=== PATIENT | male | born 1975 ===

== ENCOUNTER 2017-03-15 11:30 | Emergency (ER) | payer BC ==
[2017-03-15 11:30] VITALS: BMI 35.6
[2017-03-15 12:02] VITALS: BP 106/71; PULSE 72; RESP 18; TEMP 97.7; O2SAT 96
--- NOTE | 2017-03-15 12:52 | C.PDOC ---
History Of Present Illness 41 y/o male presents to ED with complaint of head injury and abdominal pain, associated with constipation. Patient reports 1 week ago was walking tree branch hit his left side of head, he sustained abrasion and reports feeling lump. Patient reports constipation for some time and mild intermittent abdominal pain. Denies LOC, headache, visual changes, nausea, vomiting, diarrhea , or other associated symptoms. Time Seen by Provider: 03/15/17 12:42 Chief Complaint (Nursing): Abdominal Pain History Per: Patient History/Exam Limitations: no limitations Onset/Duration Of Symptoms: Days Current Symptoms Are (Timing): Still Present Recent travel outside of the [place]: No Past Medical History Reviewed: Historical Data, Nursing Documentation, Vital Signs Vital Signs: Last Vital Signs Temp 97.7 F 03/15/17 11:51 Pulse 72 03/15/17 11:51 Resp 18 03/15/17 11:51 BP 106/71 03/15/17 11:51 Pulse Ox 96 03/15/17 13:18 - Medical History PMH: Anemia (received blood transfusion 2 yrs ago), Back Problems, Gall Bladder Disease, Kidney Stones, Malignancy (lymphoma) Family History: States: Unknown Family Hx - Social History Hx Tobacco Use: No Hx Alcohol Use: No Hx Substance Use: No - Immunization History Hx Tetanus Toxoid Vaccination: No Hx Influenza Vaccination: No Hx Pneumococcal Vaccination: No Review Of Systems Except As Marked, All Systems Reviewed And Found Negative. Constitutional: Negative for: Fever, Chills Cardiovascular: Negative for: Chest Pain Respiratory: Negative for: Cough Gastrointestinal: Positive for: Abdominal Pain, Constipation. Negative for: Nausea, Vomiting, Diarrhea Skin: Negative for: Rash Neurological: Negative for: Headache Physical Exam - Physical Exam Appears: Non-toxic, No Acute Distress Skin: Warm, Dry Head: Normacephalic, No Tenderness, No Swelling, Abrasion (superficial, left temporal scalp), No Laceration Eye(s): bilateral: Normal Inspection, PERRL, EOMI Ear(s): Bilateral: Normal Nose: Normal, No Discharge Neck: Normal ROM, No Midline Cervical Tenderness, No Paracervical Tenderness, Supple Chest: Symmetrical Cardiovascular: Rhythm Regular Respiratory: Normal Breath Sounds, No Rales, No Rhonchi, No Wheezing Gastrointestinal/Abdominal: Soft, No Tenderness, No Distention, No Guarding, No Rebound Back: Normal Inspection, No CVA Tenderness Extremity: Normal ROM Neurological/Psych: Oriented x3, Normal Speech Gait: Steady ED Course And Treatment O2 Sat by Pulse Oximetry: 96 (RA) Pulse Ox Interpretation: Normal Medical Decision Making Medical Decision Makin y.o male with 2 separate complaints of head injury and abdominal pain with constipation. Exam shows superificial abrasion to left temporal scalp. Abdomen soft no tenderness. Patient afebrile with normal neuro exam and in no distress. He does not want any labs or xrays he just wanted check up and is asking for Rx to help with constipation. Patient given follow up instructions with PCP Dr Villasenor . Instructed to return to ER if symptoms worsen or new symptoms arise. Disposition Counseled Patient/Family Regarding: Diagnosis, Need For Followup, Rx Given - Disposition Referrals: Ki Villasenor [Staff Provider] - Disposition: HOME/ ROUTINE Disposition Time: 12:51 Condition: STABLE Additional Instructions: Prescription was sent to [facility] Follow up with your primary medical doctor Dr Villasenor n 2-5 days for further evaluation. Return to the emergency department at any time if symptoms persist or worsen. 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 - Scribe Statement The provider has reviewed the documentation as recorded by the Destini Bond Provider Scribe Attestation: All medical record entries made by the Destini were at my direction and personally dictated by me. I have reviewed the chart and agree that the record accurately reflects my personal performance of the history, physical exam, medical decision making, and the department course for this patient. I have also personally directed, reviewed, and agree with the discharge instructions and disposition.
== END 2017-03-15 13:02 | disposition home or self-care (01) ==
LOC: C.ER 11:30
DX: S00.01XA Abrasion of scalp, initial encounter (principal); W22.8XXA Striking against or struck by other objects, initial encounter; Y93.01 Activity, walking, marching and hiking; K59.00 Constipation, unspecified

== ENCOUNTER 2017-03-19 12:39 | Emergency (ER) | payer BC ==
[2017-03-19 13:23] VITALS: BP 121/79; PULSE 80; RESP 16; TEMP 98.1; O2SAT 97
[2017-03-19 13:24] VITALS: BMI 33.7
[2017-03-19] MEDS ORDERED: Naproxen 550 mg Tab PO STA (14:46)
--- NOTE | 2017-03-19 14:52 | C.PDOC ---
History Of Present Illness A 41 year old male c/o of dental pain for the last 2 days. Patient notes that he was seen by his dentist, where two root canals were done and one tooth was removed. Patients next appointment is March 29 with his dentist. Patient last use of antibiotics was a few months ago. Patient reports headaches but denies fever , chills, vomiting, nausea, trauma to the area, or any other complaints. Time Seen by Provider: 03/19/17 14:03 Chief Complaint (Nursing): Dental Pain History Per: Patient History/Exam Limitations: no limitations Onset/Duration Of Symptoms: Days Current Symptoms Are (Timing): Still Present Severity: Mild Quality: Positive for: "Pain" Additional History Per: Patient Past Medical History Reviewed: Historical Data, Nursing Documentation, Vital Signs Vital Signs: Last Vital Signs Temp 98.1 F 03/19/17 13:22 Pulse 80 03/19/17 13:22 Resp 16 03/19/17 13:22 BP 121/79 03/19/17 13:22 Pulse Ox 97 03/19/17 13:22 - Medical History PMH: Anemia (received blood transfusion 2 yrs ago), Back Problems, Gall Bladder Disease, Kidney Stones, Malignancy (lymphoma), Chronic Kidney Disease Family History: States: Unknown Family Hx - Social History Hx Tobacco Use: No Hx Alcohol Use: No Hx Substance Use: No - Immunization History Hx Tetanus Toxoid Vaccination: No Hx Influenza Vaccination: No Hx Pneumococcal Vaccination: No Review Of Systems Except As Marked, All Systems Reviewed And Found Negative. Constitutional: Negative for: Fever, Chills, Other (Trauma to the area) ENT: Positive for: Mouth Pain (Dental pain) Gastrointestinal: Negative for: Nausea, Vomiting Neurological: Positive for: Headache Physical Exam - Physical Exam Appears: Non-toxic, No Acute Distress Skin: Warm, Dry Head: Atraumatic, Normacephalic Eye(s): bilateral: Normal Inspection, EOMI Nose: Normal Oral Mucosa: Moist Tongue: Normal Appearing Teeth: No Normal Dentition (Poor dentition), Caries (Multiple caries ) Gingiva: Erythema, Tender (Tenderness and erythema to the gingiva of the right canine), No Bleeding, No Abscess Throat: Normal, No Exudate Neck: Normal ROM, Supple Neurological/Psych: Oriented x3, Normal Speech, Normal Cognition ED Course And Treatment O2 Sat by Pulse Oximetry: 97 (RA) Pulse Ox Interpretation: Normal
--- NOTE | 2017-03-19 14:55 | C.PDOC ---
History Of Present Illness A 41 year old male c/o of dental pain for the last 2 days. Patient notes that he was seen by his dentist and need multiple extractions but "they are too expensive. Notes that in the last few months he had two root canals and one tooth extracted. Patients next appointment is March 29 with his dentist. Patient last use of antibiotics was a 5+ months ago. Patient reports headaches but denies fever, chills, vomiting, nausea, trauma to the area, or any other complaints. Pt was evaluated in ED multiple times for the same complaint. Time Seen by Provider: 03/19/17 14:03 Chief Complaint (Nursing): Dental Pain History Per: Patient History/Exam Limitations: no limitations Onset/Duration Of Symptoms: Days Current Symptoms Are (Timing): Still Present Severity: Mild Quality: Positive for: "Pain" Past Medical History Reviewed: Historical Data, Nursing Documentation, Vital Signs Vital Signs: Last Vital Signs Temp 98.1 F 03/19/17 13:22 Pulse 80 03/19/17 13:22 Resp 16 03/19/17 13:22 BP 121/79 03/19/17 13:22 Pulse Ox 97 03/19/17 15:12 - Medical History PMH: Anemia (received blood transfusion 2 yrs ago), Back Problems, Gall Bladder Disease, Kidney Stones, Malignancy (lymphoma), Chronic Kidney Disease Family History: States: Unknown Family Hx - Social History Hx Tobacco Use: No Hx Alcohol Use: No Hx Substance Use: No - Immunization History Hx Tetanus Toxoid Vaccination: No Hx Influenza Vaccination: No Hx Pneumococcal Vaccination: No Review Of Systems Constitutional: Negative for: Fever, Chills, Other (Trauma to the area) ENT: Positive for: Mouth Pain (Dental pain) Gastrointestinal: Negative for: Nausea, Vomiting Neurological: Positive for: Headache Physical Exam - Physical Exam Appears: Non-toxic, No Acute Distress Skin: Warm, Dry Head: Atraumatic, Normacephalic Eye(s): bilateral: Normal Inspection, EOMI Nose: Normal Oral Mucosa: Moist Teeth: No Normal Dentition (Poor dentition), Caries (Multiple caries) Gingiva: Erythema (Tenderness and erythema to the gingiva of the right canine), Swelling (mild), Tender, No Bleeding, No Abscess Throat: Normal, No Exudate Neck: Normal ROM, Supple Lymphatic: Normal Exam Chest: Symmetrical Cardiovascular: Rhythm Regular Respiratory: Normal Breath Sounds Neurological/Psych: Oriented x3, Normal Speech, Normal Cognition ED Course And Treatment O2 Sat by Pulse Oximetry: 97 (RA) Pulse Ox Interpretation: Normal Progress Note: Cleocon, Anaprox, Lidocaine, reassess and disposition. On reassessment, patient is resting comfortably, and is in no acute distress. DIsucssed concern for frequent antibiotic use. Discussed strict dental follow up in 1-2 days. Pt requested lido viscious noted much improvment with use last time. Disposition - Disposition Referrals: [facility] [Outside] Disposition: HOME/ ROUTINE Disposition Time: 14:51 Condition: STABLE Additional Instructions: Follow up with your dentist or clinic in 2-5 days for further evaluation. Take medications as prescribed. Return to the emergency department at any time if symptoms persist or worsen. Prescriptions: Clindamycin [Cleocin] 300 mg PO Q6 #28 cap Lidocaine 2% Viscous 10 ml MM Q6 PRN #10 ml PRN Reason: Pain, Mild (1-3) Naproxen [Naprosyn] 1 tab PO BID PRN #20 tab PRN Reason: Pain Instructions: Toothache (ED) - Clinical Impression Clinical Impression: Toothache - Scribe Statement The provider has reviewed the documentation as recorded by the Scribe Tawnya contreras All medical record entries made by the Scribe were at my direction and personally dictated by me. I have reviewed the chart and agree that the record accurately reflects my personal performance of the history, physical exam, medical decision making, and the department course for this patient. I have also personally directed, reviewed, and agree with the discharge instructions and disposition.
[2017-03-19] MEDS ORDERED: Naproxen 550 mg Tab PO ONE (15:00)
== END 2017-03-19 15:02 | disposition home or self-care (01) ==
LOC: C.ER 12:39
DX: K08.89 Other specified disorders of teeth and supporting structures (principal)

== ENCOUNTER 2017-03-25 23:13 | Emergency (ER) | payer BC ==
[2017-03-25 23:13] VITALS: BMI 33.7
[2017-03-25 23:26] VITALS: BP 126/68; PULSE 68; RESP 20; TEMP 98; O2SAT 100
--- NOTE | 2017-03-26 | C.PDOC ---
History Of Present Illness 41 y/o male presents to ED with complaint painful lump to the left side of his head for 2 days. Patient reports he recently had a dental infection and is currently taking antibiotics for it. Otherwise, denies neck pain, fever, chills , numbness, weakness, headache, dizziness, or other associated symptoms. Time Seen by Provider: 03/25/17 23:32 Chief Complaint (Nursing): Medical Clearance History Per: Patient History/Exam Limitations: no limitations Onset/Duration Of Symptoms: Days Current Symptoms Are (Timing): Still Present Recent travel outside of the [place]: No Past Medical History Reviewed: Historical Data, Nursing Documentation, Vital Signs Vital Signs: Last Vital Signs Temp 98 F 03/25/17 23:22 Pulse 68 03/25/17 23:22 Resp 20 03/25/17 23:22 BP 126/68 03/25/17 23:22 Pulse Ox 100 03/26/17 01:43 - Medical History PMH: Anemia (received blood transfusion 2 yrs ago), Back Problems, Gall Bladder Disease, Kidney Stones, Malignancy (lymphoma), Chronic Kidney Disease Family History: States: Unknown Family Hx - Social History Hx Tobacco Use: No Hx Alcohol Use: No Hx Substance Use: No - Immunization History Hx Tetanus Toxoid Vaccination: No Hx Influenza Vaccination: No Hx Pneumococcal Vaccination: No Review Of Systems Except As Marked, All Systems Reviewed And Found Negative. Constitutional: Negative for: Fever, Chills Respiratory: Negative for: Cough Gastrointestinal: Negative for: Nausea, Vomiting Musculoskeletal: Negative for: Neck Pain Skin: Positive for: Other (painful lump left side of head). Negative for: Rash Neurological: Negative for: Weakness, Numbness, Headache, Dizziness Physical Exam - Physical Exam Appears: Non-toxic, No Acute Distress Skin: Warm, Dry Head: Atraumatic, Normacephalic Eye(s): bilateral: Normal Inspection, PERRL, EOMI Ear(s): Bilateral: Normal Oral Mucosa: Moist Throat: Normal, No Erythema, No Exudate, No Drooling Neck: No Midline Cervical Tenderness, No Paracervical Tenderness, Supple Lymphatic: Adenopathy (1.0 cm soft, freely movable lymph node to left preauricular region) Chest: Symmetrical Cardiovascular: Rhythm Regular, No Murmur Respiratory: Normal Breath Sounds, No Rales, No Rhonchi, No Wheezing Extremity: Normal ROM, Capillary Refill (< 2 sec. ) Neurological/Psych: Oriented x3, Normal Speech, Normal Cognition ED Course And Treatment O2 Sat by Pulse Oximetry: 100 (RA) Pulse Ox Interpretation: Normal Progress Note: On reassessment, patient is resting comfortably, and is in no acute distress. Patient advised to continue taking antibiotics as directed and instructed to follow up with clinic/PMD within 1-2 days. Medical Decision Making Medical Decision Making: The patient lump has no evidence of cellulitis, this is lymphadenopathy. Pt was instructed to continue taking the antibiotics and follow up . Disposition - Disposition Referrals: Ki Villasenor [Staff Provider] - Disposition: HOME/ ROUTINE Disposition Time: 23:59 Condition: GOOD Additional Instructions: Continue taking the antibiotics for the dental infection until it is finished. Follow up with the dentist within 1-2 days without fail. Return if worsened. 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 - Scribe Statement The provider has reviewed the documentation as recorded by the Destini Bond Provider Scribe Attestation: All medical record entries made by the Destini were at my direction and personally dictated by me. I have reviewed the chart and agree that the record accurately reflects my personal performance of the history, physical exam, medical decision making, and the department course for this patient. I have also personally directed, reviewed, and agree with the discharge instructions and disposition.
== END 2017-03-26 00:03 | disposition home or self-care (01) ==
LOC: C.ER 23:13
DX: R59.1 Generalized enlarged lymph nodes (principal)

== ENCOUNTER 2017-04-08 11:20 | Emergency (ER) | payer BC ==
[2017-04-08 11:21] VITALS: BMI 33.7
[2017-04-08] MEDS ORDERED: Lidocaine 2% Inj (20ml) INFIL STA (11:42)
[2017-04-08] MEDS ORDERED: Lidocaine 2% Inj (20ml) ONE (11:57)
[2017-04-08 12:29] VITALS: BP 108/72; PULSE 64; RESP 16; TEMP 98
--- NOTE | 2017-04-08 12:44 | C.PDOC ---
History Of Present Illness 42-year-old male, presents to the emergency department with complaints of abscess to the upper back. Patient states that this started out as a small pimple, but grew bigger and more painful over the past three days. Denies fevers or chills. Chief Complaint (Nursing): Abnormal Skin Integrity History Per: Patient History/Exam Limitations: no limitations Past Medical History Reviewed: Historical Data, Nursing Documentation, Vital Signs Vital Signs: Last Vital Signs Temp 98.0 F 04/08/17 12:28 Pulse 64 04/08/17 12:28 Resp 16 04/08/17 12:28 BP 108/72 04/08/17 12:28 Pulse Ox 99 04/08/17 15:57 - Medical History PMH: Anemia (received blood transfusion 2 yrs ago), Back Problems, Gall Bladder Disease, Kidney Stones, Malignancy (lymphoma), Chronic Kidney Disease Family History: States: No Known Family Hx - Social History Hx Tobacco Use: No Hx Alcohol Use: No Hx Substance Use: No - Immunization History Hx Tetanus Toxoid Vaccination: No Hx Influenza Vaccination: No Hx Pneumococcal Vaccination: No Review Of Systems Except As Marked, All Systems Reviewed And Found Negative. Constitutional: Negative for: Fever, Chills Gastrointestinal: Negative for: Nausea, Vomiting Physical Exam - Physical Exam Appears: Non-toxic, No Acute Distress Skin: Warm, Dry, No Rash, Other (Mid-upper back: Fluctuant abscess. No drainage. ) Head: Atraumatic, Normacephalic Eye(s): bilateral: Normal Inspection Nose: Normal Lips: Normal Appearing Neck: Normal ROM ED Course And Treatment O2 Sat by Pulse Oximetry: 99 Progress Note: Patient was treated with Clindamycin po. - Incision & Drainage Of Abscess Anesthesia: Lidocaine 2% Prep Used: Betadine Procedure: Incised W/Scalpel Blade#: (11), Drained Pus (large amount), Irrigated Cavity W/Saline, Probed To Break Up Loculations, Packed W/Gauze, Cultures Obtained And Sent To Lab Disposition - Disposition Referrals: Ki Villasenor [Staff Provider] - Disposition: HOME/ ROUTINE Disposition Time: 12:23 Condition: STABLE Additional Instructions: Follow up with PMD within 2-3 days. Return nto ED if feel worse. Return to ED in 2 days for wound check and dressing change. Prescriptions: Clindamycin [Cleocin] 300 mg PO Q6 #28 cap Instructions: Abscess Incision and Drainage (ED) - Clinical Impression Clinical Impression: Abscess - Scribe Statement The provider has reviewed the documentation as recorded by the Treibroma Gould All medical record entries made by the Treibe were at my direction and personally dictated by me. I have reviewed the chart and agree that the record accurately reflects my personal performance of the history, physical exam, medical decision making, and the department course for this patient. I have also personally directed, reviewed, and agree with the discharge instructions and disposition.
[2017-04-08 12:45] VITALS: O2SAT 99
== END 2017-04-08 13:12 | disposition home or self-care (01) ==
LOC: C.ER 11:20
DX: L02.212 Cutaneous abscess of back [any part, except buttock and flank] (principal)

== ENCOUNTER 2017-04-10 02:13 | Emergency (ER) | payer BC ==
[2017-04-10 02:13] VITALS: BMI 33.7
--- NOTE | 2017-04-10 02:38 | C.PDOC ---
History Of Present Illness Patient presents to the ER with a complaint of waking up with chest pain. Patient states the pain worsens when he swallows, describes it has a burning sensation. Denies fever, chills, nausea and vomiting. Time Seen by Provider: 04/10/17 02:38 Chief Complaint (Nursing): Shortness Of Breath History Per: Patient History/Exam Limitations: no limitations Onset/Duration Of Symptoms: Hrs Current Symptoms Are (Timing): Still Present Initiating Event: Other (Not known) Quality: Other (Burning) Exacerbating Factor(s): Other (Swallowing) Current Respiratory Medications: None Severity: Mild Pain Scale Rating Of: 4 Associated Symptoms: Chest Pain. denies: Fever, Chills, Other (Nausea, Vomiting ) Recent travel outside of the [place]: No Past Medical History Reviewed: Historical Data, Nursing Documentation, Vital Signs Vital Signs: Last Vital Signs Temp 97.2 F L 04/10/17 04:00 Pulse 64 04/10/17 04:00 Resp 20 04/10/17 04:00 BP 123/63 04/10/17 04:00 Pulse Ox 97 04/10/17 04:00 - Medical History PMH: Anemia (received blood transfusion 2 yrs ago), Back Problems, Gall Bladder Disease, Kidney Stones, Malignancy (lymphoma), Chronic Kidney Disease Surgical History: No Surg Hx Family History: States: No Known Family Hx - Social History Hx Tobacco Use: No Hx Alcohol Use: No Hx Substance Use: No - Immunization History Hx Tetanus Toxoid Vaccination: No Hx Influenza Vaccination: No Hx Pneumococcal Vaccination: No Review Of Systems Constitutional: Negative for: Fever, Chills Cardiovascular: Positive for: Chest Pain Gastrointestinal: Negative for: Nausea, Vomiting Physical Exam - Physical Exam Appears: Non-toxic Skin: Warm, Dry Eye(s): bilateral: Normal Inspection Oral Mucosa: Moist Neck: Supple Chest: Symmetrical, No Tenderness Cardiovascular: Rhythm Regular, No Murmur Respiratory: No Rales, No Rhonchi, No Wheezing Gastrointestinal/Abdominal: Soft, No Tenderness Back: Other (Upper left abscess that was recently I&Ded) Extremity: Normal ROM Extremity: Bilateral: Normal Color And Temperature, Normal ROM Neurological/Psych: Oriented x3, Normal Speech, Normal Cognition Gait: Steady ED Course And Treatment - Laboratory Results Result Diagrams: 04/10/17 03:21 04/10/17 03:21 ECG: Interpreted By Me, Viewed By Me ECG Rhythm: Sinus Rhythm (68), 1st Degree HB, Nonspecific Changes O2 Sat by Pulse Oximetry: 96 Pulse Ox Interpretation: Normal - Radiology CXR: Interpreted by Me, Viewed By Me CXR Interpretation: Yes: Other (unchanged from 12/06/16). No: Infiltrates, Fracture, Pnemothorax Progress Note: EKG, blood work and CXR ordered. Pepcid and ecotrin administered. Reevaluation Time: 04:13 Reassessment Condition: Improved Disposition Counseled Patient/Family Regarding: Studies Performed, Diagnosis, Need For Followup, Rx Given - Disposition Referrals: Ki Villasenor [Staff Provider] - Disposition: HOME/ ROUTINE Disposition Time: 02:38 Condition: FAIR Prescriptions: Naproxen [Naprosyn] 1 tab PO BID PRN #25 tab PRN Reason: Pain Pantoprazole Sodium [Protonix] 20 mg PO DAILY #15 tablet. Instructions: Chest Pain (DC), Acute Wound Care (ED) - Clinical Impression Clinical Impression: Chest pain, Wound check, abscess - Scribe Statement The provider has reviewed the documentation as recorded by the Scribroma Mcintosh All medical record entries made by the Scribe were at my direction and personally dictated by me. I have reviewed the chart and agree that the record accurately reflects my personal performance of the history, physical exam, medical decision making, and the department course for this patient. I have also personally directed, reviewed, and agree with the discharge instructions and disposition.
[2017-04-10] MEDS ORDERED: Aspirin 325 mg EC Tablets PO STA (02:41)
[2017-04-10 03:27] LABS: BASO % 0.2 % (0.0-2.0); EOS # 0.2 K/uL (0.0-0.7); EOS % 2.1 % (0.0-4.0); HEMATOCRIT 40.8 % (35.0-51.0); LYMPH # 2.2 K/uL (1.0-4.3); MEAN CORPUSCULAR HEMOGLOBIN 27.9 pg (27.0-31.0); MEAN CORPUSCULAR HGB CONC 33.2 g/dL (33.0-37.0); MONO # 0.6 K/uL (0.0-0.8); MONO % 7.9 % (0.0-10.0); RED CELL DISTRIBUTION WIDTH 14.5 % (11.5-14.5); WHITE BLOOD COUNT 7.6 K/uL (4.8-10.8)
[2017-04-10 03:30] LABS: CHLORIDE 102 mmol/L (98-107)
[2017-04-10 03:31] LABS: POTASSIUM 3.9 mmol/L (3.6-5.2); SODIUM 138 mmol/L (132-148)
[2017-04-10 03:33] LABS: ALB/GLOB RATIO 1.5 (1.0-2.1); ALKALINE PHOSPHATASE 62 U/L (38-126); AST/SGOT 33 U/L (17-59); BILIRUBIN,TOTAL 0.5 mg/dL (0.2-1.3); CARBON DIOXIDE 26 mmol/L (22-30); GFR AFRICAN-AMERICAN > 60; TOTAL PROTEIN 6.9 g/dL (6.3-8.3)
[2017-04-10 03:34] LABS: ALT/SGPT 32 U/L (21-72); BLOOD UREA NITROGEN 18 mg/dL (9-20); CALCIUM 8.6 mg/dl (8.6-10.4); GLUCOSE,RANDOM 101 mg/dL (75-110)
[2017-04-10 04:05] VITALS: BP 123/63; PULSE 64; RESP 20; TEMP 97.2
[2017-04-10 04:16] VITALS: O2SAT 96
--- NOTE | 2017-04-10 08:21 | RAD ---
PROCEDURE: CHEST RADIOGRAPH, 1 VIEW. Technique: Single view portable semi erect @ 02:50. HISTORY: chest pain COMPARISON: None available. FINDINGS: LUNGS: Clear. PLEURA: No pneumothorax or pleural fluid seen. CARDIOVASCULAR: No radiographic findings to suggest acute or significant cardiovascular disease. Venous access catheter in stable, satisfactory position. OSSEOUS STRUCTURES: No significant abnormalities. VISUALIZED UPPER ABDOMEN: Normal. OTHER FINDINGS: None. IMPRESSION: No active disease. No acute/significant interval changes.
--- NOTE | 2017-04-13 19:51 | CARD ---
APPROVED REPORT EKG Measurement Heart [id number] <Conclusion> Normal sinus rhythm Nonspecific T wave abnormality Abnormal ECG
== END 2017-04-10 04:21 | disposition home or self-care (01) ==
LOC: C.ER 02:13
DX: R07.9 Chest pain, unspecified (principal); Z48.00 Encounter for change or removal of nonsurgical wound dressing

== ENCOUNTER 2017-04-27 | Emergency (ER) | payer BC ==
[2017-04-27 00:01] VITALS: BMI 33.7
[2017-04-27 00:23] VITALS: RESP 20; O2SAT 98
[2017-04-27] MEDS ORDERED: Bacitracin 500 Units/gm Oint Foilpak UD TOP ONE (01:47)
--- NOTE | 2017-04-27 01:47 | C.PDOC ---
History Of Present Illness 42 yo male c/o "bug bite" to the left leg for 2 days. Pt notes he felt something bite him, area got itchy and red. No discharge. No fever. Also notes "bump" to the left side of the neck. Recent episode last month which resolved. No SOB. No chest pain. No fever. No neck pain. Notes h/o lymphoma with chemo three years ago. Time Seen by Provider: 04/27/17 01:04 Chief Complaint (Nursing): Abnormal Skin Integrity History Per: Patient History/Exam Limitations: no limitations Onset/Duration Of Symptoms: Hrs Current Symptoms Are (Timing): Still Present Past Medical History Vital Signs: Last Vital Signs Temp 97.6 F 04/27/17 02:53 Pulse 81 04/27/17 02:53 Resp 20 04/27/17 02:53 BP 132/70 04/27/17 02:53 Pulse Ox 98 04/27/17 02:53 - Medical History PMH: Anemia (received blood transfusion 2 yrs ago), Back Problems, Gall Bladder Disease, Kidney Stones, Malignancy (lymphoma), Chronic Kidney Disease Family History: States: Unknown Family Hx - Social History Hx Tobacco Use: No Hx Alcohol Use: No Hx Substance Use: No - Immunization History Hx Tetanus Toxoid Vaccination: No Hx Influenza Vaccination: No Hx Pneumococcal Vaccination: No Review Of Systems Except As Marked, All Systems Reviewed And Found Negative. Physical Exam - Physical Exam Appears: Well, Non-toxic, No Acute Distress Skin: Warm, Dry, Other ((+) 1 cm area on ertyhema and dry skin to the medial aspect of lower leg. No fuctuance. No discharge. ) Head: Atraumatic, Normacephalic Eye(s): bilateral: Normal Inspection, EOMI Nose: Normal Oral Mucosa: Moist Throat: Normal Neck: Normal, Normal ROM, Supple Lymphatic: Adenopathy (<1 cm lower cervical lymphadenopathy), No Axilla Node Tenderness Chest: Symmetrical Cardiovascular: Rhythm Regular Respiratory: Normal Breath Sounds Gastrointestinal/Abdominal: Normal Exam, Soft, No Tenderness Back: Normal Inspection Extremity: Normal ROM Neurological/Psych: Oriented x3, Normal Speech, Normal Cognition ED Course And Treatment O2 Sat by Pulse Oximetry: 98 Progress Note: DIscussed with pt that leg erythema looks liekly to reaction to bug bite and itching. No evdince of infection. Will given RX if symtpoms persist or worsen. Also discussed with pt concern for lymphadenopathy. No signs of acute distress or infection. Pt has appt with oncology in a few days. Insturcted rstrict follow up. Case discussed with Dr Morrow, agreed upon plan, treatment and discharge. Disposition - Disposition Disposition: HOME/ ROUTINE Disposition Time: 01:45 Condition: STABLE Additional Instructions: Watch for signs of increased infection including redness, swelling and discharge. Follow up with your cancer doctor, Dr rBown, in 2-3 days. Return to ER if symptoms persist or worsen. Prescriptions: Bacitracin OINT 1 applic TP BID #1 tube Cephalexin [cephalexin] 500 mg PO BID #14 cap Instructions: Insect Bite or Sting (ED) - Clinical Impression Clinical Impression: Bug bite, Lymphadenopathy
[2017-04-27] MEDS ORDERED: Bacitracin 500 Units/gm Oint Foilpak UD ONE (01:57)
[2017-04-27 02:54] VITALS: BP 132/70; PULSE 81; TEMP 97.6
== END 2017-04-27 02:53 | disposition home or self-care (01) ==
LOC: C.ER
DX: S80.862A Insect bite (nonvenomous), left lower leg, initial encounter (principal); W57.XXXA Bitten or stung by nonvenomous insect and other nonvenomous arthropods, initial encounter; R59.1 Generalized enlarged lymph nodes

== ENCOUNTER 2017-05-26 23:20 | Emergency (ER) | payer BC ==
[2017-05-26 23:21] VITALS: BMI 33.7
[2017-05-27 00:13] LABS: BASO # 0.1 K/uL (0.0-0.2); EOS # 0.2 K/uL (0.0-0.7); HEMOGLOBIN 14.6 g/dL (12.0-18.0)
[2017-05-27 00:15] LABS: EOS % 2.7 % (0.0-4.0); LYMPH # 2.5 K/uL (1.0-4.3); LYMPH % 30.4 % (20.0-40.0); MEAN CELL VOLUME 83.9 fL (80.0-94.0); MEAN CORPUSCULAR HEMOGLOBIN 27.2 pg (27.0-31.0); MEAN CORPUSCULAR HGB CONC 32.5 g/dL (33.0-37.0); MONO # 0.5 K/uL (0.0-0.8); MONO % 5.9 % (0.0-10.0); NEUT # 4.8 K/uL (1.8-7.0); NRBC % 0.1 % (0.0-2.0); RBC 5.36 Mil/uL (4.40-5.90); RED CELL DISTRIBUTION WIDTH 14.3 % (11.5-14.5); WHITE BLOOD COUNT 8.1 K/uL (4.8-10.8)
[2017-05-27 00:25] LABS: BLOOD UREA NITROGEN 12 mg/dL (9-20); CALCIUM 8.5 mg/dl (8.6-10.4); GFR AFRICAN-AMERICAN > 60; GFR NON-AFRICAN AMERICAN > 60
--- NOTE | 2017-05-27 00:44 | C.PDOC ---
History Of Present Illness Pt c/o left sided headache. He also has left sided toothache. Time Seen by Provider: 05/26/17 23:41 Chief Complaint (Nursing): Headache History Per: Patient Onset/Duration Of Symptoms: Days (1), Intermittent Episodes Current Symptoms Are (Timing): Gone Severity: Moderate Quality: "Pain" Additional History Per: Prior Records Past Medical History Reviewed: Historical Data, Nursing Documentation, Vital Signs Vital Signs: Last Vital Signs Temp 98.1 F 05/26/17 23:25 Pulse 69 05/26/17 23:25 Resp 17 05/26/17 23:25 BP 108/68 05/26/17 23:25 Pulse Ox 96 05/26/17 23:25 - Medical History PMH: Anemia (received blood transfusion 2 yrs ago), Back Problems, Gall Bladder Disease, Kidney Stones, Malignancy (lymphoma), Chronic Kidney Disease Family History: States: Unknown Family Hx - Social History Hx Tobacco Use: No Hx Alcohol Use: No Hx Substance Use: No - Immunization History Hx Tetanus Toxoid Vaccination: No Hx Influenza Vaccination: No Hx Pneumococcal Vaccination: No Review Of Systems Except As Marked, All Systems Reviewed And Found Negative. Constitutional: Negative for: Fever, Weakness Eyes: Negative for: Pain, Vision Change ENT: Positive for: Mouth Pain. Negative for: Throat Pain Cardiovascular: Negative for: Chest Pain Respiratory: Negative for: Shortness of Breath Gastrointestinal: Negative for: Nausea, Vomiting, Abdominal Pain Musculoskeletal: Negative for: Neck Pain Skin: Negative for: Rash Neurological: Positive for: Headache. Negative for: Weakness, Numbness, Incoordination, Change in Speech, Confusion, Seizures, Altered Mental Status Physical Exam - Physical Exam Appears: Non-toxic, No Acute Distress Skin: Normal Color, Warm, Dry, No Rash Head: Atraumatic Eye(s): bilateral: Normal Inspection, PERRL, EOMI Ear(s): Bilateral: Normal Oral Mucosa: Moist, No Drooling, No Trismus Tongue: Normal Appearing Teeth: Caries, Tender To Palpation (left upper) Gingiva: No Abscess Throat: Normal Neck: Normal ROM, Supple Cardiovascular: Rhythm Regular Respiratory: Normal Breath Sounds, No Accessory Muscle Use Gastrointestinal/Abdominal: Soft, No Tenderness Extremity: Normal ROM Neurological/Psych: Oriented x3, Normal Speech, Normal Cognition, Normal Cranial Nerves, No Cerebellar Signs, Normal Motor, Normal Sensation ED Course And Treatment - Laboratory Results Result Diagrams: 05/27/17 00:11 05/27/17 00:11 Lab Interpretation: No Acute Changes ECG: Interpreted By Me, Viewed By Me ECG Rhythm: Sinus Rhythm, Nonspecific Changes ECG Interpretation: No Acute Changes Rate From EC O2 Sat by Pulse Oximetry: 96 Pulse Ox Interpretation: Normal Reassessment Condition: Improved Disposition Counseled Patient/Family Regarding: Studies Performed, Diagnosis, Need For Followup, Rx Given - Disposition Disposition: HOME/ ROUTINE Disposition Time: 00:44 Condition: IMPROVED Additional Instructions: Follow up with your doctor for further evaluation, including MRI of the head. Follow up with a dentist. Return to the ER if you develop fever, vomiting, weakness, numbness, worsening of symptoms or if you have any other concerns. Prescriptions: Amoxicillin/Clavulanate [Augmentin 875 MG-125 MG] 1 tab PO BID #14 tab Instructions: Dental Caries (ED) - Clinical Impression Clinical Impression: Left-sided headache, Toothache, Poor dentition
[2017-05-27 05:46] VITALS: BP 105/69; PULSE 70; RESP 18; TEMP 97.5; O2SAT 97
--- NOTE | 2017-05-28 13:32 | CARD ---
APPROVED REPORT EKG Measurement Heart [id number] SD [id number] [id number] <Conclusion> Normal sinus rhythm Nonspecific T wave abnormality Abnormal ECG
== END 2017-05-27 00:50 | disposition home or self-care (01) ==
LOC: C.ER 23:20
DX: K02.9 Dental caries, unspecified (principal)
CPT/HCPCS: 80048; 85025; 93005; 96374; 99284; J1885

== ENCOUNTER 2017-08-22 18:08 | Emergency (ER) | payer BC ==
[2017-08-22 18:08] VITALS: BMI 33.7
[2017-08-22 18:22] VITALS: TEMP 97.8
[2017-08-22] MEDS ORDERED: Amoxicillin-Clav 875-125 mg Tab PO STA (19:05)
[2017-08-22] MEDS ORDERED: Amoxicillin-Clav 875-125 mg Tab PO ONE (19:25)
--- NOTE | 2017-08-22 19:36 | C.PDOC ---
History Of Present Illness 42 year old male presents to the ED with complaints of dental pain. Patient states that he had an infection in his mouth and has not had the time to get his teeth fixed due to fear of missing time in his new job. He denies fever, chills. Time Seen by Provider: 08/22/17 18:39 Chief Complaint (Nursing): Dental Pain History Per: Patient History/Exam Limitations: no limitations Onset/Duration Of Symptoms: Days Current Symptoms Are (Timing): Still Present Quality: Positive for: "Pain" Recent travel outside of the [place]: No Additional History Per: Patient Past Medical History Reviewed: Historical Data, Nursing Documentation, Vital Signs Vital Signs: Last Vital Signs Temp 97.8 F 08/22/17 18:21 Pulse 75 08/22/17 19:45 Resp 17 08/22/17 19:45 BP 112/68 08/22/17 19:45 Pulse Ox 100 08/22/17 20:59 - Medical History PMH: Anemia (received blood transfusion 2 yrs ago), Back Problems, Gall Bladder Disease, Kidney Stones, Malignancy (lymphoma), Chronic Kidney Disease Surgical History: No Surg Hx Family History: States: Unknown Family Hx - Social History Hx Tobacco Use: No Hx Alcohol Use: No Hx Substance Use: No - Immunization History Hx Tetanus Toxoid Vaccination: No Hx Influenza Vaccination: No Hx Pneumococcal Vaccination: No Review Of Systems Constitutional: Negative for: Fever, Chills ENT: Positive for: Mouth Pain. Negative for: Mouth Swelling, Throat Swelling Physical Exam - Physical Exam Appears: Well, Non-toxic, No Acute Distress Skin: Normal Color, Warm, Dry, No Rash Head: Atraumatic, Normacephalic Eye(s): bilateral: Normal Inspection, PERRL, EOMI Oral Mucosa: Moist Teeth: No Normal Dentition (Cracked teeth with mild swelling and tenderness) Gingiva: Normal Appearing, No Swelling, No Abscess Throat: Normal, No Erythema, No Exudate Neck: Normal ROM, Supple Chest: Symmetrical, No Tenderness Respiratory: Normal Breath Sounds Extremity: Normal ROM Neurological/Psych: Oriented x3, Normal Speech, Normal Cognition, Normal Motor, Normal Sensation Gait: Steady ED Course And Treatment O2 Sat by Pulse Oximetry: 100 (Room air) Pulse Ox Interpretation: Normal Medical Decision Making Medical Decision Making: Plan : * Augmentin PO * Motrin 600 mg PO Disposition Doctor Will See Patient In The: Office - Disposition Referrals: Betzy Johnson DMD [Staff Provider] - Monty Guajardo DMD [Staff Provider] - Freddie Green DMD [Staff Provider] - Disposition: HOME/ ROUTINE Disposition Time: 19:37 Condition: GOOD Additional Instructions: Follow up with the medical doctor within 1-2 days. Return if worsened. Prescriptions: Amoxicillin/Clavulanate [Augmentin 875 MG-125 MG] 1 tab PO BID #14 tab Ibuprofen [Motrin Tab] 800 mg PO TID #20 tab Instructions: Dental Abscess (ED) Forms: [facility] (Khmer) - Clinical Impression Clinical Impression: Dental abscess - PA / FAMILY MEDICINE PHYSICIAN ASSISTANT / Resident Statement MD/DO has reviewed & agrees with the documentation as recorded. - Scribe Statement The provider has reviewed the documentation as recorded by the Scribe Asa Daniels All medical record entries made by the Scribe were at my direction and personally dictated by me. I have reviewed the chart and agree that the record accurately reflects my personal performance of the history, physical exam, medical decision making, and the department course for this patient. I have also personally directed, reviewed, and agree with the discharge instructions and disposition.
[2017-08-22 19:46] VITALS: BP 112/68; PULSE 75; RESP 17
[2017-08-22 19:59] VITALS: O2SAT 100
== END 2017-08-22 19:47 | disposition home or self-care (01) ==
LOC: C.ER 18:08
DX: K04.7 Periapical abscess without sinus (principal)

== ENCOUNTER 2018-01-02 03:00 | Emergency (ER) | payer BC ==
[2018-01-02 03:00] VITALS: BMI 33.7
[2018-01-02 03:11] VITALS: O2SAT 98
--- NOTE | 2018-01-02 04:52 | C.PDOC ---
History Of Present Illness 42 year old male presents to the ED for evaluation of a fluttering sensation to his right chest wall which began tonight. Patient notes the sensation is felt at the site of a port-a-cath device that was placed a few years ago during cancer treatment. Patient now feels uncomfortable having the device inside. He notes feeling fluttering waves that radiate into his left chest. Patient is concerned of the effect and wishes for the device to be removed. He denies chest pain (contrary to triage), shortness of breath, palpitations, diaphoresis , nausea, vomiting, extremity numbness/weakness, recent prolonged travel . Time Seen by Provider: 01/02/18 03:19 Chief Complaint (Nursing): Chest Pain History Per: Patient History/Exam Limitations: no limitations Onset/Duration Of Symptoms: Hrs Current Symptoms Are (Timing): Still Present Quality: denies: "Pain" Associated Symptoms: denies: Nausea, Dyspnea, Diaphoresis Additional History Per: Patient Past Medical History Reviewed: Historical Data, Nursing Documentation, Vital Signs Vital Signs: Last Vital Signs Temp 98 F 01/02/18 04:56 Pulse 78 01/02/18 04:56 Resp 16 01/02/18 04:56 BP 145/56 L 01/02/18 04:56 Pulse Ox 98 01/02/18 06:47 - Medical History PMH: Anemia (received blood transfusion 2 yrs ago), Back Problems, Gall Bladder Disease, Kidney Stones, Malignancy (lymphoma), Chronic Kidney Disease Surgical History: No Surg Hx Family History: States: Unknown Family Hx - Social History Hx Tobacco Use: No Hx Alcohol Use: No Hx Substance Use: No - Immunization History Hx Tetanus Toxoid Vaccination: No Hx Influenza Vaccination: No Hx Pneumococcal Vaccination: No Review Of Systems Constitutional: Negative for: Sweats Cardiovascular: Positive for: Other (fluttering sensation in right chest wall ) . Negative for: Chest Pain, Palpitations Gastrointestinal: Negative for: Nausea, Vomiting Neurological: Negative for: Weakness, Numbness Physical Exam - Physical Exam Appears: Non-toxic, No Acute Distress Skin: Normal Color, Warm, Dry Head: Atraumatic, Normacephalic Eye(s): bilateral: Normal Inspection, PERRL Oral Mucosa: Moist Neck: Supple Chest: Symmetrical, No Deformity, No Tenderness, Other (scar noted to right upper chest wall ) Cardiovascular: Rhythm Regular, No Murmur Respiratory: Normal Breath Sounds, No Rales, No Rhonchi, No Wheezing Extremity: Normal ROM, No Calf Tenderness, Capillary Refill (less than 2 seconds ) Neurological/Psych: Oriented x3, Normal Speech, Normal Cognition Gait: Steady ED Course And Treatment O2 Sat by Pulse Oximetry: 98 (on RA) Pulse Ox Interpretation: Normal Progress Note: CXR ordered. Results show device in place. No fluids or effusion. EKG ordered and reviewed. On reassessment, patient is resting comfortably, showing no signs of distress and is stable for discharge. Patient is advised to follow up with general surgery for further evaluation and/or return to the ED if symptoms persist or worsen. Disposition Counseled Patient/Family Regarding: Diagnosis, Need For Followup, Rx Given - Disposition Referrals: Fady Reed MD [Staff Provider] - Disposition: HOME/ ROUTINE Disposition Time: 04:49 Condition: STABLE Additional Instructions: Follow up with general surgeon for follw up Return to ER if worse Forms: [facility] (Latvian), General Discharge Instructions - Clinical Impression Clinical Impression: Right-sided chest wall pain - PA / ROOM SERVICE ASSOCIATE / Resident Statement MD/DO has reviewed & agrees with the documentation as recorded. - Scribe Statement The provider has reviewed the documentation as recorded by the Scribe (Aileen Ramírez) All medical record entries made by the Scribe were at my direction and personally dictated by me. I have reviewed the chart and agree that the record accurately reflects my personal performance of the history, physical exam, medical decision making, and the department course for this patient. I have also personally directed, reviewed, and agree with the discharge instructions and disposition.
[2018-01-02 05:12] VITALS: BP 145/56; PULSE 78; RESP 16; TEMP 98
--- NOTE | 2018-01-02 10:23 | RAD ---
HISTORY: right chest pain, at site of device insert COMPARISON: Chest x-ray performed 04/10/17 TECHNIQUE: Chest PA and lateral FINDINGS: Right-sided MediPort extends the cavoatrial junction. LUNGS: No focal consolidation. Please note that chest x-ray has limited sensitivity for the detection of pulmonary masses. PLEURA: No significant pleural effusion identified. No definite pneumothorax . CARDIOVASCULAR: Heart size appears within normal limits. OSSEOUS STRUCTURES: No acute osseous abnormality identified. VISUALIZED UPPER ABDOMEN: Unremarkable. OTHER FINDINGS: None. IMPRESSION: No focal consolidation identified.
--- NOTE | 2018-01-04 12:53 | CARD ---
APPROVED REPORT EKG Measurement Heart [id number] WI 164P29 [id number] <Conclusion> Normal sinus rhythm Incomplete right bundle branch block Borderline ECG
== END 2018-01-02 04:56 | disposition home or self-care (01) ==
LOC: C.ER 03:00
DX: R07.89 Other chest pain (principal)

== ENCOUNTER 2018-02-19 03:58 | Emergency (ER) | payer BC ==
[2018-02-19 03:58] VITALS: BMI 33.7
[2018-02-19 04:20] VITALS: BP 117/77; TEMP 97.9
--- NOTE | 2018-02-19 04:33 | C.PDOC ---
History Of Present Illness 42 y/o male presents to the ED complaining of shortness of breath. States he woke up and felt his heart was racing. Patient reports he had taken 2 tabs of percocet for his leg pain. Now speaking in complete sentences. On arrival O2 sat is 92% on room air. Denies associated fever, chills, nausea, vomiting, or recent URI symptoms. Time Seen by Provider: 02/19/18 04:32 Chief Complaint (Nursing): Shortness Of Breath History Per: Patient History/Exam Limitations: no limitations Onset/Duration Of Symptoms: Hrs Current Symptoms Are (Timing): Still Present Quality: Dull Current Respiratory Medications: None Severity: Moderate Pain Scale Rating Of: 4 Associated Symptoms: Heart Racing Reports Recently: Treated By A Physician Recent travel outside of the [place]: No Additional History Per: Family Past Medical History Reviewed: Historical Data, Nursing Documentation, Vital Signs Vital Signs: Last Vital Signs Temp 97.9 F 02/19/18 04:17 Pulse 63 02/19/18 05:25 Resp 18 02/19/18 05:25 BP 117/77 02/19/18 04:17 Pulse Ox 98 02/19/18 05:25 - Medical History PMH: Anemia (received blood transfusion 2 yrs ago), Back Problems, Gall Bladder Disease, Kidney Stones, Malignancy (lymphoma), Chronic Kidney Disease Family History: States: Unknown Family Hx - Social History Hx Tobacco Use: No Hx Alcohol Use: No Hx Substance Use: No - Immunization History Hx Tetanus Toxoid Vaccination: No Hx Influenza Vaccination: No Hx Pneumococcal Vaccination: No Review Of Systems Constitutional: Negative for: Fever, Chills ENT: Negative for: Nose Congestion Cardiovascular: Positive for: Palpitations Respiratory: Positive for: Shortness of Breath. Negative for: Cough Gastrointestinal: Negative for: Nausea, Vomiting Genitourinary: Negative for: Dysuria Musculoskeletal: Negative for: Back Pain Skin: Negative for: Rash Neurological: Negative for: Weakness Psych: Positive for: Anxiety Physical Exam - Physical Exam Appears: Non-toxic, No Acute Distress, Other (appears anxious) Skin: Warm, Dry Head: Normacephalic Eye(s): bilateral: Normal Inspection Oral Mucosa: Moist Neck: Trachea Midline, Supple Chest: Symmetrical, No Tenderness, Other (port right chest) Cardiovascular: Rhythm Regular Respiratory: No Rales, No Rhonchi, No Wheezing Gastrointestinal/Abdominal: Soft, No Tenderness, No Distention Back: No CVA Tenderness Extremity: Normal ROM Extremity: Bilateral: Atraumatic, No Pedal Edema, Normal Color And Temperature Pulses: Left Dorsalis Pedis: Normal, Right Dorsalis Pedis: Normal Neurological/Psych: Oriented x3 Gait: Steady ED Course And Treatment - Laboratory Results Result Diagrams: 02/19/18 04:53 ECG: Interpreted By Me, Viewed By Me ECG Rhythm: Sinus Rhythm (65), Nonspecific Changes O2 Sat by Pulse Oximetry: 92 (RA) Pulse Ox Interpretation: Abnormal Progress Note: Labs, EKG, CXR ordered and reivewed. Against Medical Advice - AMA Patient Left Against Medical Advice: The patient declines admission to the hospital and wishes to leave the Emergency Department. This action is against my medical advice. This decision was made with informed refusal. The patient was told that admission to the hospital is necessary. Explanation of the reasons why were discussed. The risks of leaving were explained to the patient and include, but are not limited to, worsening of known or currently unknown conditions, permanent disability and from undiagnosed or untreated conditions. The patient has the capacity to make this informed decision and understands my explanation of the current medical problem and risks of leaving. The patient voluntarily accepts these risks and signed an AMA form documenting our conversation. The patient was given the opportunity to ask questions and reconsider. The patient was encouraged to return to the Emergency Department at any time for further care. Disposition Counseled Patient/Family Regarding: Studies Performed, Diagnosis, Need For Followup - Disposition Referrals: Ki Villasenor [Staff Provider] - Disposition: AGAINST MEDICAL ADVICE Disposition Time: 04:33 Condition: FAIR Instructions: Shortness of Breath (Dyspnea) (DC), Anxiety, Adult (DC) Forms: [employer] (East [place]orese) - Clinical Impression Clinical Impression: Dyspnea, Anxiety - Scribe Statement The provider has reviewed the documentation as recorded by the Destini Varela Provider Attestation: All medical record entries made by the [place] were at my direction and personally dictated by me. I have reviewed the chart and agree that the record accurately reflects my personal performance of the history, physical exam, medical decision making, and the department course for this patient. I have also personally directed, reviewed, and agree with the discharge instructions and disposition.
[2018-02-19 04:56] LABS: BASO % 0.3 % (0.0-2.0); EOS # 0.1 K/uL (0.0-0.7); EOS % 1.5 % (0.0-4.0); HEMOGLOBIN 14.5 g/dL (12.0-18.0); LYMPH # 1.5 K/uL (1.0-4.3); MEAN CELL VOLUME 82.8 fL (80.0-94.0); MEAN CORPUSCULAR HEMOGLOBIN 28.1 pg (27.0-31.0); MEAN CORPUSCULAR HGB CONC 33.9 g/dL (33.0-37.0); MEAN PLATELET VOLUME 8.5 fL (7.2-11.7); MONO # 0.5 K/uL (0.0-0.8); NEUT % 73.2 % (50.0-75.0); NRBC % 0.1 % (0.0-2.0); RBC 5.14 Mil/uL (4.40-5.90); RED CELL DISTRIBUTION WIDTH 14.4 % (11.5-14.5); WHITE BLOOD COUNT 8.1 K/uL (4.8-10.8)
[2018-02-19 05:10] LABS: INR 1.1; PARTIAL THROMBOPLASTIN TIME 27 SECONDS (21-34); PROTHROMBIN TIME 12.2 SECONDS (9.7-12.2)
[2018-02-19 05:25] VITALS: PULSE 63; RESP 18
[2018-02-19 05:26] LABS: ABG ALLEN TEST POS; ARTERIAL BLOOD GAS HCO3 24.3 mmol/L (21-28); ARTERIAL BLOOD GAS O2 SAT 89.8 % (95-98); ARTERIAL BLOOD GAS PCO2 47 mm/Hg (35-45); ARTERIAL BLOOD GAS PH 7.35 (7.35-7.45); ARTERIAL BLOOD GAS PO2 48 mm/Hg (80-100); ARTERIAL BLOOD GAS TCO2 27.3 mmol/L (22-28)
[2018-02-19 05:44] LABS: D DIMER < 200 ng/mlDDU (0-243)
[2018-02-19 05:49] VITALS: O2SAT 92
[2018-02-19 06:02] LABS: ALB/GLOB RATIO 1.3 (1.0-2.1); ALT/SGPT 17 U/L (21-72); AST/SGOT 30 U/L (17-59); B-TYPE NATRIURETIC PEPTIDE 131 pg/mL (0-450); BLOOD UREA NITROGEN 12 mg/dL (9-20); CALCIUM 8.8 mg/dl (8.6-10.4); GFR AFRICAN-AMERICAN > 60; GFR NON-AFRICAN AMERICAN > 60
--- NOTE | 2018-02-19 08:20 | RAD ---
PROCEDURE: CHEST RADIOGRAPH, 1 VIEW HISTORY: SOB COMPARISON: 01/02/2018 FINDINGS: LUNGS: No consolidation PLEURA: No pneumothorax or pleural fluid seen. CARDIOVASCULAR: Top-normal heart size. . Minimal pulmonary venous congestion probable. Port-A-Cath inserted tip superior vena cava- atrial junction. OSSEOUS STRUCTURES: No significant abnormalities. VISUALIZED UPPER ABDOMEN: Normal. OTHER FINDINGS: None. IMPRESSION: Port-A-Cath insertiontip satisfactory. No pneumothorax. Top-normal heart size. Minimal pulmonary venous congestion- probable - ; probably similar status under slightly increased compared to prior.
--- NOTE | 2018-02-19 13:01 | CARD ---
APPROVED REPORT EKG Measurement Heart [id number] MT 188P32 [id number] <Conclusion> Normal sinus rhythm Nonspecific T wave abnormality Abnormal ECG
== END 2018-02-19 05:42 | disposition left against medical advice (07) ==
LOC: C.ER 03:58
DX: F41.9 Anxiety disorder, unspecified (principal); R06.00 Dyspnea, unspecified

== ENCOUNTER 2018-04-15 10:30 | Day surgery (SDC) | payer BC ==
[2018-04-10 12:04] VITALS: BMI 35.9
[2018-04-15 11:33] VITALS: RESP 18; TEMP 97.7
[2018-04-15] MEDS ORDERED: Lidocaine Hydrochloride 0 ML INJ ONE (12:24)
[2018-04-15] MEDS ORDERED: Lidocaine Hydrochloride 10 ML INJ ONE (12:52)
--- NOTE | 2018-04-15 13:21 | PCM.SURG1 ---
Surgeon's Initial Post Op Note - Surgeon's Notes Surgeon: Cathleen Diagnostic Technologist: NAN LopezY2 Pre-Operative Diagnosis: Unnecessary portacath - No longer using Portacath Operative Findings: portacath Post-Operative Diagnosis: same Operation Performed: removal of portacath Specimen/Specimens Removed: portacath Estimated Blood Loss: EBL {In ML}: 10 Date of Surgery/Procedure: 04/15/18 Time of Surgery/Procedure: 12:45
[2018-04-15 13:57] VITALS: BP 124/70; PULSE 62; O2SAT 99
--- NOTE | 2018-04-16 06:38 | OP ---
PROCEDURE DATE: 04/15/2018 PREOPERATIVE DIAGNOSIS: Unnecessary intravascular device, Port-A-Cath. POSTOPERATIVE DIAGNOSIS: Unnecessary intravascular device, Port-A-Cath. PROCEDURE CARRIED OUT: Removal of double chamber, Port-A-Cath right jugular vein. SURGEON: Ayaan Connolly Jr., MD [facility] PRESSER: Jessica Silva TYPE OF ANESTHESIA: 1% Xylocaine ANESTHESIA ADMINISTERED BY: Myself. INDICATIONS: A middle-aged male, history of lymphoma, port not used for years. FINDINGS: Port-A-Cath was removed completely and uneventfully. There was no pus or signs of infection. DESCRIPTION OF PROCEDURE: The patient was given local anesthesia by infiltration. The area had been prepped and draped. The hairs on the skin shaved away. We then removed the area uneventfully. Obtained hemostasis on the port site and closed the skin with a subcuticular closure and Steri-Strips. Pressure dressing applied. Blood loss, less than 10 mL. Operation carried out is removal of Port-A-Cath, right chest wall. Ayaan Connolly Jr., MD
== END 2018-04-15 13:49 | disposition home or self-care (01) ==
LOC: C.SDS 10:30
PROVIDERS: ATTEND Surgery Vascular Surgery
DX: Z45.2 Encounter for adjustment and management of vascular access device (principal); Z85.72 Personal history of non-Hodgkin lymphomas; Z92.21 Personal history of antineoplastic chemotherapy; Z98.890 Other specified postprocedural states

== ENCOUNTER 2018-04-19 21:17 | Emergency (ER) | payer BC ==
[2018-04-19 21:17] VITALS: BMI 35.9
[2018-04-19 22:13] LABS: BASO % 0.5 % (0.0-2.0); EOS # 0.1 K/uL (0.0-0.7); EOS % 1.3 % (0.0-4.0); HEMOGLOBIN 14.1 g/dL (12.0-18.0); LYMPH # 2.2 K/uL (1.0-4.3); LYMPH % 25.9 % (20.0-40.0); MEAN CELL VOLUME 83.6 fL (80.0-94.0); MEAN CORPUSCULAR HEMOGLOBIN 27.7 pg (27.0-31.0); MEAN CORPUSCULAR HGB CONC 33.1 g/dL (33.0-37.0); MONO # 0.6 K/uL (0.0-0.8); MONO % 6.7 % (0.0-10.0); NEUT # 5.6 K/uL (1.8-7.0); NEUT % 65.6 % (50.0-75.0); RBC 5.1 Mil/uL (4.40-5.90); RED CELL DISTRIBUTION WIDTH 14.2 % (11.5-14.5); WHITE BLOOD COUNT 8.5 K/uL (4.8-10.8)
[2018-04-19 22:25] LABS: ALB/GLOB RATIO 1.3 (1.0-2.1); ALBUMIN 4.2 g/dL (3.5-5.0); ALT/SGPT 25 U/L (21-72); AST/SGOT 36 U/L (17-59); BLOOD UREA NITROGEN 17 mg/dL (9-20); GFR AFRICAN-AMERICAN > 60; GFR NON-AFRICAN AMERICAN > 60
[2018-04-19 23:25] VITALS: BP 146/76; PULSE 80; RESP 20; TEMP 98; O2SAT 98
--- NOTE | 2018-04-20 00:44 | C.PDOC ---
History Of Present Illness 43 year old male presents to the ED for evaluation of a sharp mid-chest pain. Patient sates the pain is over the area where his port used to be. The port was removed from the right side of his chest around 4-5 days ago. Patient denies fever, chills, cough and shortness of breath. Chief Complaint (Nursing): Shortness Of Breath History Per: Patient History/Exam Limitations: no limitations Onset/Duration Of Symptoms: Days Current Symptoms Are (Timing): Still Present Quality: Sharp, "Pain" Current Respiratory Medications: See Home Med List Associated Symptoms: Chest Pain. denies: Fever, Chills, Bloody Cough, Productive Cough Additional History Per: Patient Past Medical History Reviewed: Historical Data, Nursing Documentation, Vital Signs Vital Signs: Last Vital Signs Temp 98 F 04/19/18 23:24 Pulse 80 04/19/18 23:24 Resp 20 04/19/18 23:24 BP 146/76 04/19/18 23:24 Pulse Ox 98 04/20/18 00:50 - Medical History PMH: Anemia (received blood transfusion 2 yrs ago), Anxiety, Back Problems, Gall Bladder Disease, Kidney Stones, Malignancy (lymphoma), Chronic Kidney Disease Surgical History: No Surg Hx Family History: States: Unknown Family Hx - Social History Hx Tobacco Use: No Hx Alcohol Use: No Hx Substance Use: No - Immunization History Hx Tetanus Toxoid Vaccination: No Hx Influenza Vaccination: No Hx Pneumococcal Vaccination: No Review Of Systems Constitutional: Negative for: Fever, Chills Cardiovascular: Positive for: Chest Pain Respiratory: Negative for: Cough, Shortness of Breath Physical Exam - Physical Exam Appears: Non-toxic, No Acute Distress Skin: Normal Color, Warm, Dry Head: Atraumatic, Normacephalic Eye(s): bilateral: Normal Inspection Oral Mucosa: Moist Neck: Supple Chest: Symmetrical, No Deformity, No Tenderness Cardiovascular: Rhythm Regular, No Murmur Respiratory: Normal Breath Sounds, No Rales, No Rhonchi, No Wheezing Extremity: Normal ROM, Capillary Refill (less than 2 seconds ) Neurological/Psych: Oriented x3, Normal Speech, Normal Cognition ED Course And Treatment - Laboratory Results Result Diagrams: 04/19/18 22:04 04/19/18 22:04 ECG: Interpreted By Me, Viewed By Me ECG Rhythm: Sinus Rhythm Interpretation Of ECG: Sinus Rhythm at rate 73bpm. Normal axis and intervals. Rate From EC O2 Sat by Pulse Oximetry: 98 (on RA) Pulse Ox Interpretation: Normal Medical Decision Making Medical Decision Making: Progress: Bloodwork, CXR, EKG ordered and reviewed. On re-exam, patient is resting comfortably, showing no signs of distress and is stable for discharge. Patient is advised to f/u with his PMD within 1-2 days for further evaluation and/or return to the ED if symptoms persist or worsen. Disposition - Disposition Referrals: [facility], [Non-Staff] - Disposition: HOME/ ROUTINE Disposition Time: 23:00 Condition: GOOD Additional Instructions: YONIS CHA, thank you for letting us take care of you today. Your provider was Colby Gabriel DO. The emergency medical care you received today was directed at your acute symptoms. If you were prescribed any medication, please fill it and take as directed. It may take several days for your symptoms to resolve. Return to the Emergency Department if your symptoms worsen, do not improve, or if you have any other problems. Please contact your doctor or call one of the physicians/clinics you have been referred to that are listed on the Patient Visit Information form that is included in your discharge packet. Bring any paperwork you were given at discharge with you along with any medications you are taking to your follow up visit. Our treatment cannot replace ongoing medical care by a primary care provider outside of the emergency department. Thank you for allowing the [facility] team to be part of your care today. Follow up with your primary care doctor in 2-3 days for re-evaluation and further management. Instructions: Chest Pain That Is Not Caused by the Heart (DC) Forms: [employer] (Luxembourgish) - Clinical Impression Clinical Impression: Right-sided chest wall pain - Scribe Statement The provider has reviewed the documentation as recorded by the Scribe (Aileen Ramírez) Provider Attestation: All medical record entries made by the Scribe were at my direction and personally dictated by me. I have reviewed the chart and agree that the record accurately reflects my personal performance of the history, physical exam, medical decision making, and the department course for this patient. I have also personally directed, reviewed, and agree with the discharge instructions and disposition.
--- NOTE | 2018-04-20 10:14 | RAD ---
PROCEDURE: CHEST RADIOGRAPH, 1 VIEW HISTORY: chest pain COMPARISON: Comparison is made with 02/19/2018 FINDINGS: LUNGS: No evidence of new infiltrate or consolidation in the lungs PLEURA: No pneumothorax or pleural fluid seen. CARDIOVASCULAR: Normal. OSSEOUS STRUCTURES: No significant abnormalities. VISUALIZED UPPER ABDOMEN: Normal. OTHER FINDINGS: None. IMPRESSION: No active disease.
== END 2018-04-19 23:24 | disposition home or self-care (01) ==
LOC: C.ER 21:17
DX: R07.89 Other chest pain (principal); D64.9 Anemia, unspecified; Z85.72 Personal history of non-Hodgkin lymphomas; F17.210 Nicotine dependence, cigarettes, uncomplicated

== ENCOUNTER 2018-05-01 23:06 | Emergency (ER) | payer BC ==
[2018-05-01 23:29] VITALS: BMI 34.5
[2018-05-01 23:31] VITALS: BP 131/75; PULSE 78; TEMP 98.4; O2SAT 96
--- NOTE | 2018-05-01 23:46 | C.PDOC ---
History Of Present Illness 43 year old male presents to ED to have his blood pressure checked. He states he was at [employer] and checked his blood pressure and another customer standing by told him it was high and he should go to the hospital. Patient states he has no history of HTN and denies any headache, dizziness, pain, numbness or weakness. Time Seen by Provider: 05/01/18 23:33 Chief Complaint (Nursing): Medical Clearance History Per: Patient History/Exam Limitations: no limitations Onset/Duration Of Symptoms: Hrs Current Symptoms Are (Timing): Still Present Recent travel outside of the [place]: No Past Medical History Reviewed: Historical Data, Nursing Documentation, Vital Signs Vital Signs: Last Vital Signs Temp 98.4 F 05/01/18 23:29 Pulse 78 05/01/18 23:29 Resp 20 05/01/18 23:49 BP 131/75 05/01/18 23:29 Pulse Ox 96 05/01/18 23:46 - Medical History PMH: Anemia (received blood transfusion 2 yrs ago), Anxiety, Back Problems, Gall Bladder Disease, Kidney Stones, Malignancy (lymphoma), Chronic Kidney Disease Family History: States: Unknown Family Hx - Social History Hx Tobacco Use: No Hx Alcohol Use: No Hx Substance Use: No - Immunization History Hx Tetanus Toxoid Vaccination: No Hx Influenza Vaccination: No Hx Pneumococcal Vaccination: No Review Of Systems Cardiovascular: Negative for: Chest Pain, Palpitations Respiratory: Negative for: Cough, Shortness of Breath Gastrointestinal: Negative for: Nausea, Vomiting Neurological: Negative for: Weakness, Numbness, Headache, Dizziness Physical Exam - Physical Exam Appears: Non-toxic, No Acute Distress Skin: Normal Color, Warm, Dry Head: Atraumatic, Normacephalic Eye(s): bilateral: Normal Inspection Oral Mucosa: Moist Neck: Normal, Supple Chest: Symmetrical, No Tenderness Cardiovascular: Rhythm Regular Respiratory: Normal Breath Sounds, No Rales, No Rhonchi, No Wheezing Gastrointestinal/Abdominal: Soft, No Tenderness Extremity: Normal ROM (x4) Neurological/Psych: Oriented x3, Normal Speech Gait: Steady ED Course And Treatment O2 Sat by Pulse Oximetry: 96 (Room air) Pulse Ox Interpretation: Normal Medical Decision Making Medical Decision Making: Blood pressure in ED is within normal limits. Patient has no physical complaints. 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 - Scribe Statement The provider has reviewed the documentation as recorded by the Scribe Kiko Mcintosh All medical record entries made by the Scribe were at my direction and personally dictated by me. I have reviewed the chart and agree that the record accurately reflects my personal performance of the history, physical exam, medical decision making, and the department course for this patient. I have also personally directed, reviewed, and agree with the discharge instructions and disposition.
[2018-05-01 23:55] VITALS: RESP 20
== END 2018-05-01 23:57 | disposition home or self-care (01) ==
LOC: C.ER 23:06
DX: Z04.8 Encounter for examination and observation for other specified reasons (principal)

== ENCOUNTER 2018-06-03 01:22 | Emergency (ER) | payer BC ==
[2018-06-03 01:22] VITALS: BMI 34.5
[2018-06-03 01:38] VITALS: BP 120/78; PULSE 74; RESP 16; TEMP 98.5; O2SAT 97
[2018-06-03] MEDS ORDERED: Alum-Mag Hydrox-Simethicone Susp (30 mL) PO STA (01:47)
--- NOTE | 2018-06-03 01:51 | C.PDOC ---
History Of Present Illness 43-year-old male presents to the ED with complaints of epigastric pain for 3 days. Patient also reports feeling gassy and constipated. States he has daily bowel movements but must strain to go. Otherwise he denies any nausea, vomiting , diarrhea, fever, chills, dysuria, or incontinence. No recent travel. No modification of pain after meals. Patient has had a normal appetite and is eating well. Of note, patient has an appointment to see his primary doctor tomorrow. Time Seen by Provider: 06/03/18 01:37 Chief Complaint (Nursing): Abdominal Pain History Per: Patient History/Exam Limitations: no limitations Onset/Duration Of Symptoms: Days Current Symptoms Are (Timing): Still Present Severity: Mild Pain Scale Rating Of: 4 Location Of Pain/Discomfort: Epigastric Quality Of Discomfort: Cramping Associated Symptoms: Constipation Exacerbating Factors: None Past Medical History Reviewed: Historical Data, Nursing Documentation, Vital Signs Vital Signs: Last Vital Signs Temp 98.5 F 06/03/18 01:35 Pulse 74 06/03/18 01:35 Resp 16 06/03/18 01:35 BP 120/78 06/03/18 01:35 Pulse Ox 97 06/03/18 02:14 - Medical History PMH: Anemia (received blood transfusion 2 yrs ago), Anxiety, Back Problems, Gall Bladder Disease, Kidney Stones, Malignancy (lymphoma), Chronic Kidney Disease Family History: States: Unknown Family Hx - Social History Hx Tobacco Use: No Hx Alcohol Use: No Hx Substance Use: No - Immunization History Hx Tetanus Toxoid Vaccination: No Hx Influenza Vaccination: No Hx Pneumococcal Vaccination: No Review Of Systems Except As Marked, All Systems Reviewed And Found Negative. Constitutional: Negative for: Fever, Chills Gastrointestinal: Positive for: Abdominal Pain, Constipation, Other (Bloating/ gas). Negative for: Nausea, Vomiting, Diarrhea Genitourinary: Negative for: Dysuria, Frequency, Incontinence Physical Exam - Physical Exam Appears: Well, Non-toxic, No Acute Distress Skin: Warm, Dry, No Rash Head: Atraumatic, Normacephalic Eye(s): bilateral: Normal Inspection Oral Mucosa: Moist Neck: Normal ROM Chest: Symmetrical Cardiovascular: Rhythm Regular, No Murmur Respiratory: Normal Breath Sounds, No Rales, No Rhonchi, No Wheezing Gastrointestinal/Abdominal: Soft, Tenderness (minimal tenderness to the epigastrium), No Guarding, No Rebound Back: Normal Inspection Extremity: Bilateral: Atraumatic, Normal ROM Neurological/Psych: Oriented x3, Normal Speech ED Course And Treatment O2 Sat by Pulse Oximetry: 97 (RA) Pulse Ox Interpretation: Normal Medical Decision Making Medical Decision Making: Impression: 43-year-old with epigastric pain; Patient states he has appointment with his primary doctor tomorrow and does not want to get needle twice, thus does not want any bloodwork. He just asks for pain medicine. Patient has no fever and stable vital signs. Abdomen soft, not rigid no guarding or rebound to suggest surgical pathology. Plan: --Pepcid 20 mg PO --Maalox Plus 30 ml PO Disposition Counseled Patient/Family Regarding: Diagnosis, Need For Followup - Disposition Referrals: Ki Villasenor [Staff Provider] - Disposition: HOME/ ROUTINE Disposition Time: 02:11 Condition: GOOD Additional Instructions: Rx sent to [facility] pharmacy take medication daily to help with pain and stool softer to help with constipation Follow up with your primary medical doctor or clinic in 2-5 days for further evaluation. Follow up with GI if symptoms persist Prescriptions: Docusate [Colace] 100 mg PO TID PRN #30 cap PRN Reason: Constipation Ranitidine HCl 150 mg PO DAILY #30 tablet Instructions: Gastritis (DC) Forms: [facility] (Luxembourgish) - POA Present On Arrival: None - Clinical Impression Clinical Impression: Epigastric abdominal pain - PA / WOOD BUFFER / Resident Statement MD/DO has reviewed & agrees with the documentation as recorded. - Scribe Statement The provider has reviewed the documentation as recorded by the Scribe (Leana Varela) All medical record entries made by the Scribe were at my direction and personally dictated by me. I have reviewed the chart and agree that the record accurately reflects my personal performance of the history, physical exam, medical decision making, and the department course for this patient. I have also personally directed, reviewed, and agree with the discharge instructions and disposition.
[2018-06-03] MEDS ORDERED: Aluminum Hydroxide/Magnesium Hydroxide Susp (30 mL) ONE (01:53)
[2018-06-03] MEDS ORDERED: Alum-Mag Hydrox-Simethicone Susp (30 mL) ONE (01:54)
== END 2018-06-03 02:22 | disposition home or self-care (01) ==
LOC: C.ER 01:22
DX: R10.13 Epigastric pain (principal)

== ENCOUNTER 2018-06-08 11:21 | Emergency (ER) | payer BC ==
[2018-06-08 11:21] VITALS: BMI 34.5
[2018-06-08 11:46] VITALS: BP 106/51; RESP 13; TEMP 98.4; O2SAT 97
[2018-06-08 11:58] VITALS: PULSE 80
--- NOTE | 2018-06-08 12:19 | C.PDOC ---
History Of Present Illness 43 y/o male presents to ED c/o digitally and positionally reproducible left lateral upper chest wall pain since yesterday. Pt had had multiple prior visits for similar chest pain with normal work up findings. Denies shortness of breath , cough, sub-sternal chest pressure, or palpitation. Time Seen by Provider: 06/08/18 12:08 Chief Complaint (Nursing): Chest Pain History Per: Patient History/Exam Limitations: no limitations Past Medical History Reviewed: Historical Data, Nursing Documentation, Vital Signs Vital Signs: Last Vital Signs Temp 98.4 F 06/08/18 11:44 Pulse 80 06/08/18 11:49 Resp 13 06/08/18 11:44 BP 106/51 L 06/08/18 11:49 Pulse Ox 97 06/08/18 13:12 - Medical History PMH: Anemia (hx blood transfusions), Anxiety, Back Problems, Gall Bladder Disease, Kidney Stones, Malignancy (lymphoma), Chronic Kidney Disease Family History: States: Unknown Family Hx - Social History Hx Tobacco Use: No Hx Alcohol Use: No Hx Substance Use: No - Immunization History Hx Tetanus Toxoid Vaccination: No Hx Influenza Vaccination: No Hx Pneumococcal Vaccination: No Review Of Systems Except As Marked, All Systems Reviewed And Found Negative. Constitutional: Negative for: Fever, Chills Cardiovascular: Positive for: Chest Pain. Negative for: Palpitations, Edema, Light Headedness Respiratory: Negative for: Cough, Shortness of Breath Physical Exam - Physical Exam Appears: Non-toxic, No Acute Distress, Other (obese) Skin: Normal Color, Warm, Dry, No Rash Head: Atraumatic, Normacephalic Eye(s): bilateral: Abnormal Pupil (pinpoint) Oral Mucosa: Moist Neck: Supple Chest: Symmetrical, No Deformity, Tenderness (digitally and positionally reproducbile tenderness to left lateral upper chest area) Cardiovascular: Rhythm Regular, No Murmur Respiratory: Normal Breath Sounds, No Rales, No Rhonchi, No Wheezing Gastrointestinal/Abdominal: Soft, No Tenderness Back: Normal Inspection Extremity: Normal ROM, No Pedal Edema Neurological/Psych: Oriented x3, Normal Speech ED Course And Treatment O2 Sat by Pulse Oximetry: 97 Medical Decision Making Medical Decision Making: Costochondritis digitally and positionally reproducable L lateral pectoralis muscle area mild tenderness normal ekg extensive untreated psych hx- adjustment disorder recent stressor- girlfriend dx breast CA- current narcotics use for ? Disposition Doctor Will See Patient In The: Office Counseled Patient/Family Regarding: Studies Performed, Diagnosis - Disposition Referrals: [facility] [Outside] [facility] [Outside] [facility] [Outside] [facility] [Outside] Ki Villasenor [Staff Provider] - Disposition: HOME/ ROUTINE Disposition Time: 12:18 Condition: GOOD Additional Instructions: normal EKG digitally reproducable pain of the L chest wall is NOT cardiac. follow-up with Dr. Villasenor Anxiety/Adjustment Disorder Follow-up with the [facility] or the [facility] for further diagnosis and treatment of your anxiety issues. Instructions: Costochondritis, Anxiety, Adult (DC) Forms: [employer] (Malagasy) - Clinical Impression Clinical Impression: Chest wall discomfort - Scribe Statement The provider has reviewed the documentation as recorded by the Scribe KP All medical record entries made by the Scribe were at my direction and personally dictated by me. I have reviewed the chart and agree that the record accurately reflects my personal performance of the history, physical exam, medical decision making, and the department course for this patient. I have also personally directed, reviewed, and agree with the discharge instructions and disposition.
--- NOTE | 2018-06-11 14:53 | CARD ---
APPROVED REPORT Date of service: 06/08/2018 EKG Measurement Heart [id number] <Conclusion> Normal sinus rhythm Incomplete right bundle branch block Borderline ECG
== END 2018-06-08 12:37 | disposition home or self-care (01) ==
LOC: C.ER 11:21
DX: R07.89 Other chest pain (principal)

== ENCOUNTER 2018-06-13 23:57 | Emergency (ER) | payer BC ==
[2018-06-13 23:57] VITALS: BMI 34.5
[2018-06-14 00:10] VITALS: BP 135/77; PULSE 72; RESP 20; TEMP 98; O2SAT 97
--- NOTE | 2018-06-14 00:28 | C.PDOC ---
History Of Present Illness 43 year old male comes to ed for evaluation of lump on back and throat pain. pt currently taking amoxicillin for dental infection, has follow up appt on Sunday with dentist. no fever or chills. Time Seen by Provider: 06/14/18 00:14 Chief Complaint (Nursing): Medical Clearance History Per: Patient History/Exam Limitations: no limitations Onset/Duration Of Symptoms: Days Current Symptoms Are (Timing): Still Present Recent travel outside of the [place]: No Additional History Per: Patient Past Medical History Reviewed: Historical Data, Nursing Documentation, Vital Signs Vital Signs: Last Vital Signs Temp 98.0 F 06/14/18 00:07 Pulse 72 06/14/18 00:07 Resp 20 06/14/18 01:01 BP 135/77 06/14/18 00:07 Pulse Ox 97 06/14/18 02:09 - Medical History PMH: Anemia (hx blood transfusions), Anxiety, Back Problems, Gall Bladder Disease, Kidney Stones, Malignancy (lymphoma), Chronic Kidney Disease Surgical History: No Surg Hx Family History: States: Unknown Family Hx - Social History Hx Tobacco Use: No Hx Alcohol Use: No Hx Substance Use: No - Immunization History Hx Tetanus Toxoid Vaccination: No Hx Influenza Vaccination: No Hx Pneumococcal Vaccination: No Review Of Systems Constitutional: Negative for: Fever, Chills ENT: Positive for: Throat Pain Cardiovascular: Negative for: Chest Pain, Palpitations Respiratory: Negative for: Cough, Shortness of Breath Musculoskeletal: Positive for: Back Pain Skin: Negative for: Rash Neurological: Negative for: Weakness, Numbness Physical Exam - Physical Exam Appears: Non-toxic, No Acute Distress Skin: Normal Color, Warm, Dry Head: Atraumatic, Normacephalic Eye(s): bilateral: Normal Inspection Oral Mucosa: Moist Teeth: Edentulous (mostly) Gingiva: Erythema, No Swelling Throat: Normal, No Erythema, No Exudate Neck: Normal ROM, Supple, Other (submandibular node tender left side) Back: Other (2 cm firm midly elevated area with black punctum in center with no erythema or warmth, consistent with epidermal cyst to right upper back) Extremity: Normal ROM, No Tenderness, No Swelling Neurological/Psych: Oriented x3, Normal Speech, Normal Cognition Gait: Steady ED Course And Treatment O2 Sat by Pulse Oximetry: 97 (ON RA) Pulse Ox Interpretation: Normal Medical Decision Making Medical Decision Making: pt with epidermoid cyst on back, sore throat, no erythema, currently taking amox for dental infection. d/c home, f/u derm Disposition Counseled Patient/Family Regarding: Diagnosis, Need For Followup - Disposition Referrals: Ki Villasenor [Staff Provider] - Disposition: HOME/ ROUTINE Disposition Time: 00:55 Condition: GOOD Additional Instructions: Please follow up with Dr Villasenor in a few days; recommend you get a referral to a garage door installer for an annual skin check and evaluation of epidermal cyst on back. Follow up with dentist on Sunday as scheduled. Continue taking Amoxicillin as prescribed. 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 - Scribe Statement The provider has reviewed the documentation as recorded by the Scribe Asa Daniels All medical record entries made by the Scribe were at my direction and personally dictated by me. I have reviewed the chart and agree that the record accurately reflects my personal performance of the history, physical exam, medical decision making, and the department course for this patient. I have also personally directed, reviewed, and agree with the discharge instructions and disposition.
== END 2018-06-14 01:01 | disposition home or self-care (01) ==
LOC: C.ER 23:57
DX: L72.0 Epidermal cyst (principal)

== ENCOUNTER 2018-06-30 23:29 | Emergency (ER) | payer BC ==
[2018-06-30 23:29] VITALS: BMI 34.5
[2018-06-30 23:35] VITALS: BP 135/84; PULSE 77; RESP 16; TEMP 98.3; O2SAT 97
--- NOTE | 2018-07-01 03:55 | C.PDOC ---
History Of Present Illness Pt c/o of painb to left upper back at the site of a cyst. Pt was seen in ED on for similar c/o and at that time was already on amoxicilin for dental infection and was wdvised to continue same management for cyst. Pt states pain has decreased but is intermittent and is requesting evaluation. Pt states pain also radiates to left lower back. Denies URI or UTI sx, SOB, chest pain, incontinence of bowel or bladder. Denies fever or drainage from area Time Seen by Provider: 06/30/18 23:43 Chief Complaint (Nursing): Abnormal Skin Integrity History Per: Patient History/Exam Limitations: no limitations Location Of Injury: Left: Back (upper) Pain Scale Rating Of: 5 Past Medical History Vital Signs: Last Vital Signs Temp 98.3 F 06/30/18 23:33 Pulse 77 06/30/18 23:33 Resp 16 06/30/18 23:33 BP 135/84 06/30/18 23:33 Pulse Ox 97 06/30/18 23:33 - Medical History PMH: Anemia (hx blood transfusions), Anxiety, Back Problems, Gall Bladder Disease, Kidney Stones, Malignancy (lymphoma), Chronic Kidney Disease Family History: States: Unknown Family Hx - Social History Hx Tobacco Use: No Hx Alcohol Use: No Hx Substance Use: No - Immunization History Hx Tetanus Toxoid Vaccination: No Hx Influenza Vaccination: No Hx Pneumococcal Vaccination: No Review Of Systems Constitutional: Negative for: Fever, Chills Cardiovascular: Negative for: Chest Pain Respiratory: Negative for: Cough, Shortness of Breath Genitourinary: Negative for: Dysuria, Incontinence, Hematuria Musculoskeletal: Positive for: Back Pain (left upper) Skin: Positive for: Other (cyst left back) Neurological: Negative for: Weakness, Numbness Physical Exam - Physical Exam Appears: Well, Non-toxic Skin: Normal Color Eye(s): bilateral: Normal Inspection, PERRL, EOMI Neck: Normal Respiratory: Normal Breath Sounds Gastrointestinal/Abdominal: Normal Exam Back: Normal Inspection, No CVA Tenderness, No Vertebral Tenderness, No Paraspinal Tenderness, Other (smallarea of non raised indurated skin 0.5x 1 cm to left upper back with dark punctate center - no open wound, no swelling,non fluctuant or tender, no acute abscess, no erythema or warmth, no CVA tenderness) Extremity: Normal ROM Extremity: Bilateral: Atraumatic Neurological/Psych: Oriented x3, Normal Motor, Normal Sensation Gait: Steady ED Course And Treatment O2 Sat by Pulse Oximetry: 97 Progress Note: PE unremarkable: no acute mass, infected cyst or abscess. Pt will follow up with PMD and advise tylenol or advil as needed Disposition - Disposition Disposition: HOME/ ROUTINE Disposition Time: 23:00 Condition: STABLE Additional Instructions: PLEASE FOLLOW UP WITH PMD TYLENOL OR ADVIL FOR PAIN RETURN TO ER IF WORSE Instructions: Upper Back Pain (DC) Forms: [facility] (Austrian) - Clinical Impression Clinical Impression: Back pain
== END 2018-07-01 00:27 | disposition home or self-care (01) ==
LOC: C.ER 23:29
DX: M54.9 Dorsalgia, unspecified (principal)

== ENCOUNTER 2018-07-17 18:45 | Emergency (ER) | payer BC ==
[2018-07-17 18:45] VITALS: BMI 34.5
[2018-07-17 19:26] VITALS: O2SAT 98
[2018-07-17] MEDS ORDERED: Sodium Chloride 0.9% 1,000 ML IV ONE (20:23)
--- NOTE | 2018-07-17 20:23 | C.PDOC ---
History Of Present Illness The patient presents to the ED for evaluation of mid-epigastric abdominal pain which began today. Patient denies fever, chills, nausea and vomiting at this time. Time Seen by Provider: 07/17/18 20:22 Chief Complaint (Nursing): Abdominal Pain History Per: Patient History/Exam Limitations: no limitations Onset/Duration Of Symptoms: Hrs Current Symptoms Are (Timing): Still Present Severity: Mild Pain Scale Rating Of: 2 Location Of Pain/Discomfort: Epigastric (mid) Radiation Of Pain To:: None Quality Of Discomfort: "Pain" Associated Symptoms: denies: Fever, Chills, Nausea, Vomiting Exacerbating Factors: None Alleviating Factors: None Last Bowel Movement: Today Recent travel outside of the [place]: No Additional History Per: Patient Past Medical History Reviewed: Historical Data, Nursing Documentation, Vital Signs Vital Signs: Last Vital Signs Temp 99 F 07/17/18 19:22 Pulse 73 07/17/18 19:22 Resp 20 07/17/18 19:22 BP 143/85 07/17/18 19:22 Pulse Ox 98 07/17/18 20:39 - Medical History PMH: Anemia (hx blood transfusions), Anxiety, Back Problems, Gall Bladder Disease, Kidney Stones, Malignancy (lymphoma), Chronic Kidney Disease Surgical History: No Surg Hx Family History: States: Unknown Family Hx - Social History Hx Tobacco Use: No Hx Alcohol Use: No Hx Substance Use: No - Immunization History Hx Tetanus Toxoid Vaccination: No Hx Influenza Vaccination: No Hx Pneumococcal Vaccination: No Review Of Systems Constitutional: Negative for: Fever, Chills Cardiovascular: Negative for: Chest Pain, Palpitations Respiratory: Negative for: Cough, Shortness of Breath Gastrointestinal: Positive for: Abdominal Pain (mid-epigastric ). Negative for : Nausea, Vomiting, Diarrhea, Constipation Genitourinary: Negative for: Dysuria, Frequency, Hematuria Musculoskeletal: Negative for: Back Pain Skin: Negative for: Rash, Jaundice, Bruising Neurological: Negative for: Weakness, Numbness Physical Exam - Physical Exam Appears: Non-toxic, No Acute Distress Skin: Warm, Dry Head: Normacephalic Eye(s): bilateral: Normal Inspection Oral Mucosa: Moist Neck: Supple Chest: Symmetrical, No Deformity, No Tenderness Cardiovascular: Rhythm Regular Respiratory: No Rales, No Rhonchi, No Wheezing Gastrointestinal/Abdominal: Soft, Tenderness (mild, mid-epigastric ), No Guarding, No Rebound Extremity: Normal ROM, Capillary Refill (less than 2 seconds ) Neurological/Psych: Oriented x3 Gait: Steady ED Course And Treatment - Laboratory Results Result Diagrams: 07/17/18 20:39 07/17/18 20:39 O2 Sat by Pulse Oximetry: 98 (on RA) Pulse Ox Interpretation: Normal Progress Note: Bloodwork and urinalysis ordered and reviewed. Protonix IVP, Zofran IVP and IV Fluids given. Reevaluation Time: 23:00 Reassessment Condition: Improved Medical Decision Making Medical Decision Making: Upon provider reevaluation patient is feeling better, is medically stable, and requires no further treatment in the ED at this time. Patient will be discharged home . Counseling was provided and all questions were answered regarding diagnosis and need for follow up with DR VILLASENOR. There is agreement to discharge plan. Return if symptoms persist or worsen. Disposition Counseled Patient/Family Regarding: Studies Performed, Diagnosis, Need For Followup - Disposition Referrals: Ki Villasenor [Staff Provider] - Disposition: HOME/ ROUTINE Disposition Time: 20:22 Condition: FAIR Additional Instructions: Please return if symptoms recur. Do follow up with dr villasenor re: ct findings Prescriptions: Pantoprazole Sodium [Protonix] 40 mg PO DAILY #15 ect Instructions: Acute Abdomen (Belly Pain), Adult (DC), Colic (DC), Gallstones ( DC) Forms: [employer] (Georgian) - Clinical Impression Clinical Impression: Abdominal colic, Gallstones - Scribe Statement The provider has reviewed the documentation as recorded by the Scribe (Aileen Ramírez) Provider Attestation: All medical record entries made by the Scribe were at my direction and personally dictated by me. I have reviewed the chart and agree that the record accurately reflects my personal performance of the history, physical exam, medical decision making, and the department course for this patient. I have also personally directed, reviewed, and agree with the discharge instructions and disposition.
[2018-07-17] MEDS ORDERED: Sodium Chloride 0.9% 1,000 ML ONE (20:43)
[2018-07-17 20:46] LABS: BASO % 0.2 % (0.0-2.0); EOS # 0.1 K/uL (0.0-0.7); EOS % 1.3 % (0.0-4.0); HEMOGLOBIN 14.4 g/dL (12.0-18.0); LYMPH # 1.8 K/uL (1.0-4.3); LYMPH % 21.9 % (20.0-40.0); MEAN CELL VOLUME 83.3 fL (80.0-94.0); MEAN CORPUSCULAR HGB CONC 33.6 g/dL (33.0-37.0); MEAN PLATELET VOLUME 8.4 fL (7.2-11.7); MONO # 0.5 K/uL (0.0-0.8); NEUT # 5.7 K/uL (1.8-7.0); NEUT % 70.6 % (50.0-75.0); NRBC % 0.1 % (0.0-2.0); RBC 5.15 Mil/uL (4.40-5.90); RED CELL DISTRIBUTION WIDTH 14.5 % (11.5-14.5); WHITE BLOOD COUNT 8.1 K/uL (4.8-10.8)
[2018-07-17 20:51] LABS: URINE BACTERIA RARE (<OCC); URINE BILIRUBIN NEGATIVE (NEGATIVE); URINE BLOOD NEGATIVE (NEGATIVE); URINE CLARITY Clear (Clear); URINE COLOR Yellow (YELLOW); URINE GLUCOSE (UA) NORMAL (Normal); URINE LEUKOCYTE ESTERASE NEG Leu/uL (Negative); URINE PROTEIN NEGATIVE (NEGATIVE)
[2018-07-17 20:53] LABS: INR 1.1; PROTHROMBIN TIME 11.8 SECONDS (9.7-12.2)
[2018-07-17 21:07] LABS: ALB/GLOB RATIO 1.6 (1.0-2.1); ALBUMIN 4.4 g/dL (3.5-5.0); ALT/SGPT 51 U/L (21-72); AST/SGOT 33 U/L (17-59); BLOOD UREA NITROGEN 13 mg/dL (9-20); CALCIUM 9.3 mg/dl (8.6-10.4); GFR NON-AFRICAN AMERICAN > 60; LIPASE 31 U/L (23-300)
[2018-07-17 23:05] VITALS: BP 128/84; PULSE 67; RESP 14; TEMP 97.6
--- NOTE | 2018-07-18 10:10 | CT ---
Date of service: 07/17/2018 PROCEDURE: CT Abdomen and Pelvis without intravenous contrast HISTORY: mid epigastric pain COMPARISON: CT abdomen and pelvis dated 02/07/2016 TECHNIQUE: Multiple contiguous axial images were performed through the abdomen and pelvis without the use of intravenous contrast. Subsequently, sagittal and coronal reformatted images were obtained. Radiation dose: Total exam DLP = 1127 mGy-cm. This CT exam was performed using one or more of the following dose reduction techniques: Automated exposure control, adjustment of the mA and/or kV according to patient size, and/or use of iterative reconstruction technique. FINDINGS: LOWER THORAX: Unremarkable. LIVER: Unremarkable. No gross lesion or ductal dilatation. GALLBLADDER AND BILE DUCTS: Cholelithiasis. PANCREAS: Unremarkable. No gross lesion or ductal dilatation. SPLEEN: Unremarkable. ADRENALS: Unremarkable. No mass. KIDNEYS AND URETERS: 9 millimeter exophytic low-attenuation lesion off the midpole of the right kidney demonstrating a Hounsfield attenuation of 9, too small to adequately characterize. Punctate nonobstructive calculus the midpole of the right kidney. Punctate nonobstructing calculus in the midpole of the left kidney. VASCULATURE: Unremarkable. No aortic aneurysm. BOWEL: Unremarkable. No obstruction. No gross mural thickening. APPENDIX: No findings to suggest acute appendicitis. PERITONEUM: Inflammation around the mesenteric root with associated prominent nodes. Not significantly changed. LYMPH NODES: Enlarged left external iliac and inguinal nodes, new since the prior study. For example, left inguinal nodes measure up to 1.8 centimeters and left iliac chain adenopathy is prominent measuring up to 5.5 centimeters. New lymph nodes or nodules in the subcutaneous fat of the left buttock. BLADDER: Question punctate calcific foci noted within the posterior inferior midline bladder. Clinical correlation. REPRODUCTIVE: Heterogeneous and prominent prostate with calcification. BONES: Degenerative changes in the spine. OTHER FINDINGS: None. IMPRESSION: Prominently enlarged left external iliac and inguinal nodes, new since the prior study. Clinical correlation. Findings are indeterminate for malignancy, particularly lymphoma. Correlation with PET-CT may be helpful for further evaluation if clinically indicated. Correlation with any evidence of left lower extremity infection may be helpful. New nodes or nodules in the subcutaneous fat of the left buttock. Inflammation of the mesenteric root which is unchanged. 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 In some patients this may be a chronic finding. Lymphoma could also have this appearance. Continued interval follow-up is recommended. Cholelithiasis. Additional findings as above. These findings were preliminarily reported at 10:44 p.m. on 07/17/[address] Valentin Hurt from [employer].
== END 2018-07-17 23:21 | disposition home or self-care (01) ==
LOC: C.ER 18:45
DX: K80.20 Calculus of gallbladder without cholecystitis without obstruction (principal); R10.84 Generalized abdominal pain
CPT/HCPCS: 74176; 80053; 81001; 83690; 85025; 85610; 85730; 96361; 96374; 96375; 99285; C9113; J2405; J7030

== ENCOUNTER 2018-09-13 08:02 | Emergency (ER) | payer BC ==
[2018-09-13 08:10] VITALS: BMI 34.2
--- NOTE | 2018-09-13 08:28 | C.PDOC ---
History Of Present Illness 43 y/o male with history of Anxiety presents to ED with c/o sob while walking to work [employer]. Patient states he developed chest pain and became anxious with associated sob. Patient states he had symptoms previously, seen by PMD and given Ativan. States his was diagnosed with breast cancer and ever since then he has been getting these episodeds. Patient denies headache, fever, chills, nausea, vomiting or any other complaints at this time. Time Seen by Provider: 09/13/18 08:04 Chief Complaint (Nursing): Chest Pain History Per: Patient History/Exam Limitations: no limitations Onset/Duration Of Symptoms: Days Current Symptoms Are (Timing): Still Present Past Medical History Reviewed: Historical Data, Nursing Documentation, Vital Signs Vital Signs: Last Vital Signs Temp 97.5 F L 09/13/18 08:09 Pulse 96 H 09/13/18 08:09 Resp 26 H 09/13/18 08:09 BP 146/66 09/13/18 08:09 Pulse Ox 100 09/13/18 08:09 - Medical History PMH: Anemia (hx blood transfusions), Anxiety, Back Problems, Gall Bladder Disease, Kidney Stones, Malignancy (lymphoma), Chronic Kidney Disease Surgical History: No Surg Hx Family History: States: No Known Family Hx - Social History Hx Tobacco Use: No Hx Alcohol Use: Yes Hx Substance Use: No - Immunization History Hx Tetanus Toxoid Vaccination: No Hx Influenza Vaccination: No Hx Pneumococcal Vaccination: No Review Of Systems Constitutional: Negative for: Fever, Chills Cardiovascular: Positive for: Chest Pain Respiratory: Positive for: Shortness of Breath Gastrointestinal: Negative for: Nausea, Vomiting Skin: Negative for: Rash Psych: Positive for: Anxiety Physical Exam - Physical Exam Appears: Non-toxic, Other (Anxious appearing) Skin: Warm, Dry, No Rash Head: Atraumatic, Normacephalic Eye(s): bilateral: Normal Inspection Oral Mucosa: Moist Neck: Normal ROM, Supple Cardiovascular: Rhythm Regular Respiratory: Normal Breath Sounds, No Rales, No Rhonchi, No Wheezing Gastrointestinal/Abdominal: Soft, No Tenderness, No Guarding, No Rebound Extremity: Normal ROM, Capillary Refill (<2 seconds) Neurological/Psych: Oriented x3, Normal Speech, Normal Cognition ED Course And Treatment ECG: Interpreted By Me, Viewed By Me ECG Rhythm: Sinus Rhythm Rate From EC (BPM) O2 Sat by Pulse Oximetry: 100 (RA) Pulse Ox Interpretation: Normal Disposition Counseled Patient/Family Regarding: Diagnosis - Disposition Disposition: HOME/ ROUTINE Disposition Time: 08:42 Condition: STABLE Additional Instructions: follow up with your doctor Instructions: Anxiety, Adult (DC) Forms: [facility] (Turkmen), General Discharge Instructions, Work Excuse - POA Present On Arrival: None - Clinical Impression Clinical Impression: Anxiety - Scribe Statement The provider has reviewed the documentation as recorded by the Treibroma Haskins All medical record entries made by the Treibroma were at my direction and personally dictated by me. I have reviewed the chart and agree that the record accurately reflects my personal performance of the history, physical exam, medical decision making, and the department course for this patient. I have also personally directed, reviewed, and agree with the discharge instructions and disposition.
[2018-09-13 08:56] VITALS: BP 107/62; PULSE 66; RESP 18; TEMP 98.4; O2SAT 98
--- NOTE | 2018-09-16 12:25 | CARD ---
APPROVED REPORT Date of service: 09/13/2018 EKG Measurement Heart [id number] [id number] <Conclusion> Normal sinus rhythm Normal ECG
== END 2018-09-13 08:56 | disposition home or self-care (01) ==
LOC: C.ER 08:02
DX: F41.9 Anxiety disorder, unspecified (principal)

== ENCOUNTER 2018-09-18 00:10 | Emergency (ER) | payer BC ==
[2018-09-18 00:19] VITALS: BMI 31.1
[2018-09-18] MEDS ORDERED: Sodium Chloride 0.9% 1,000 ML IV ONE (00:33)
--- NOTE | 2018-09-18 00:33 | C.PDOC ---
History Of Present Illness 43 year old male presents to the ED c/o abdominal pain. Patient states he saw his PMD and prescribed him protonix with no relief. Patient was seen here in July for similar complaints. Patient still smokes. Patient denies fever, chills, nausea, vomit, diarrhea, rash, dysuria, hematuria, back pain. Time Seen by Provider: 09/18/18 00:32 Chief Complaint (Nursing): Abdominal Pain History Per: Patient History/Exam Limitations: no limitations Onset/Duration Of Symptoms: Days Current Symptoms Are (Timing): Still Present Location Of Pain/Discomfort: Diffuse Radiation Of Pain To:: None Quality Of Discomfort: Dull, Aching, "Pain" Associated Symptoms: denies: Nausea, Vomiting, Diarrhea, Urinary Symptoms Alleviating Factors: None Recent travel outside of the [place]: No Additional History Per: Patient Past Medical History Reviewed: Historical Data, Nursing Documentation, Vital Signs Vital Signs: Last Vital Signs Temp 98.3 F 09/18/18 00:25 Pulse 73 09/18/18 00:25 Resp 22 09/18/18 00:25 BP 115/71 09/18/18 00:25 Pulse Ox 97 09/18/18 00:25 - Medical History PMH: Anemia (hx blood transfusions), Anxiety, Back Problems, Gall Bladder Dise ase, Kidney Stones, Malignancy (lymphoma), Chronic Kidney Disease Surgical History: No Surg Hx Family History: States: No Known Family Hx - Social History Hx Tobacco Use: No Hx Alcohol Use: Yes Hx Substance Use: No - Immunization History Hx Tetanus Toxoid Vaccination: No Hx Influenza Vaccination: No Hx Pneumococcal Vaccination: No Review Of Systems Constitutional: Negative for: Fever, Chills Cardiovascular: Negative for: Chest Pain Respiratory: Negative for: Cough, Shortness of Breath Gastrointestinal: Positive for: Abdominal Pain. Negative for: Nausea, Vomiting, Diarrhea Genitourinary: Negative for: Dysuria, Hematuria Musculoskeletal: Negative for: Back Pain Physical Exam - Physical Exam Appears: Non-toxic, No Acute Distress Skin: Warm, Dry Head: Normacephalic Eye(s): bilateral: Normal Inspection Oral Mucosa: Moist Neck: Supple Chest: Symmetrical Cardiovascular: Rhythm Regular Respiratory: No Rales, No Rhonchi, No Wheezing Gastrointestinal/Abdominal: Soft, Tenderness (mid epigastric), No Guarding, No Rebound Extremity: Bilateral: Atraumatic, Normal Color And Temperature, Normal ROM Neurological/Psych: Oriented x3, Normal Speech, Normal Cognition Gait: Steady ED Course And Treatment - Laboratory Results Result Diagrams: 09/18/18 01:02 09/18/18 01:02 ECG: Interpreted By Me, Viewed By Me ECG Rhythm: Sinus Rhythm (62), R BBB, Nonspecific Changes O2 Sat by Pulse Oximetry: 97 (ON RA) Pulse Ox Interpretation: Normal - CT Scan/US US abdomen Other Rad Studies (CT/US): Read By Radiologist, Radiology Report Reviewed CT/US Interpretation: CLINICAL HISTORY: Pain. TECHNIQUE: Realtime sonographic images were obtained in multiple projections. COMMENTS: The liver is demonst rates increased echogenicity compatible with fatty infiltration. No discrete. hepatic mass is seen. There is no intra or extrahepatic biliary ductal dilatation. CBD measures 5 mm. The gallbladder contains 2.3 cm calculus. The gallbladder wall is upper limits, 3 mm. There. is no pericholecystic fluid. There is no abdominal ascites. The right kidney measures 13 cm, free of hydronephrosis, cysts or masses. 4 mm mid pole calculus is seen. IMPRESSION: Fatty liver. Gallstone with borderline thickened wall, chronic cholecystitis is not excluded. 4 mm mid pole right renal calculus. Thank you for your kind referral of this patient. . Electronically signed on Sep 18, 2018 3:31:26 AM EST by: Colby Brody M.D., SHERYL Certified By [facility]. Fellowship Trained MRI and CT Specialist Progress Note: Plan: - EKG. - Labs. - Protonix 40 mg IVP. - IV fluids. - Toradol 30 mg IVP. - UA Reevaluation Time: 04:08 Reassessment Condition: Improved Medical Decision Making Medical Decision Making: Upon provider reevaluation patient is feeling better, is medically stable, and requires no further treatment in the ED at this time. Patient will be discharged home with . Counseling was provided and all questions were answered regarding diagnosis and need for follow up with dr masters. There is agreement to discharge plan. Return if symptoms persist or worsen. Disposition Counseled Patient/Family Regarding: Studies Performed, Diagnosis, Need For Followup - Disposition Referrals: Ki Villasenor [Staff Provider] - Disposition: HOME/ ROUTINE Disposition Time: 00:32 Condition: FAIR Additional Instructions: Please return if symptoms recur Instructions: Acute Abdomen (Belly Pain), Adult (DC), Gallstones (DC) Forms: [employer] (Belarusian) - Clinical Impression Clinical Impression: Abdominal pain, Gallstones - Scribe Statement The provider has reviewed the documentation as recorded by the Scribe Asa Daniels All medical record entries made by the Scribe were at my direction and personally dictated by me. I have reviewed the chart and agree that the record accurately reflects my personal performance of the history, physical exam, medical decision making, and the department course for this patient. I have also personally directed, reviewed, and agree with the discharge instructions and disposition.
[2018-09-18] MEDS ORDERED: Sodium Chloride 0.9% 1,000 ML ONE (01:05)
[2018-09-18 01:11] LABS: BASO % 0.6 % (0.0-2.0); EOS # 0.2 K/uL (0.0-0.7); EOS % 1.9 % (0.0-4.0); HEMOGLOBIN 14.2 g/dL (12.0-18.0); LYMPH # 1.7 K/uL (1.0-4.3); LYMPH % 20.8 % (20.0-40.0); MEAN CELL VOLUME 82.9 fL (80.0-94.0); MEAN CORPUSCULAR HGB CONC 33.8 g/dL (33.0-37.0); MEAN PLATELET VOLUME 8.8 fL (7.2-11.7); MONO # 0.6 K/uL (0.0-0.8); MONO % 7.8 % (0.0-10.0); NEUT # 5.6 K/uL (1.8-7.0); NEUT % 68.9 % (50.0-75.0); RBC 5.07 Mil/uL (4.40-5.90); RED CELL DISTRIBUTION WIDTH 14.4 % (11.5-14.5); WHITE BLOOD COUNT 8.1 K/uL (4.8-10.8)
[2018-09-18 01:19] LABS: ALB/GLOB RATIO 1.5 (1.0-2.1); ALBUMIN 4.2 g/dL (3.5-5.0); ALT/SGPT 28 U/L (21-72); AST/SGOT 24 U/L (17-59); BLOOD UREA NITROGEN 14 mg/dL (9-20); GFR NON-AFRICAN AMERICAN > 60; LIPASE 47 U/L (23-300)
[2018-09-18 01:26] LABS: URINE BACTERIA RARE (<OCC); URINE BILIRUBIN NEGATIVE (NEGATIVE); URINE BLOOD NEGATIVE (NEGATIVE); URINE CLARITY Clear (Clear); URINE COLOR Yellow (YELLOW); URINE GLUCOSE (UA) NORMAL (Normal); URINE LEUKOCYTE ESTERASE NEG Leu/uL (Negative); URINE PROTEIN NEGATIVE (NEGATIVE)
[2018-09-18 02:05] LABS: INR 1.1; PROTHROMBIN TIME 12.2 SECONDS (9.7-12.2)
[2018-09-18 04:21] VITALS: BP 110/70; PULSE 70; RESP 14; TEMP 97.7; O2SAT 98
--- NOTE | 2018-09-18 10:24 | US ---
Date of service: 09/18/2018 HISTORY: ruq, gallstones COMPARISON: None. TECHNIQUE: Sonographic evaluation of the right upper quadrant of the abdomen. FINDINGS: LIVER: Measures 19.7 cm in length. Diffusely increased echogenicity of the liver parenchyma. Consistent with fatty infiltration. No mass. Smooth contour. No biliary dilatation. GALLBLADDER: Cholelithiasis. No mural thickening. No pericholecystic fluid. Negative sonographic Dixon sign. COMMON BILE DUCT: Measures 4 mm. No stones. No dilatation. PANCREAS: Unremarkable as visualized. No mass. No ductal dilatation. RIGHT KIDNEY: Measures 13.0 cm in length. Normal cortical thickness and echogenicity. Nonobstructing 4 mm calculus mid right kidney. No mass. AORTA: No aneurysmal dilatation. IVC: Unremarkable. OTHER FINDINGS: None . IMPRESSION: Cholelithiasis without evidence of cholecystitis. Mild hepatomegaly with fatty infiltration of the liver. Nonobstructing 4 mm mid right renal calculus. The preliminary findings for this examination were reported by [facility] Rad[facility] at 3:31 a.m. on 09/18/2018. There is concurrence of this report with the preliminary findings.
--- NOTE | 2018-09-18 19:38 | CARD ---
APPROVED REPORT Date of service: 09/18/2018 EKG Measurement Heart [id number] <Conclusion> Normal sinus rhythm Incomplete right bundle branch block Nonspecific T wave abnormality Abnormal ECG
== END 2018-09-18 04:20 | disposition home or self-care (01) ==
LOC: C.ER 00:10
DX: K80.20 Calculus of gallbladder without cholecystitis without obstruction (principal); R10.13 Epigastric pain
CPT/HCPCS: 76705; 80053; 81001; 83690; 85025; 85610; 85730; 93005; 96374; 96375; 99283; C9113; J1885; J7030

== ENCOUNTER 2018-09-22 02:13 | Emergency (ER) | payer BC ==
[2018-09-22 02:14] VITALS: BMI 31.1
[2018-09-22 02:20] VITALS: O2SAT 98
[2018-09-22] MEDS ORDERED: Sodium Chloride 0.9% 1,000 ML IV ONE (03:04)
--- NOTE | 2018-09-22 03:08 | C.PDOC ---
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 Patient was seen in the ED on 09/18 for same symptoms, labs and US results were reviewed. Patient states his pain has been fo r the past weel and a half and this episodes is similar to prior. Patient states he is not taking any pain medications now but took one of his 's oxycodone at 21:00. Patient denies fever, chills, nausea, vomit, diarrhea, dysuria, hematuria, back pain. Time Seen by Provider: 09/22/18 02:43 Chief Complaint (Nursing): Abdominal Pain History Per: Patient History/Exam Limitations: no limitations Onset/Duration Of Symptoms: Days Current Symptoms Are (Timing): Still Present Location Of Pain/Discomfort: RUQ Quality Of Discomfort: "Pain" Associated Symptoms: denies: Nausea, Vomiting, Diarrhea, Urinary Symptoms Alleviating Factors: None Recent travel outside of the [place]: No Additional History Per: Patient Past Medical History Reviewed: Historical Data, Nursing Documentation, Vital Signs Vital Signs: Last Vital Signs Temp 98.2 F 09/22/18 02:18 Pulse 80 09/22/18 02:18 Resp 22 09/22/18 02:18 BP 108/72 09/22/18 02:18 Pulse Ox 98 09/22/18 02:18 - Medical History PMH: Anemia (hx blood transfusions), Anxiety, Back Problems, Gall Bladder Disease (gallstones), Kidney Stones, Malignancy (lymphoma), Chronic Kidney Disease Surgical History: No Surg Hx Family History: States: Unknown Family Hx - Social History Hx Tobacco Use: No Hx Alcohol Use: Yes Hx Substance Use: No - Immunization History Hx Tetanus Toxoid Vaccination: No Hx Influenza Vaccination: No Hx Pneumococcal Vaccination: No Review Of Systems Constitutional: Negative for: Fever, Chills Cardiovascular: Negative for: Chest Pain Respiratory: Negative for: Cough, Shortness of Breath Gastrointestinal: Positive for: Abdominal Pain. Negative for: Nausea, Vomiting, Diarrhea Genitourinary: Negative for: Dysuria, Hematuria Musculoskeletal: Negative for: Back Pain Skin: Negative for: Rash Physical Exam - Physical Exam Appears: Non-toxic, No Acute Distress Skin: Normal Color, Warm, Dry Head: Atraumatic, Normacephalic Eye(s): bilateral: Normal Inspection Oral Mucosa: Moist Neck: Normal ROM, Supple Chest: Symmetrical Cardiovascular: Rhythm Regular Respiratory: Normal Breath Sounds, No Rales, No Rhonchi, No Wheezing Gastrointestinal/Abdominal: Soft, Tenderness (mild RUQ), No Guarding, No Rebound Extremity: Bilateral: Atraumatic, Normal Color And Temperature, Normal ROM Neurological/Psych: Oriented x3, Normal Speech, Normal Cognition Gait: Steady ED Course And Treatment - Laboratory Results Result Diagrams: 09/22/18 03:20 09/22/18 03:20 O2 Sat by Pulse Oximetry: 98 (ON RA) Pulse Ox Interpretation: Normal - CT Scan/US US abdomen Other Rad Studies (CT/US): Read By Radiologist, Radiology Report Reviewed CT/US Interpretation: CLINICAL HISTORY: Abdominal pain. TECHNIQUE: Realtime sonographic images were obtained in multiple projections. COMMENTS: The liver is enlarged, 18 cm, its parenchyma is somewhat echogenic compatible with fatty infiltration. No discrete hepatic mass is seen. There is no intra or extrahepatic biliary ductal dilatation. CBD measures 5 mm. The gallbladder is physiologically distended and contains calculi. The gallbladder wall is thickened, 3.7 mm. There is no pericholecystic fluid. There is no abdominal ascites. The visualized portions of the pancreas are unremarkable. The spleen is of uniform echo texture and does not appear enlarged. The right kidney measures is free of hydronephrosis. The visualized portions of abdominal aorta and IVC present no abnormalities. IMPRESSION: Enlarged echogenic liver compatible with fatty infiltration. Gallstones with thickened gallbladder wall compatible with cholecystitis. Thank you for your kind referral of this patient. . Electronically signed on Sep 22, 2018 5:21:00 AM EST by: Colby Brody M.D., SHERYL Certified By [facility]BR & [facility]. Fellowship Trained MRI and CT Specialist Progress - Re-Evaluation Re-evaluation Note: 09/22/18 05:33 EXAM UNCH PRIOR. PT ADVISED OF NEW US FINDINGS, PROBABLE ADMISSION. PS DOESN'T WANT TO STAY AND DOES NOT WANT SURG EVAL. The patient declines admission to the hospital and wishes to leave the Emergency Department. This action is against my medical advice. This decision was made with informed refusal. The patient was told that admission to the hospital is necessary. Explanation of the reasons why were discussed. The risks of leaving were explained to the patient and include, but are not limited to, worsening of known or currently unknown conditions, permanent disability and from undiagnosed or untreated conditions. The patient has the capacity to make this informed decision and understands my explanation of the current medical problem and risks of leaving. The patient voluntarily accepts these risks and signed an AMA form documenting our conversation. The patient was given the opportunity to ask questions and reconsider. The patient was encouraged to return to the Emergency Department at any time for further care. - Data Reviewed Data Reviewed: Lab, Diagnostic imaging, Old records Medical Decision Making Medical Decision Making: Plan: * Labs * IV fluids * UA * Abdomen US Old record reviewed, US and lab work or previous ED visit. Disposition Counseled Patient/Family Regarding: Studies Performed, Diagnosis, Need For Followup, Rx Given - Disposition Referrals: YOUR,PMD [Other] Disposition: AGAINST MEDICAL ADVICE Disposition Time: 05:35 Condition: IMPROVED Additional Instructions: YOU HAVE BEEN ADVISED OF THE NEED FOR FURTHER TESTING OF YOUR EMERGENCY MEDICAL CONDITION. YOU HAVE BEEN ADVISED THE RISKS OF LEAVING INCLUDING DISABILITY, DETERIORATION AND . YOU HAVE STATED VERBAL UNDERSTANDING AND WISH TO PROCEED TO LEAVE AGAINST MEDICAL ADVICE. FOLLOW UP WITH YOUR PMD DIOMEDES. RETURN IF WORSENING SYMPTOMS. Prescriptions: oxyCODONE/Acetaminophen [Percocet 5/325 mg Tab] 1 ea PO Q6 PRN #10 tab PRN Reason: Pain, Moderate (4-7) Instructions: Gallstones (DC), Leaving Against Medical Advice Forms: [employer] (Belarusian) - Clinical Impression Clinical Impression: Cholecystitis, acute - Scribe Statement The provider has reviewed the documentation as recorded by the Scribe Asa Daniels All medical record entries made by the Scribe were at my direction and personally dictated by me. I have reviewed the chart and agree that the record accurately reflects my personal performance of the history, physical exam, medical decision making, and the department course for this patient. I have also personally directed, reviewed, and agree with the discharge instructions and disposition.
[2018-09-22] MEDS ORDERED: Sodium Chloride 0.9% 1,000 ML ONE (03:11)
[2018-09-22 03:23] LABS: BASO % 0.4 % (0.0-2.0); EOS # 0.1 K/uL (0.0-0.7); EOS % 1.4 % (0.0-4.0); HEMOGLOBIN 13.7 g/dL (12.0-18.0); LYMPH # 1.3 K/uL (1.0-4.3); LYMPH % 20.6 % (20.0-40.0); MEAN CELL VOLUME 83.6 fL (80.0-94.0); MEAN CORPUSCULAR HEMOGLOBIN 28.8 pg (27.0-31.0); MEAN CORPUSCULAR HGB CONC 34.4 g/dL (33.0-37.0); MEAN PLATELET VOLUME 8.7 fL (7.2-11.7); MONO # 0.5 K/uL (0.0-0.8); MONO % 7.9 % (0.0-10.0); NEUT # 4.5 K/uL (1.8-7.0); NEUT % 69.7 % (50.0-75.0); RBC 4.76 Mil/uL (4.40-5.90); RED CELL DISTRIBUTION WIDTH 14.3 % (11.5-14.5); WHITE BLOOD COUNT 6.4 K/uL (4.8-10.8)
[2018-09-22 03:25] LABS: URINE BILIRUBIN NEGATIVE (NEGATIVE); URINE BLOOD NEGATIVE (NEGATIVE); URINE CLARITY Clear (Clear); URINE COLOR Yellow (YELLOW); URINE GLUCOSE (UA) NORMAL (Normal); URINE LEUKOCYTE ESTERASE NEG Leu/uL (Negative); URINE PROTEIN NEGATIVE (NEGATIVE); URINE UROBILINOGEN NORMAL mg/dL (0.2-1.0)
[2018-09-22 03:36] LABS: ALB/GLOB RATIO 1.5 (1.0-2.1); ALBUMIN 4.2 g/dL (3.5-5.0); ALT/SGPT 34 U/L (21-72); AST/SGOT 37 U/L (17-59); BLOOD UREA NITROGEN 20 mg/dL (9-20); CALCIUM 8.9 mg/dl (8.6-10.4); GFR NON-AFRICAN AMERICAN > 60; LIPASE 29 U/L (23-300)
[2018-09-22 05:41] VITALS: BP 135/78; PULSE 62; RESP 14; TEMP 97.8
--- NOTE | 2018-09-22 16:52 | US ---
Date of service: 09/22/2018 HISTORY: ruq pain ro acute tracie compare to 09/18 COMPARISON: Comparison made with prior CT scan abdomen and pelvis dated 07/17/2018. TECHNIQUE: Sonographic evaluation of the right upper quadrant of the abdomen. FINDINGS: LIVER: Measures 18.0 cm in length. Smooth contour however increased echotexture suggesting fatty infiltration however other infiltrative hepatocellular disease process not excluded. No mass. No intrahepatic bile duct dilatation. GALLBLADDER: Cholelithiasis. There appears to be mild wall edema. No evidence of pericholecystic fluid collections or sonographic Dixon sign. COMMON BILE DUCT: Measures 4.5 mm. No stones. No dilatation. PANCREAS: Unremarkable as visualized. No mass. No ductal dilatation. RIGHT KIDNEY: Measures 13.2 x 4.6 x 5.7 cm in length. Normal echogenicity. No masses., or hydronephrosis.. Nonobstructing echogenic foci seen in the midpole and mid to lower pole right kidney, measuring 0.45 cm and 0.3 cm respectively.. No evidence of hydronephrosis. Previously suspected small exophytic cyst posterior midpole right kidney not appreciated on this exam AORTA: No aneurysmal dilatation. IVC: Unremarkable. OTHER FINDINGS: None . IMPRESSION: Cholelithiasis with mild wall edema. No sonographic Dixon sign.. Probable fatty hepatic infiltration however other infiltrative disease process not excluded. Nonobstructing tiny right renal calculi. Suspect fatty hepatic
== END 2018-09-22 05:51 | disposition left against medical advice (07) ==
LOC: C.ER 02:13
DX: K81.0 Acute cholecystitis (principal)
CPT/HCPCS: 76705; 80053; 81001; 83690; 85025; 99285; J7030

== ENCOUNTER 2018-09-22 11:02 | Emergency (ER) | payer BC ==
[2018-09-22 11:03] VITALS: BMI 31.1
[2018-09-22 12:57] VITALS: BP 123/82; PULSE 74; RESP 18; TEMP 98.1; O2SAT 100
--- NOTE | 2018-09-22 13:29 | C.PDOC ---
History Of Present Illness 43 y/o male returns to ER for evaluation. Patient was seen in our ER last night and was told he had cholecystitis, but he signed out AMA prior to surgical evaluation because "it was his wifes birthday and he wanted to see her". Patient admits to history of panic attacks/anxiety, states he had a panic attack this morning. Patient took PO Lorazepam and felt better. He denies current abdominal pain, nausea, vomiting, diarrhea, fever, chills, dysuria/hematuria. Time Seen by Provider: 09/22/18 11:07 Chief Complaint (Nursing): Abdominal Pain History Per: Patient History/Exam Limitations: no limitations Current Symptoms Are (Timing): Gone Past Medical History Reviewed: Historical Data, Nursing Documentation, Vital Signs Vital Signs: Last Vital Signs Temp 98.1 F 09/22/18 12:56 Pulse 74 09/22/18 12:56 Resp 18 09/22/18 12:56 BP 123/82 09/22/18 12:56 Pulse Ox 100 09/22/18 12:56 - Medical History PMH: Anemia (hx blood transfusions), Anxiety, Back Problems, Gall Bladder Disease (gallstones), Kidney Stones, Malignancy (lymphoma), Chronic Kidney Disease Family History: States: No Known Family Hx - Social History Hx Tobacco Use: No Hx Alcohol Use: No Hx Substance Use: No - Immunization History Hx Tetanus Toxoid Vaccination: No Hx Influenza Vaccination: No Hx Pneumococcal Vaccination: No Review Of Systems Constitutional: Negative for: Fever, Chills Cardiovascular: Negative for: Chest Pain, Palpitations Respiratory: Negative for: Cough, Shortness of Breath Gastrointestinal: Negative for: Nausea, Vomiting, Abdominal Pain, Diarrhea Genitourinary: Negative for: Dysuria, Hematuria Skin: Negative for: Rash Physical Exam - Physical Exam Appears: Well, Non-toxic, No Acute Distress Skin: Warm, Dry Eye(s): bilateral: Normal Inspection Oral Mucosa: Moist Neck: Supple Cardiovascular: Rhythm Regular Respiratory: Normal Breath Sounds, No Rales, No Rhonchi, No Wheezing Gastrointestinal/Abdominal: Normal Exam, Bowel Sounds, Soft, No Tenderness, Other ((-) Dixon's) Back: Normal Inspection, No CVA Tenderness Extremity: Bilateral: Atraumatic, Normal Color And Temperature, Normal ROM Neurological/Psych: Oriented x3 ED Course And Treatment O2 Sat by Pulse Oximetry: 100 (RA) Pulse Ox Interpretation: Normal Progress Note: Prior visit reviewed - US shows cholelithiasis with mild wall edema. Patient has no current abdominal pain, and normal abdominal physical exam and normal vitals. Earlier blood work done shows no leukocytosis or elevated liver ezymes. Patient reassurred and instructed to follow up with general surgeon as outpatient (already scheduled for 09/24/18). He understands he should return to ED if he has any concerning symptoms. Rxs for Ciprofloxacin and Flagyl given. Disposition Counseled Patient/Family Regarding: Diagnosis, Need For Followup, Rx Given - Disposition Referrals: Ki Villasenor [Staff Provider] - Disposition: HOME/ ROUTINE Disposition Time: 12:50 Condition: STABLE Additional Instructions: FOLLOW UP WITH GENERAL SURGEON ON MONDAY 09/24 SCHEDULED TAKE ANTIBIOTICS AND USE PAIN MEDICATION NEEDED RETURN TO ER IMMEDIATELY IF SYMPTOMS WORSEN AVOID FATTY/FRIED/GREASY FOODS Prescriptions: Ciprofloxacin [Cipro] 1 tab PO BID #14 tab metroNIDAZOLE [Flagyl] 500 mg PO TID #21 tab Instructions: Gallstones (DC) Forms: [employer] (St Helenian) Print Language: CONGOLESE - Clinical Impression Clinical Impression: Cholelithiasis - Scribe Statement The provider has reviewed the documentation as recorded by the Treibroma Sanchez Provider Attestation: All medical record entries made by the Treibroma were at my direction and personally dictated by me. I have reviewed the chart and agree that the record accurately reflects my personal performance of the history, physical exam, medical decision making, and the department course for this patient. I have also personally directed, reviewed, and agree with the discharge instructions and disposition.
== END 2018-09-22 12:57 | disposition home or self-care (01) ==
LOC: C.ER 11:02
DX: K80.20 Calculus of gallbladder without cholecystitis without obstruction (principal)

== ENCOUNTER 2018-09-30 07:54 | Day surgery (SDC) | payer BC ==
[2018-09-30] MEDS ORDERED: ceFAZolin IV 1 gm in Dextrose 1 GM/50 ML BAG IVPB ONE ×2 (09:10→10:55)
[2018-09-30] MEDS ORDERED: Bupivacaine 0.25% 20 ML INJ IJ ONE (09:10)
[2018-09-30] MEDS ORDERED: Lidocaine/Epinephrine 1% 1:100000 10 ML IJ ONE (09:10)
[2018-09-30] MEDS ORDERED: Propofol 10 mg/ml Inj (20 ML) ONE (09:36)
[2018-09-30] MEDS ORDERED: Midazolam 2 MG/2 ML VIAL ONE (09:36)
[2018-09-30] MEDS ORDERED: Neostigmine Methylsulfate 3mg/3ml Syringe IV ONE (11:52)
[2018-09-30] MEDS: HYDROmorphone 0.5 mg/0.5 ml ISec IVP PRN ×3 (12:45→13:20)
--- NOTE | 2018-09-30 13:20 | PCM.SURG1 ---
Surgeon's Initial Post Op Note - Surgeon's Notes Surgeon: Dr. Spears Administrative Receptionist: Anayeli Coronado Type of Anesthesia: General Endo, Local Pre-Operative Diagnosis: cholelithiasis Operative Findings: Gallstones Post-Operative Diagnosis: Same Operation Performed: Robot cholecystectomy Specimen/Specimens Removed: gallbladder w stones Estimated Blood Loss: EBL {In ML}: 10 Blood Products Given: N/A Drains Used: No Drains Post-Op Condition: Good Date of Surgery/Procedure: 09/30/18 Time of Surgery/Procedure: 13:19
--- NOTE | 2018-09-30 21:00 | OP ---
PROCEDURE DATE: 09/30/2018 PREOPERATIVE DIAGNOSES: 1. Chronic cholecystitis, cholelithiasis. 2. Possible postinfectious adhesion. 3. Morbid obesity. PROCEDURES: 1. Robotic cholecystectomy. 2. Robotic extensive lysis of adhesion. ANESTHESIA: General endotracheal tube anesthesia. ESTIMATED BLOOD LOSS: Around 10 mL. DRAINS: None. PATHOLOGY: Gallbladder with gallstones was sent for the pathology. COMPLICATIONS: None. INTRAOPERATIVE FINDINGS: The patient had changes of acute on chronic cholecystitis with extensive postinfectious and postinflammatory adhesions of the omentum to the gallbladder, colon to the gallbladder, and duodenum to the liver as well as to the gallbladder and extensive enterolysis and lysis of adhesion was done. DESCRIPTION OF PROCEDURE: On intraoperative steps, this 43-year-old male who was diagnosed with chronic colicystitis and cholelithiasis and the patient was admitted in the ER last week and the patient was advised for operation and the patient was discharge home with outpatient appointment. The patient was consented for the laparoscopic assisted robotic cholecystectomy, possible open, brought to the OR, placed supine on operating table. After induction of anesthesia, the abdomen was prepped and draped in the usual sterile fashion. A supraumbilical transverse incision was made after incising the skin, subcutaneous tissue and the fascia. The robotic camera port was placed. Pneumo was created. Another three 8-mm port was placed in upper abdomen. Robot was brought in. Camera arm as well as arm one and arm two were docked and the gallbladder appeared to be extremely the omentum, colon, and duodenum. First, the lysis of adhesion was done and the fundus of the gallbladder was retracted cranially and further enterolysis was done in order to identify the infundibulum as well as Calot's triangle and after proper enterolysis, the infundibulum was retracted laterally. Calot's triangle dissection was done. Cystic duct and cystic artery were identified. The intraoperative Firefly was used. A top-down approach was done and cystic duct and cystic artery were clipped at three places and cut in between two clips nearby gallbladder and gallbladder was dissected free from the gallbladder fossa, taken in EndoCatch bag, taken out through the umbilical port site and sent off the table for the pathology. There was a proper hemostasis in each and every part of the procedure and the gallbladder was sent off the table for the pathology. All the instrument was taken out and robot was undocked. Umbilical port site was closed in 2 layers. The fascia with 0 Vicryl interrupted suture, skin with 4-0 Monocryl, and dry sterile dressing was applied. The patient tolerated the procedure well. Count of instrument and gauze was correct. There was no apparent complication. The patient was extubated in OR and to the postanesthesia care in stable condition. Brody Spears MD
[2018-10-01 00:12] VITALS: BP 139/69; PULSE 86; RESP 16; TEMP 97.9; O2SAT 97
== END 2018-09-30 16:35 | disposition home or self-care (01) ==
LOC: C.SDS 07:54
PROVIDERS: ATTEND Surgery Surgical Critical Care
DX: K80.10 Calculus of gallbladder with chronic cholecystitis without obstruction (principal); E66.01 Morbid (severe) obesity due to excess calories
CPT/HCPCS: 47562; 88304; J0690; J1170; J2250; J2405; J2704; J2710; J3010

== ENCOUNTER 2018-10-01 17:06 | Emergency (ER) | payer BC ==
[2018-10-01 17:07] VITALS: BMI 31.1
[2018-10-01 17:20] VITALS: PULSE 83; RESP 20; TEMP 98.1; O2SAT 95
--- NOTE | 2018-10-01 19:08 | C.PDOC ---
History Of Present Illness 43 year old male presents to the ED for evaluation of anxiety that started today with bilateral 'foot numbness' that has been intermittent for weeks. Patient reports taking pain medication he has s/p cholecystectomy yesterday with Lorazepam followed by bilateral foot numbness causing anxiety. pt reports no longer anxious, and foot numbness has resolved. no hi or si. Denies abdominal pain, fever, nausea, vomiting, diarrhea. reports no bm since surgery. Time Seen by Provider: 10/01/18 18:14 Chief Complaint (Nursing): Anxiety History Per: Patient History/Exam Limitations: no limitations Onset/Duration Of Symptoms: Hrs Current Symptoms Are (Timing): Still Present Past Medical History Reviewed: Historical Data, Nursing Documentation, Vital Signs Vital Signs: Last Vital Signs Temp 98.1 F 10/01/18 17:16 Pulse 83 10/01/18 17:16 Resp 20 10/01/18 17:16 BP Pulse Ox 95 10/01/18 17:16 - Medical History PMH: Anemia (hx blood transfusions), Anxiety, Back Problems, Gall Bladder Disease (gallstones), Kidney Stones, Malignancy (lymphoma), Chronic Kidney Disease Surgical History: Cholecystectomy ([facility]. 09/30/2018) Family History: States: Unknown Family Hx - Social History Hx Tobacco Use: No Hx Alcohol Use: No Hx Substance Use: No - Immunization History Hx Tetanus Toxoid Vaccination: No Hx Influenza Vaccination: No Hx Pneumococcal Vaccination: No Review Of Systems Constitutional: Negative for: Fever, Chills Gastrointestinal: Positive for: Constipation. Negative for: Nausea, Vomiting, Abdominal Pain, Diarrhea Skin: Negative for: Rash Neurological: Positive for: Numbness (to the feet bilaterally.). Negative for: Weakness Psych: Positive for: Anxiety. Negative for: Suicidal ideation Physical Exam - Physical Exam Appears: Non-toxic, No Acute Distress Skin: Warm, Dry Head: Atraumatic, Normacephalic Eye(s): bilateral: Normal Inspection Oral Mucosa: Moist Neck: Supple Cardiovascular: Rhythm Regular, No Murmur Respiratory: No Decreased Breath Sounds, No Wheezing Gastrointestinal/Abdominal: Bowel Sounds, Soft, No Tenderness, Other (bandages covering wound sites from laparoscopic cholecystecomy. ) Extremity: No Tenderness, No Pedal Edema, No Swelling Pulses: Left Dorsalis Pedis: Normal, Right Dorsalis Pedis: Normal Neurological/Psych: Oriented x3, Normal Speech, Normal Cognition, Normal Motor, Normal Sensation, Normal Reflexes ED Course And Treatment O2 Sat by Pulse Oximetry: 95 (RA) Pulse Ox Interpretation: Normal Medical Decision Making Medical Decision Making: Progress/Update: pt feeling well now. advised not to take xanax and percocet within several hours of each other. f/u with neuro re paresthesia to feet. colace for constipation. Patient stable for discharge home. Prescribed Colace. Disposition Counseled Patient/Family Regarding: Diagnosis, Need For Followup, Rx Given - Disposition Referrals: Skye Aldridge MD [Staff Provider] - Brody Spears MD [Staff Provider] - Ki Villasenor [Staff Provider] - [facility] [Outside] Disposition: HOME/ ROUTINE Disposition Time: 19:08 Condition: GOOD Additional Instructions: Drink increased water. Take Colace as prescribed. DO not take xanax and percocet near one another. Follow up with Dr Aldridge for feet, and with surgeon nextTues as planned. Follow up with [facility] for counseling for anxiery. Call for appointments. Prescriptions: Docusate Sodium [Colace] 100 mg PO BID #60 capsule Instructions: Anxiety, Adult (DC) Forms: [facility] (Pashto), General Discharge Instructions - Clinical Impression Clinical Impression: Anxiety - PA / ELECTROMEDICAL SERVICE ENGINEER / Resident Statement MD/ has reviewed & agrees with the documentation as recorded. - Scribe Statement The provider has reviewed the documentation as recorded by the Scribe (Miryam Mistry) All medical record entries made by the Scribe were at my direction and personally dictated by me. I have reviewed the chart and agree that the record accurately reflects my personal performance of the history, physical exam, medical decision making, and the department course for this patient. I have also personally directed, reviewed, and agree with the discharge instructions and disposition.
== END 2018-10-01 19:23 | disposition home or self-care (01) ==
LOC: C.ER 17:06
DX: F41.9 Anxiety disorder, unspecified (principal)

== ENCOUNTER 2018-10-04 13:53 | Emergency (ER) | payer BC ==
[2018-10-04 13:53] VITALS: BMI 31.1
[2018-10-04 14:06] VITALS: BP 119/69; PULSE 69; RESP 18; TEMP 98.4; O2SAT 98
--- NOTE | 2018-10-04 14:28 | C.PDOC ---
History Of Present Illness 43 year old male presents to the ED c/o left upper chest discomfort that is digitally reproducible and occasional hand and feet numbness. Patient reports his symptoms are related to his anxiety which improves after taking Xanax. Patient's symptoms are chronic underlying. Patient recently had cholecystectomy with no complications. Patient states he took his Xanax today at 08;00 and 11:00. Patient states he feels calm and relaxed now. Patient denies SI/HI, hallucinations, SOB, palpitations, headache, dizziness, weakness. Time Seen by Provider: 10/04/18 14:16 Chief Complaint (Nursing): Chest Pain History Per: Patient History/Exam Limitations: no limitations Onset/Duration Of Symptoms: Days Current Symptoms Are (Timing): Still Present Suicide/Self Injury Attempted (Context): None Associated Symptoms: Anxiety. denies: Depression, Suicidal Thoughts, Suicidal Plan Recent travel outside of the [place]: No Additional History Per: Patient Past Medical History Reviewed: Historical Data, Nursing Documentation, Vital Signs Vital Signs: Last Vital Signs Temp 98.4 F 10/04/18 14:03 Pulse 69 10/04/18 14:03 Resp 18 10/04/18 14:03 BP 119/69 10/04/18 14:03 Pulse Ox 98 10/04/18 14:03 - Medical History PMH: Anemia (hx blood transfusions), Anxiety, Back Problems, Gall Bladder Disease (GB removed), Kidney Stones, Malignancy (lymphoma), Chronic Kidney Disease Surgical History: Cholecystectomy (lap. hodges. 09/30/2018) Family History: States: Unknown Family Hx - Social History Hx Tobacco Use: No Hx Alcohol Use: No Hx Substance Use: No - Immunization History Hx Tetanus Toxoid Vaccination: No Hx Influenza Vaccination: No Hx Pneumococcal Vaccination: No Review Of Systems Constitutional: Negative for: Fever, Chills Cardiovascular: Positive for: Chest Pain. Negative for: Palpitations Respiratory: Negative for: Cough, Shortness of Breath Gastrointestinal: Negative for: Nausea, Vomiting, Abdominal Pain Skin: Negative for: Rash Neurological: Positive for: Numbness. Negative for: Weakness, Headache, Dizziness Physical Exam - Physical Exam Appears: Non-toxic, No Acute Distress, Other (large male) Skin: Normal Color, Warm, Dry, No Rash Head: Atraumatic, Normacephalic Eye(s): bilateral: Normal Inspection, PERRL, EOMI Neck: Normal ROM, Supple Chest: Symmetrical, Tenderness (digitally reproducible left parasternal area) Cardiovascular: Rhythm Regular Respiratory: Normal Breath Sounds, No Rales, No Rhonchi, No Wheezing Gastrointestinal/Abdominal: Soft, No Tenderness, No Guarding, No Rebound, Other (healing laparoscopic surgery wounds upper abdomen x4 clean, dry, intact.) Extremity: Normal ROM, No Tenderness, No Swelling Neurological/Psych: Oriented x3, Normal Speech, Normal Cognition, Normal Motor, Normal Sensation Gait: Steady ED Course And Treatment ECG: Interpreted By Me ECG Rhythm: Sinus Rhythm ECG Interpretation: Normal Rate From EC O2 Sat by Pulse Oximetry: 98 (On RA) Pulse Ox Interpretation: Normal Medical Decision Making Medical Decision Making: cp l upper chest digitally reproducable normal ekg b/l hand/feet parasthesias reponds well to Xanax PO long h/o anxiety disorder re-directed to [facility] for opt eval and f/u. Disposition Doctor Will See Patient In The: Office Counseled Patient/Family Regarding: Studies Performed, Diagnosis - Disposition Referrals: [facility] [Outside] [facility] [Outside] [facility] [Outside] [facility] [Outside] Ki Villasenor [Staff Provider] - Disposition: HOME/ ROUTINE Disposition Time: 14:27 Condition: GOOD Additional Instructions: chest wall discomfort motrin 4000-600 mg every 6 hours as needed EKG NORMAL Anxiety: Follow-up @ the [facility] for outpatient eval/meds/follow-up Instructions: Costochondritis, Anxiety, Adult (DC) Forms: [employer] (Haitian) - Clinical Impression Clinical Impression: Chest wall discomfort, Anxiety - Scribe Statement The provider has reviewed the documentation as recorded by the Scribe Asa Daniels All medical record entries made by the Scribe were at my direction and personally dictated by me. I have reviewed the chart and agree that the record accurately reflects my personal performance of the history, physical exam, medical decision making, and the department course for this patient. I have also personally directed, reviewed, and agree with the discharge instructions and disposition.
--- NOTE | 2018-10-07 19:43 | CARD ---
APPROVED REPORT Date of service: 10/04/2018 EKG Measurement Heart [id number] HI [id number] <Conclusion> Normal sinus rhythm Normal ECG
== END 2018-10-04 14:34 | disposition home or self-care (01) ==
LOC: C.ER 13:53
DX: R07.89 Other chest pain (principal); F41.9 Anxiety disorder, unspecified

== ENCOUNTER 2018-10-10 18:32 | Emergency (ER) | payer BC ==
[2018-10-10 18:33] VITALS: BMI 31.1
[2018-10-10 18:44] VITALS: BP 105/58; PULSE 75; RESP 20; TEMP 97.6; O2SAT 98
[2018-10-10] MEDS ORDERED: Sodium Chloride 0.9% 1,000 ML IV ONE (19:21)
--- NOTE | 2018-10-10 19:21 | C.PDOC ---
History Of Present Illness 43 year old male presents to the ED for evaluation. Patient reports he had a lap tracie 10 days ago, today he picked up something heavy and felt a twitch. Patient panicked and decided to come in for evaluation. Patient saw Dr. Spears today for his regular check up. Patient denies fever, chills, nausea, vomit, diarrhea, injury, fall, trauma. Time Seen by Provider: 10/10/18 19:16 Chief Complaint (Nursing): Abdominal Pain History Per: Patient History/Exam Limitations: no limitations Onset/Duration Of Symptoms: Hrs Current Symptoms Are (Timing): Still Present Location Of Pain/Discomfort: Diffuse Quality Of Discomfort: "Pain" Associated Symptoms: denies: Nausea, Vomiting, Diarrhea, Urinary Symptoms Exacerbating Factors: Movement Alleviating Factors: None Recent travel outside of the [place]: No Additional History Per: Patient Past Medical History Reviewed: Historical Data, Nursing Documentation, Vital Signs Vital Signs: Last Vital Signs Temp 97.6 F 10/10/18 18:41 Pulse 75 10/10/18 18:41 Resp 20 10/10/18 18:41 BP 105/58 L 10/10/18 18:41 Pulse Ox 98 10/10/18 18:41 - Medical History PMH: Anemia (hx blood transfusions), Anxiety, Back Problems, Gall Bladder Disease (GB removed), Kidney Stones, Malignancy (lymphoma), Chronic Kidney Disease Surgical History: Cholecystectomy (lap. tracie. 09/30/2018) Family History: States: No Known Family Hx - Social History Hx Tobacco Use: No Hx Alcohol Use: No Hx Substance Use: No - Immunization History Hx Tetanus Toxoid Vaccination: No Hx Influenza Vaccination: No Hx Pneumococcal Vaccination: No Review Of Systems Constitutional: Negative for: Fever, Chills Cardiovascular: Negative for: Chest Pain Respiratory: Negative for: Shortness of Breath Gastrointestinal: Positive for: Abdominal Pain. Negative for: Nausea, Vomiting, Diarrhea Genitourinary: Negative for: Dysuria, Hematuria Skin: Negative for: Rash Neurological: Negative for: Weakness, Numbness, Headache Physical Exam - Physical Exam Appears: Non-toxic, No Acute Distress Skin: Warm, Dry Head: Normacephalic Eye(s): bilateral: Normal Inspection Neck: Supple Chest: Symmetrical Cardiovascular: Rhythm Regular Respiratory: No Rales, No Rhonchi, No Wheezing Gastrointestinal/Abdominal: Bowel Sounds (active), Soft, No Tenderness, No Guarding, No Rebound, Other (clean, dry surgical incision ) Extremity: Bilateral: Atraumatic, Normal Color And Temperature, Normal ROM Neurological/Psych: Oriented x3, Normal Speech, Normal Cognition Gait: Steady ED Course And Treatment O2 Sat by Pulse Oximetry: 98 (ON RA) Pulse Ox Interpretation: Normal Progress Note: Patient reports he feel much better now, patient refused blood work and requests to be discharged home. Disposition Counseled Patient/Family Regarding: Studies Performed, Diagnosis, Need For Followup - Disposition Referrals: Brody Spears MD [Staff Provider] - Disposition: HOME/ ROUTINE Disposition Time: 19:21 Condition: FAIR Additional Instructions: Please return if symptoms recur Instructions: Wound Care (DC) Forms: [employer] (Macanese) - Clinical Impression Clinical Impression: Visit for wound check - Scribe Statement The provider has reviewed the documentation as recorded by the Scribe Asa Daniels All medical record entries made by the Scribe were at my direction and personally dictated by me. I have reviewed the chart and agree that the record accurately reflects my personal performance of the history, physical exam, medical decision making, and the department course for this patient. I have also personally directed, reviewed, and agree with the discharge instructions and disposition.
== END 2018-10-10 19:56 | disposition home or self-care (01) ==
LOC: C.ER 18:32
DX: Z48.01 Encounter for change or removal of surgical wound dressing (principal)

== ENCOUNTER 2018-10-18 18:37 | Emergency (ER) | payer BC ==
[2018-10-18 18:38] VITALS: BMI 31.1
[2018-10-18 18:54] VITALS: TEMP 98.4
--- NOTE | 2018-10-18 19:34 | C.PDOC ---
History Of Present Illness 43 y/o M c PMHx cholecystectomy 2 weeks ago p/w loose stool x 2 days. Patient states that since his surgery, he was having hard stool and he was taking miralax and now for the last 2 days, he has been having loose stool. He also reports taking Pepto Bismol and had dark stool the next day. He denies any significant abdominal pain. Denies fever, chills, chest pain, dyspnea, dysuria. Requests medication that will make the diarrhea cease. Time Seen by Provider: 10/18/18 19:18 Chief Complaint (Nursing): Abdominal Pain Past Medical History Vital Signs: Last Vital Signs Temp 98.4 F 10/18/18 18:50 Pulse 100 H 10/18/18 18:50 Resp 16 10/18/18 18:50 BP 111/70 10/18/18 18:50 Pulse Ox 97 10/18/18 18:50 - Medical History PMH: Anemia (hx blood transfusions), Anxiety, Back Problems, Gall Bladder Disease (GB removed), Kidney Stones, Malignancy (lymphoma), Chronic Kidney Disease Surgical History: Cholecystectomy (lapKaryna tracie. 09/30/2018) Family History: States: Unknown Family Hx - Social History Hx Tobacco Use: No Hx Alcohol Use: No Hx Substance Use: No - Immunization History Hx Tetanus Toxoid Vaccination: No Hx Influenza Vaccination: No Hx Pneumococcal Vaccination: No Review Of Systems Except As Marked, All Systems Reviewed And Found Negative. Constitutional: Negative for: Fever Cardiovascular: Negative for: Chest Pain Physical Exam - Physical Exam Additional Physical Exam Comments: Gen: NAD Head: NC Eyes: No scleral icterus ENT: MMM CV: Regular rate Lungs: No accessory muscle use Abd: Soft Extremities: No edema Skin: No rash Neuro: Alert, no focal deficit ED Course And Treatment O2 Sat by Pulse Oximetry: 97 Medical Decision Making Medical Decision Making: Advised patient to improve diet and fluid intake. He states he hates water, fruit, and vegetables. Patient also states he already took Loperamide. Patient states he will follow up with PMD on Sunday. Instructed to return to ED for worsening pain, fever, vomiting, or rectal bleeding. Disposition - Disposition Disposition: HOME/ ROUTINE Disposition Time: 19:36 Condition: STABLE Instructions: Diarrhea in Adolescents and Adults - Clinical Impression Clinical Impression: Loose stools
[2018-10-18 19:59] VITALS: BP 110/68; PULSE 80; RESP 14; O2SAT 98
== END 2018-10-18 19:59 | disposition home or self-care (01) ==
LOC: C.ER 18:37
DX: R19.7 Diarrhea, unspecified (principal)

== ENCOUNTER 2018-10-28 21:12 | Emergency (ER) | payer BC ==
[2018-10-28 21:13] VITALS: BMI 31.1
--- NOTE | 2018-10-28 21:59 | C.PDOC ---
History Of Present Illness 43 year old male presents to the ED c/o RUQ abdominal pain associated with constipation. Patient states he had a lap tracie done on 09/30. Patient tolerating PO. Patient denies fever, chills, nausea, vomit, diarrhea, rash, dysuria, hematuria. Time Seen by Provider: 10/28/18 21:59 Chief Complaint (Nursing): Abdominal Pain History Per: Patient History/Exam Limitations: no limitations Onset/Duration Of Symptoms: Days Current Symptoms Are (Timing): Still Present Location Of Pain/Discomfort: RUQ Quality Of Discomfort: "Pain" Associated Symptoms: Constipation. denies: Nausea, Vomiting, Diarrhea Recent travel outside of the [place]: No Additional History Per: Patient Past Medical History Reviewed: Historical Data, Nursing Documentation, Vital Signs Vital Signs: Last Vital Signs Temp 98.2 F 10/28/18 21:25 Pulse 80 10/28/18 21:25 Resp 20 10/28/18 21:25 BP Pulse Ox 96 10/28/18 21:25 - Medical History PMH: Anemia (hx blood transfusions), Anxiety, Back Problems, Gall Bladder Disease (GB removed), Kidney Stones, Malignancy (lymphoma), Chronic Kidney Disease Surgical History: Cholecystectomy (lap. tracie. 09/30/2018) Family History: States: Unknown Family Hx - Social History Hx Tobacco Use: No Hx Alcohol Use: No Hx Substance Use: No - Immunization History Hx Tetanus Toxoid Vaccination: No Hx Influenza Vaccination: No Hx Pneumococcal Vaccination: No Review Of Systems Constitutional: Negative for: Fever, Chills Cardiovascular: Negative for: Chest Pain Respiratory: Negative for: Shortness of Breath Gastrointestinal: Positive for: Abdominal Pain, Constipation. Negative for: Nausea, Vomiting, Diarrhea Genitourinary: Negative for: Dysuria Skin: Negative for: Rash Neurological: Negative for: Weakness, Numbness, Headache Physical Exam - Physical Exam Appears: Non-toxic, No Acute Distress Skin: Warm, Dry Head: Normacephalic Eye(s): bilateral: Normal Inspection Oral Mucosa: Moist Neck: Supple Chest: Symmetrical Cardiovascular: Rhythm Regular Respiratory: No Rales, No Rhonchi, No Wheezing Gastrointestinal/Abdominal: Soft, Tenderness (mild RUQ), No Guarding, No Rebound Back: No CVA Tenderness Extremity: Bilateral: Atraumatic, Normal Color And Temperature, Normal ROM Neurological/Psych: Oriented x3, Normal Speech, Normal Cognition Gait: Steady ED Course And Treatment - Laboratory Results Result Diagrams: 10/28/18 23:01 10/28/18 23:01 O2 Sat by Pulse Oximetry: 96 (ON RA) Pulse Ox Interpretation: Normal Progress Note: Plan: - Labs. - Bentyl 20 mg PO. - IV fluids. - UA Reevaluation Time: 00:38 Reassessment Condition: Improved Disposition Counseled Patient/Family Regarding: Studies Performed, Diagnosis, Need For Followup - Disposition Referrals: Ki Villasenor [Staff Provider] - Disposition: HOME/ ROUTINE Disposition Time: 21:59 Condition: FAIR Instructions: Constipation, Adult (DC), Acute Abdomen (Belly Pain), Adult (DC), Mesenteric Lymphadenitis (DC) Forms: [employer] (Iranian) - Clinical Impression Clinical Impression: Abdominal pain, Constipation, Mesenteric lymphadenitis - Scribe Statement The provider has reviewed the documentation as recorded by the Scribe Asa Daniels All medical record entries made by the Scribe were at my direction and personally dictated by me. I have reviewed the chart and agree that the record accurately reflects my personal performance of the history, physical exam, medical decision making, and the department course for this patient. I have also personally directed, reviewed, and agree with the discharge instructions and dis position.
[2018-10-28] MEDS ORDERED: Sodium Chloride 0.9% 1,000 ML IV ONE (22:41)
[2018-10-28 23:06] LABS: BASO % 0.4 % (0.0-2.0); EOS # 0.1 K/uL (0.0-0.7); EOS % 1.9 % (0.0-4.0); LYMPH # 1.7 K/uL (1.0-4.3); LYMPH % 27.8 % (20.0-40.0); MEAN CELL VOLUME 85.2 fL (80.0-94.0); MEAN CORPUSCULAR HEMOGLOBIN 28.4 pg (27.0-31.0); MEAN CORPUSCULAR HGB CONC 33.4 g/dL (33.0-37.0); MEAN PLATELET VOLUME 8.9 fL (7.2-11.7); MONO # 0.4 K/uL (0.0-0.8); NEUT # 3.8 K/uL (1.8-7.0); NEUT % 63.9 % (50.0-75.0); RBC 4.93 Mil/uL (4.40-5.90); RED CELL DISTRIBUTION WIDTH 14.3 % (11.5-14.5)
[2018-10-28 23:12] LABS: SQUAMOUS EPITHIAL < 1 /hpf (0-5); URINE BILIRUBIN NEGATIVE (NEGATIVE); URINE BLOOD NEGATIVE (NEGATIVE); URINE CLARITY Clear (Clear); URINE COLOR Yellow (YELLOW); URINE GLUCOSE (UA) NORMAL (Normal); URINE LEUKOCYTE ESTERASE NEG Leu/uL (Negative); URINE PROTEIN NEGATIVE (NEGATIVE)
[2018-10-28 23:15] LABS: INR 1.1; PROTHROMBIN TIME 11.7 SECONDS (9.7-12.2)
[2018-10-28 23:24] LABS: ALB/GLOB RATIO 1.4 (1.0-2.1); ALBUMIN 3.8 g/dL (3.5-5.0); ALT/SGPT 49 U/L (21-72); AST/SGOT 32 U/L (17-59); BLOOD UREA NITROGEN 12 mg/dL (9-20); CALCIUM 8.6 mg/dl (8.6-10.4); GFR NON-AFRICAN AMERICAN > 60; LIPASE 35 U/L (23-300)
[2018-10-29 00:53] VITALS: BP 125/70; PULSE 64; RESP 20; TEMP 98; O2SAT 98
--- NOTE | 2018-10-29 10:41 | CT ---
Date of service: 2018-10-28 23:37:30 PROCEDURE: CT Abdomen and Pelvis with Oral contrast. HISTORY: Abd pain, s/p tracie COMPARISON: Comparison made with prior CT scan of the abdomen pelvis dated 07/17/2018. TECHNIQUE: Contiguous axial images of the abdomen and pelvis performed without oral or intravenous contrast material. Additional 2D sagittal and coronal reformats generated.. Radiation dose: Total exam DLP = 1211.69 mGy-cm. This CT exam was performed using one or more of the following dose reduction techniques: Automated exposure control, adjustment of the mA and/or kV according to patient size, and/or use of iterative reconstruction technique. FINDINGS: LOWER THORAX: No evidence of consolidation seen within the right or left lung bases. No effusion or basilar pneumothorax. Heart size within range of normal. No significant pericardial effusion. Tiny hiatal hernia. Note made of a small approximately 10 mm rounded nodular density subcutaneous tissues left anterolateral chest wall nonspecific. Clinical correlation recommended. LIVER: Liver exhibits relatively normal size.. Liver demonstrates relatively smooth contours. No obvious hepatic masses collections or calcifications. GALLBLADDER AND BILE DUCTS: Cholecystectomy. PANCREAS: Unremarkable. No mass. No ductal dilatation. SPLEEN: Borderline/mild splenomegaly measuring approximately 14.6 cm in AP dimension.. ADRENALS: No adrenal lesions seen.. KIDNEYS AND URETERS: Kidneys demonstrate relatively symmetric size. Punctate calcifications are seen in the mid to lower pole collecting system right kidney and midpole collecting system left kidney. No evidence of obstructive hydronephrosis. BLADDER: Gross urinary bladder is incompletely distended which in part accounts for thick-walled appearance. Muscular hypertrophy presumably contributes. Correlation with urinalysis recommended to exclude cystitis or other intrinsic/invasive wall lesion. Prostate gland measures approximately 3.8 cm. Prostatic calcifications are present.. Correlation with PSA recommended. REPRODUCTIVE: Unremarkable. APPENDIX: Normal appendix.. BOWEL: Evaluation of the bowel is somewhat limited due to the lack of oral contrast material. The stomach is distended with food debris liquid and air. Visualized loops of small bowel exhibit normal contour and caliber. No evidence of acute mechanical small bowel obstruction. There is a moderately large amount of stool seen throughout the entire colon particularly the cecum and ascending well as transverse colon consistent with fecal retention/constipation. Few scattered colonic diverticula are present. PERITONEUM: .Re demonstrated are infiltration changes in the mid upper abdominal mesentery slightly increased in appearance from prior study associated with mildly enlarged mesenteric as well as retroperitoneal lymph nodes. Findings are nonspecific though consistent with radha mesentery; differential diagnosis includes idiopathic causes, mesenteric panniculitis, inflammatory bowel disease, portal hypertension, mesenteric vein thrombosis neoplastic etiology to name a few. Clinical correlation recommended.. No fluid collection. No free air. LYMPH NODES: As above. Also Re demonstrated are bilateral inguinal lymph nodes the largest on the left side measuring 2.25 x 1.8 cm. VASCULATURE: Unremarkable. No aortic aneurysm. No aortic atherosclerotic calcification or mural plaque present. BONES: Mild multilevel degenerative spondylosis of the lower thoracic and lumbar spine. OTHER FINDINGS: None. IMPRESSION: .Re demonstrated are infiltration changes in the mid upper abdominal mesentery slightly increased in appearance from prior study associated with mildly enlarged mesenteric as well as retroperitoneal lymph nodes. Findings are nonspecific though consistent with radha mesentery; differential diagnosis includes idiopathic causes, mesenteric panniculitis, inflammatory bowel disease, portal hypertension, mesenteric vein thrombosis or neoplastic etiologies including lymphoma to name a few. No fluid collection. No free air. Clinical correlation recommended Also again seen are enlarged left inguinal lymph nodes with a few small right inguinal lymph nodes. Tiny bilateral nonobstructive renal calculi.
== END 2018-10-29 00:53 | disposition home or self-care (01) ==
LOC: C.ER 21:12
DX: K59.00 Constipation, unspecified (principal); I88.0 Nonspecific mesenteric lymphadenitis; R10.11 Right upper quadrant pain
CPT/HCPCS: 74176; 80053; 81001; 83690; 85025; 85610; 85730; 96360; 99285; J7030

== ENCOUNTER 2018-12-10 22:28 | Emergency (ER) | payer BC ==
[2018-12-10 22:29] VITALS: BMI 31.1
[2018-12-10 22:47] VITALS: BP 128/79
--- NOTE | 2018-12-10 23:38 | C.PDOC ---
Time Seen by Provider: 12/10/18 23:35 Chief Complaint (Nursing): Chest Pain Past Medical History Vital Signs: Last Vital Signs Temp 98.5 F 12/10/18 22:44 Pulse 80 12/10/18 22:44 Resp 20 12/10/18 22:44 BP 128/79 12/10/18 22:44 Pulse Ox 98 12/10/18 22:44 - Medical History PMH: Anemia (hx blood transfusions), Anxiety, Back Problems, Gall Bladder Disease (GB removed), Kidney Stones, Malignancy (lymphoma), Chronic Kidney Disease Surgical History: Cholecystectomy ( tracie. 09/30/2018) Family History: States: Unknown Family Hx - Social History Hx Tobacco Use: No Hx Alcohol Use: No Hx Substance Use: No - Immunization History Hx Tetanus Toxoid Vaccination: No Hx Influenza Vaccination: No Hx Pneumococcal Vaccination: No ED Course And Treatment ECG: Interpreted By Me, Viewed By Me ECG Rhythm: Sinus Rhythm (78), Nonspecific Changes O2 Sat by Pulse Oximetry: 98 Pulse Ox Interpretation: Normal Disposition - Disposition
--- NOTE | 2018-12-10 23:43 | C.PDOC ---
History Of Present Illness Patient presents to the ER with a complaint of chest discomfort at time but contrary to triage patient is actually here complaining pain to the lateral aspect of the left leg for a few months. Patient is scheduled to see a neurologist in 5 days. Denies back pain or bladder/bowel incontinence. Patient able to ambulate without difficulty. Time Seen by Provider: 12/10/18 23:35 Chief Complaint (Nursing): Chest Pain History Per: Patient History/Exam Limitations: no limitations Onset/Duration Of Symptoms: Days Current Symptoms Are (Timing): Still Present Severity: Moderate Pain Scale Rating Of: 4 Recent travel outside of the [place]: No Past Medical History Reviewed: Historical Data, Nursing Documentation, Vital Signs Vital Signs: Last Vital Signs Temp 98.5 F 12/10/18 22:44 Pulse 80 12/10/18 22:44 Resp 20 12/10/18 22:44 BP 128/79 12/10/18 22:44 Pulse Ox 98 12/10/18 22:44 - Medical History PMH: Anemia (hx blood transfusions), Anxiety, Back Problems, Gall Bladder Disease (GB removed), Kidney Stones, Malignancy (lymphoma), Chronic Kidney Disease Surgical History: Cholecystectomy (lap. hodges. 09/30/2018) Family History: States: No Known Family Hx - Social History Hx Tobacco Use: No Hx Alcohol Use: No Hx Substance Use: No - Immunization History Hx Tetanus Toxoid Vaccination: No Hx Influenza Vaccination: No Hx Pneumococcal Vaccination: No Review Of Systems Constitutional: Negative for: Fever, Chills Cardiovascular: Positive for: Chest Pain. Negative for: Palpitations Respiratory: Negative for: Cough, Shortness of Breath Gastrointestinal: Negative for: Nausea, Vomiting Musculoskeletal: Positive for: Leg Pain (Left) Neurological: Negative for: Weakness, Numbness Physical Exam - Physical Exam Appears: Non-toxic Skin: Warm, Dry Head: Normacephalic Oral Mucosa: Moist Neck: Trachea Midline, Supple Chest: Symmetrical, No Tenderness Cardiovascular: Rhythm Regular Respiratory: No Rales, No Rhonchi, No Wheezing Gastrointestinal/Abdominal: Soft, No Tenderness Back: No CVA Tenderness, No Vertebral Tenderness, No Paraspinal Tenderness Extremity: No Tenderness, No Calf Tenderness, No Deformity, No Swelling Pulses: Left Dorsalis Pedis: Normal, Right Dorsalis Pedis: Normal Neurological/Psych: Oriented x3, Other (No focal deficits) ED Course And Treatment - Laboratory Results Result Diagrams: 12/11/18 00:13 12/11/18 00:13 ECG: Interpreted By Me, Viewed By Me ECG Rhythm: Sinus Rhythm (78), Nonspecific Changes O2 Sat by Pulse Oximetry: 98 (Room air) Pulse Ox Interpretation: Normal Progress Note: CT lumbar spine, EKG, and blood work ordered. Aspirin administered. Reevaluation Time: 02:06 Reassessment Condition: Improved Medical Decision Making Medical Decision Making: Upon provider reevaluation patient is feeling better, is medically stable, and requires no further treatment in the ED at this time. Patient will be discharged home . Counseling was provided and all questions were answered regarding diagnosis and need for follow up with dr masters. There is agreement to discharge plan. Return if symptoms persist or worsen. Disposition Counseled Patient/Family Regarding: Studies Performed, Diagnosis, Need For Foll owup - Disposition Referrals: Ki Villsaenor [Staff Provider] - Disposition: HOME/ ROUTINE Disposition Time: 02:06 Condition: FAIR Additional Instructions: Pleas follow up with your neurologist on Sunday Instructions: Active Range of Motion Exercises, Back and Hips, Low Back Pain (DC) Forms: [employer] (Nigerien) - Clinical Impression Clinical Impression: Leg pain, left, Back pain - Scribe Statement The provider has reviewed the documentation as recorded by the Scribroma Mcintosh All medical record entries made by the Scribe were at my direction and personally dictated by me. I have reviewed the chart and agree that the record accurately reflects my personal performance of the history, physical exam, medical decision making, and the department course for this patient. I have also personally directed, reviewed, and agree with the discharge instructions and disposition.
[2018-12-10] MEDS ORDERED: Aspirin 325 mg EC Tablets PO STA (23:56)
[2018-12-11] MEDS ORDERED: Aspirin 325 mg EC Tablets PO ONE (00:08)
[2018-12-11 00:21] LABS: BASO % 0.4 % (0.0-2.0); EOS # 0.1 K/uL (0.0-0.7); EOS % 1.3 % (0.0-4.0); HEMOGLOBIN 14.5 g/dL (12.0-18.0); LYMPH # 1.7 K/uL (1.0-4.3); LYMPH % 20.5 % (20.0-40.0); MEAN CELL VOLUME 84.5 fL (80.0-94.0); MEAN CORPUSCULAR HEMOGLOBIN 27.8 pg (27.0-31.0); MEAN CORPUSCULAR HGB CONC 32.9 g/dL (33.0-37.0); MEAN PLATELET VOLUME 9.8 fL (7.2-11.7); MONO # 0.6 K/uL (0.0-0.8); MONO % 7.5 % (0.0-10.0); NEUT # 5.9 K/uL (1.8-7.0); NEUT % 70.3 % (50.0-75.0); RBC 5.2 Mil/uL (4.40-5.90); RED CELL DISTRIBUTION WIDTH 14.7 % (11.5-14.5); WHITE BLOOD COUNT 8.4 K/uL (4.8-10.8)
[2018-12-11 00:26] LABS: INR 1.1; PROTHROMBIN TIME 11.9 SECONDS (9.7-12.2)
[2018-12-11 00:35] LABS: ALB/GLOB RATIO 1.8 (1.0-2.1); ALBUMIN 4.6 g/dL (3.5-5.0); ALT/SGPT 36 U/L (21-72); AST/SGOT 28 U/L (17-59); BLOOD UREA NITROGEN 16 mg/dL (9-20); CALCIUM 8.9 mg/dl (8.6-10.4); GFR NON-AFRICAN AMERICAN > 60; LIPASE 38 U/L (23-300)
[2018-12-11 02:26] VITALS: PULSE 79; RESP 18; TEMP 97.8; O2SAT 100
--- NOTE | 2018-12-11 14:23 | CARD ---
APPROVED REPORT Date of service: 12/10/2018 EKG Measurement Heart [id number] <Conclusion> Normal sinus rhythm Nonspecific T wave abnormality Abnormal ECG
--- NOTE | 2018-12-11 15:31 | CT ---
Date of service: 12/11/2018 PROCEDURE: CT Lumbar Spine without contrast HISTORY: back pain, COMPARISON: None available. TECHNIQUE: Axial computed tomography images were obtained of the lumbar spine without the use of intravenous contrast. Coronal and sagittal reformatted images were created and reviewed. Radiation dose: Total exam DLP = 1771.72 mGy-cm. This CT exam was performed using one or more of the following dose reduction techniques: Automated exposure control, adjustment of the mA and/or kV according to patient size, and/or use of iterative reconstruction technique. FINDINGS: VERTEBRAE: The vertebral bodies are maintained in height. The transverse processes and posterior elements are intact. There is no lytic or blastic osseous lesion. DISCS/SPINAL CANAL/NEURAL FORAMINA: L1-2: Unremarkable. L2-3: Unremarkable. L3-4: Minimal diffuse disc bulge. Preservation of disc space height. No focal herniation. No central spinal or neural foraminal stenosis. L4-5: Loss in height of the intervertebral disc space with associated vacuum disc phenomenon. Diffuse disc bulge. No focal disc herniation. No central spinal stenosis. Moderate bilateral neural foraminal stenosis. L5-S1: Loss in height of the intervertebral disc space with associated vacuum disc phenomenon. Diffuse disc bulge. No focal disc herniation. No central spinal stenosis. Moderate left and mild right neural foraminal stenosis PARASPINAL SOFT TISSUES: Bilateral small nonobstructing renal calculi. Retroperitoneal lymphadenopathy. Pelvic lymphadenopathy. There is a left-sided pelvic node measuring up to 4 cm in short axis. OTHER FINDINGS: None. IMPRESSION: Multilevel degenerative disc disease with disc bulge at L3-4 through L5-S1. Multilevel neural foraminal stenosis. No fracture/dislocation. Retroperitoneal and pelvic lymphadenopathy of uncertain etiology or significance. Further evaluation is advised. The preliminary findings for this examination were reported by [facility] Radiology at 12:45 a.m. on 12/11/2018. There is discordance of this report with the preliminary findings. Presence of retroperitoneal and pelvic lymphadenopathy was not described in the preliminary report of this examination.
== END 2018-12-11 02:27 | disposition home or self-care (01) ==
LOC: C.ER 22:28
DX: M79.605 Pain in left leg (principal); M54.9 Dorsalgia, unspecified; N18.9 Chronic kidney disease, unspecified; Z87.442 Personal history of urinary calculi

== ENCOUNTER 2018-12-21 20:31 | Emergency (ER) | payer OTHER, BC ==
[2018-12-21 20:32] VITALS: BMI 31.1
[2018-12-21 20:41] VITALS: RESP 16
--- NOTE | 2018-12-21 20:48 | C.PDOC ---
History Of Present Illness 43 year old male with PMHx of anxiety presents to the ED for evaluation status post mechanical injury sustained yesterday. Reports he slipped on a carpet and fell down three stairs at work. States he hit the back of his head on the stairs. Denies any LOC. Patient is currently complaining of right sided rib pain, upper back pain, right wrist and right ankle pain. Reports he had a laparoscopic cholecystectomy one month ago and is concerned because he fell on that side. States he took one Percocet for the pain with minimal relief. Also notes he has an upcoming MRI of lumbar spine scheduled for 12/23/18 for chronic low back pain with sciatica. Able to ambulate without difficulty or assistance. Denies any nausea, vomiting, diarrhea, dizziness, headache, vision changes, saddle anesthesia, bowel/bladder incontinence, chest pain, SOB, or any other symptoms. - HPI Time Seen by Provider: 12/21/18 20:43 Chief Complaint (Nursing): Trauma History Per: Patient History/Exam Limitations: no limitations Onset/Duration Of Symptoms: Days (1) Injury Occurred (Timing): Days Ago: (1) - Fall Fall:Prior To Injury: Other (missed step and fell ) Past Medical History Reviewed: Historical Data, Nursing Documentation, Vital Signs Vital Signs: Last Vital Signs Temp 98.1 F 12/21/18 20:41 Pulse 95 H 12/21/18 20:41 Resp 16 12/21/18 20:41 BP 120/74 12/21/18 20:41 Pulse Ox 96 12/21/18 20:41 - Medical History PMH: Anemia (hx blood transfusions), Anxiety, Back Problems, Gall Bladder Disease (GB removed), Kidney Stones, Malignancy (lymphoma), Chronic Kidney Disease Surgical History: Cholecystectomy ( tracie. 09/30/2018) Family History: States: No Known Family Hx - Social History Hx Tobacco Use: No Hx Alcohol Use: No Hx Substance Use: No - Immunization History Hx Tetanus Toxoid Vaccination: No Hx Influenza Vaccination: No Hx Pneumococcal Vaccination: No Review Of Systems Except As Marked, All Systems Reviewed And Found Negative. Constitutional: Negative for: Fever, Chills Eyes: Negative for: Vision Change ENT: Negative for: Nose Congestion, Throat Pain Cardiovascular: Negative for: Chest Pain, Palpitations, Light Headedness Respiratory: Negative for: Cough, Shortness of Breath Gastrointestinal: Negative for: Nausea, Vomiting, Abdominal Pain, Diarrhea, Constipation Musculoskeletal: Positive for: Back Pain (bilateral upper trapezius pain), Other (right rib pain, right ankle pain, right wrist pain ). Negative for: Neck Pain Skin: Positive for: Bruising. Negative for: Rash Neurological: Negative for: Weakness, Numbness, Headache, Dizziness Physical Exam - Physical Exam Appears: Well, Non-toxic, No Acute Distress Skin: Warm, Dry, Ecchymosis (right posterior inferior ribs ) Head: Atraumatic, Normacephalic Eye(s): bilateral: Normal Inspection, PERRL, EOMI Ear(s): Bilateral: Normal (no hemotypanum) Nose: Normal Neck: Normal ROM, Trachea Midline, No Midline Cervical Tenderness, Paracervical Tenderness (mild right sided paraspinal cervical tenderness), No Step Off Deformity, Other ( muscular tenderness over upper trapezius B/L) Chest: Tenderness (right lateral inferior ribs) Cardiovascular: Rhythm Regular Respiratory: Normal Breath Sounds, No Rales, No Rhonchi, No Wheezing Gastrointestinal/Abdominal: Soft, No Tenderness, No Guarding, No Rebound Back: No Normal Inspection, No CVA Tenderness, No Vertebral Tenderness, Other (ecchymosis as stated in skin exam) Extremity: Normal ROM (pain on ROM of right wrist and ankle), No Tenderness, Capillary Refill (<2s), No Deformity, No Swelling Extremity: Bilateral: Atraumatic, No Pedal Edema, Normal Color And Temperature, Normal ROM Pulses: Left Radial: Normal, Right Radial: Normal, Left Dorsalis Pedis: Normal, Right Dorsalis Pedis: Normal Neurological/Psych: Oriented x3, Normal Speech, Normal Motor, Normal Sensation Gait: Steady (ambulating without difficulty) ED Course And Treatment O2 Sat by Pulse Oximetry: 96 (RA) Pulse Ox Interpretation: Normal - CT Scan/US CT HEAD Other Rad Studies (CT/US): Read By Radiologist, Radiology Report Reviewed CT/US Interpretation: Name:ROMAN CHA Exam Date:Dec 21, 2018 9:27:58 PM EST. Modality Type:CT. Description:CT - BRAIN. Gender:M Laterality:Not applicable. :73 Referring Physician:CHATO WANG PA-C. EXAM: CT Head without Intravenous Contrast. CLINICAL HISTORY: Headache. TECHNIQUE: Axial computed tomography images of the head/brain without intravenous contrast. 0.00 mGy-cm. COMPARISON: None provided. FINDINGS: BRAIN. No acute intraparenchymal hemorrhage. No mass lesion. No CT evidence for acute territorial infarct. No midline shift or extra- axial collections. VENTRICLES: No hydrocephalus. ORBITS: The orbits are unremarkable. SINUSES AND MASTOIDS: The paranasal sinuses and mastoid air cells are clear. BONES: No fracture. SOFT TISSUES: Unremarkable. IMPRESSION: No acute intracranial abnormality. . Electronically signed on Dec 21, 2018 9:52:23 PM EST by: Frederick Brantley M.D., Certified by [facility], Diagnostic Radiology CT C-SPINE Other Rad Studies (CT/US): Read By Radiologist, Radiology Report Reviewed CT/US Interpretation: Name:ROMAN CHA Exam Date:Dec 21, 2018 9:30:26 PM EST. Modality Type:CT\OT. Description:CT - CERVICAL SPINE WITH CORONAL AND SAGITTAL MPRS. Gender:M Laterality:Not applicable. :73 Referring Physician:CHATO WANG PA-C. EXAM: CT Cervical Spine Without IV contrast. CLINICAL HISTORY: Trauma. TECHNIQUE: Axial computed tomography images of the cervical spine without intravenous contrast. Sagittal and coronal reformatted images were generated. COMPARISON: None provided. FINDINGS: ALIGNMENT: Bony alignment is anatomic. DEGENERATIVE CHANGES: There is hypertrophic and degenerative change with disc space narrowing at the C5-C6 and C6-C7 levels. SOFT TISSUES: The prevertebral soft tissues are within normal limits. BONES: No acute fracture or aggressive appearing osseous lesion. IMPRESSION: No acute cervical spine abnormality. Hypertrophic and degenerative change C5-C6 and C6-C7 levels. . Electronically signed on Dec 21, 2018 9:55:07 PM EST by: Frederick Brantley M.D., Certified by [facility], Diagnostic Radiology. Medical Decision Making Medical Decision Making: Plan - CT C-spine - CT head - XR right ankle - XR B/L ribs - XR right wrist Xrays reviewed by me, negative for acute fracture or dislocation CT head and C-spine negative for acute abnormality as read by [facility] Bedside FAST ultrasound exam performed by me, supervised by ED attending Dr. Howard. No free fluid visualized. Patient advised to followup with orthopedics and PMD, and obtain MRI of lumbar spine as scheduled. Diagnostic testing results and plan of care discussed with patient. Strict instructions given regarding prescription use, importance of followup, and signs/symptoms to return to ER including bowel/bladder incontinence, saddle anesthesia, vision changes, worsening pain, dizziness, chest pain, N/V, or any other new/worsening symptoms. Pt verbalized understanding of discussion. Patient is A&Ox3, ambulating with steady gait, with vital signs stable for discharge. Disposition - Disposition Referrals: [facility] at [facility] [Outside] Azael Watkins MD [Staff Provider] - Disposition: HOME/ ROUTINE Disposition Time: 22:20 Condition: IMPROVED Additional Instructions: Patient Roman Cha was seen here at [facility] on 12/21/2018 for evaluation of injuries sustained from a work injury that occurred on 12/20/2018. Lidoderm patch on affected area once daily, 12 hours on, 12 hours off Ibuprofen every 8 hours as needed for pain Rest, no strenuous activity No heavy lifting Followup with orthopedics within 2 days Followup with primary doctor within 2 days Return to ER for any new/worsening symptoms Prescriptions: Ibuprofen [Motrin Tab] 600 mg PO Q8 #30 tab Lidocaine 5% [Lidoderm] 1 ea TD DAILY PRN #30 patch PRN Reason: Pain, Mild (1-3) Instructions: Muscle Strain, Bruised Rib (DC), Closed Head Injury Forms: General Discharge Instructions, [facility] ([place]ese), Work Excuse - Clinical Impression Clinical Impression: Fall, Closed head injury, Bruised rib, Wrist sprain, Ankle sprain - PA / SENIOR PRODUCT DEVELOPMENT SCIENTIST / Resident Statement MD/DO has reviewed & agrees with the documentation as recorded. - Scribe Statement The provider has reviewed the documentation as recorded by the Scribe Selin Almaguer All medical record entries made by the Scribe were at my direction and personally dictated by me. I have reviewed the chart and agree that the record accurately reflects my personal performance of the history, physical exam, medical decision making, and the department course for this patient. I have also personally directed, reviewed, and agree with the discharge instructions and disposition. Procedure: Bedside Ultrasound - Time Performed Time Performed: 22:00 - Time Out Time Out: Side verified, Site verified, Patient ID confirmed - Type of Ultrasound Type of Ultrasound:: Trauma(FAST) - Consent Obtained Consent obtained: Verbal - Performed by Performed by: Mid-level Provider (supervised by ED attending Dr Howard) - Indication Indications:: Trauma - Clinical Concern Clinical Concern: Intra-abd. fluid - Tauma(FAST) Tauma(FAST): Normal - Patient tolerated procedure Patient Tolerated Procedure:: Well
[2018-12-21] MEDS ORDERED: Lidocaine 5% Patch TD STA (22:18)
[2018-12-21] MEDS ORDERED: Lidocaine 5% Patch TD ONE (22:22)
[2018-12-21 22:27] VITALS: BP 114/71; PULSE 82; TEMP 98.4
--- NOTE | 2018-12-22 10:37 | RAD ---
Date of service: 12/21/2018 PROCEDURE: Radiographs of the chest and bilateral ribs HISTORY: trauma yest., pain to bilateral ribs COMPARISON: Portable chest 04/19/2018. TECHNIQUE: Frontal radiograph of the chest and multiple oblique radiographs of the bilateral ribs were obtained. FINDINGS: RIGHT RIBS: No fracture or focal lesion visualized. LEFT RIBS: No fracture or focal lesion visualized. LUNGS: Clear. PLEURA: No pneumothorax or pleural fluid. CARDIOVASCULAR: Normal cardiac size. No pulmonary vascular congestion. No aortic atherosclerotic calcification present OTHER FINDINGS: None. IMPRESSION: Unremarkable radiographs of the chest and bilateral ribs. No rib fracture.
--- NOTE | 2018-12-22 10:40 | RAD ---
Date of service: 12/21/2018 PROCEDURE: Right Ankle Radiographs. HISTORY: trauma yest., right wrist pain COMPARISON: None available. FINDINGS: BONES: Normal. No fracture. JOINTS: Normal. No osteoarthritis. Ankle mortise maintained. Talar dome intact SOFT TISSUES: Normal. OTHER FINDINGS: None. IMPRESSION: Normal right ankle radiographs.
--- NOTE | 2018-12-22 10:40 | RAD ---
Date of service: 12/21/2018 PROCEDURE: Right Wrist Radiographs. HISTORY: trauma yest., right wrist pain COMPARISON: None. FINDINGS: BONES: No acute fracture or destructive bony lesion identified. No carpal bone fracture appreciable including the navicular bone. JOINTS: Normal. No dislocation. SOFT TISSUES: Normal. OTHER FINDINGS: None. IMPRESSION: Normal right wrist radiographs.
--- NOTE | 2018-12-22 13:11 | CT ---
Date of service: 12/21/2018 PROCEDURE: CT HEAD WITHOUT CONTRAST. HISTORY: headache COMPARISON: Head CT without contrast 12/06/2016. TECHNIQUE: Axial computed tomography images were obtained through the head/brain without intravenous contrast. Radiation dose: Total exam DLP = 1119.83 mGy-cm. This CT exam was performed using one or more of the following dose reduction techniques: Automated exposure control, adjustment of the mA and/or kV according to patient size, and/or use of iterative reconstruction technique. FINDINGS: HEMORRHAGE: No intracranial hemorrhage. BRAIN: Normal connolly-white matter differentiation and density are appreciated throughout the cerebrum and cerebellum with the brainstem appearing unremarkable as well. There is no mass effect. There is no suspicious extra-axial fluid collection and the midline brain anatomy appears diffusely unremarkable. VENTRICLES: Unremarkable. No hydrocephalus. CALVARIUM: Unremarkable. PARANASAL SINUSES: Unremarkable as visualized. No significant inflammatory changes. MASTOID AIR CELLS: Unremarkable as visualized. No inflammatory changes. OTHER FINDINGS: None. IMPRESSION: Stable, unremarkable unenhanced head CT. Concordant preliminary report from Ozzy, 12/21/2018, 9:52 p.m..
--- NOTE | 2018-12-22 13:15 | CT ---
Date of service: 12/21/2018 PROCEDURE: CT Cervical Spine without contrast HISTORY: neck pain COMPARISON: None available. TECHNIQUE: Axial computed tomography images were obtained of the cervical spine without the use of intravenous contrast. Coronal and sagittal reformatted images were created and reviewed. Radiation dose: Total exam DLP = 654.39 mGy-cm. This CT exam was performed using one or more of the following dose reduction techniques: Automated exposure control, adjustment of the mA and/or kV according to patient size, and/or use of iterative reconstruction technique. FINDINGS: VERTEBRAE: Straightened curvature. No spondylolisthesis or fracture identified. Mild to moderate spondylosis identified at inferior cervical spine with limited facet joint degenerative changes are present diffusely. The odontoid process is intact with C1-2 articulation normal as well as craniocervical junction. DISCS/SPINAL CANAL/NEURAL FORAMINA: Mild left C6 root foraminal degenerative neural foraminal stenosis caused by uncovertebral and facet joint degenerative changes. Remaining neural foramina are widely patent. No bony central canal stenosis throughout. No gross disc herniation appreciable at this time. PARASPINAL SOFT TISSUES: Unremarkable. OTHER FINDINGS: None. IMPRESSION: Straightened cervical curvature without fracture or spondylolisthesis. Mild spondylosis. Limited C6 root neural foraminal degenerative stenosis. Preliminary report provided by [facility], 12/21/2018, 9:55 p.m..
[2018-12-23 03:40] VITALS: O2SAT 96
== END 2018-12-21 22:32 | disposition home or self-care (01) ==
LOC: C.ER 20:31
DX: S20.211A Contusion of right front wall of thorax, initial encounter (principal); S63.501A Unspecified sprain of right wrist, initial encounter; S93.401A Sprain of unspecified ligament of right ankle, initial encounter; W10.9XXA Fall (on) (from) unspecified stairs and steps, initial encounter; Y92.89 Other specified places as the place of occurrence of the external cause; Y99.0 Civilian activity done for income or pay

== ENCOUNTER 2019-01-11 22:12 | Emergency (ER) | payer BC ==
[2019-01-11 22:13] VITALS: BMI 31.1
== END 2019-01-11 22:38 | disposition left against medical advice (07) ==
LOC: C.ER 22:12
DX: Z02.89 Encounter for other administrative examinations (principal)

== ENCOUNTER 2019-01-20 01:44 | Emergency (ER) | payer BC ==
[2019-01-20 01:55] VITALS: BP 114/61; RESP 23; TEMP 98.3; O2SAT 95
[2019-01-20 02:06] VITALS: BMI 34.0
[2019-01-20 02:08] VITALS: PULSE 75
--- NOTE | 2019-01-20 02:11 | C.PDOC ---
History Of Present Illness 43 year old male presents to the ED c/o chest discomfort and cold symptoms. Patient reports he wanted to be evaluated, he is scheduled for a CT scan in the am. Patient denies fever, chills, nausea, vomit, SOB, palpitations, rash, weakness, numbness. Chief Complaint (Nursing): Chest Pain History Per: Patient History/Exam Limitations: no limitations Onset/Duration Of Symptoms: Hrs Current Symptoms Are (Timing): Still Present Quality: "Pain" Recent travel outside of the [place]: No Additional History Per: Patient Past Medical History Reviewed: Historical Data, Nursing Documentation, Vital Signs Vital Signs: Last Vital Signs Temp 98.3 F 01/20/19 01:54 Pulse 75 01/20/19 02:07 Resp 23 01/20/19 01:54 BP 114/61 01/20/19 01:54 Pulse Ox 95 01/20/19 01:54 - Medical History PMH: Anemia (hx blood transfusions), Anxiety, Back Problems, Gall Bladder Disease (GB removed), Kidney Stones, Malignancy (lymphoma), Chronic Kidney Disease Surgical History: Cholecystectomy ( tracie. 09/30/2018) Family History: States: Unknown Family Hx - Social History Hx Tobacco Use: No Hx Alcohol Use: No Hx Substance Use: No - Immunization History Hx Tetanus Toxoid Vaccination: No Hx Influenza Vaccination: No Hx Pneumococcal Vaccination: No Review Of Systems Constitutional: Negative for: Fever, Chills Cardiovascular: Positive for: Chest Pain. Negative for: Palpitations Respiratory: Negative for: Cough, Shortness of Breath Gastrointestinal: Negative for: Nausea, Vomiting, Abdominal Pain Skin: Negative for: Rash Neurological: Negative for: Weakness, Numbness, Headache, Dizziness Physical Exam - Physical Exam Appears: Non-toxic, No Acute Distress Skin: Normal Color, Warm, Dry Head: Atraumatic, Normacephalic Eye(s): bilateral: Normal Inspection Oral Mucosa: Moist Neck: Normal ROM, Supple Chest: Symmetrical Cardiovascular: Rhythm Regular Respiratory: Normal Breath Sounds, No Rales, No Rhonchi, No Wheezing Gastrointestinal/Abdominal: Soft, No Tenderness, No Guarding, No Rebound Extremity: Normal ROM, No Tenderness, No Swelling Neurological/Psych: Oriented x3, Normal Speech, Normal Cognition Gait: Steady ED Course And Treatment ECG Rhythm: Sinus Rhythm ECG Interpretation: Normal, No Acute Changes Interpretation Of ECG: NSR, normal tracings O2 Sat by Pulse Oximetry: 95 (ON RA) Pulse Ox Interpretation: Normal Medical Decision Making Medical Decision Making: Patient refused to have blood work or CXR done only wished to have EKG done Disposition Counseled Patient/Family Regarding: Diagnosis - Disposition Referrals: [facility] at [facility] [Outside] Disposition Time: 02:10 Condition: STABLE Instructions: Chest Pain That Is Not Caused by the Heart (DC) Forms: [facility] (South Korean) - POA Present On Arrival: None - Clinical Impression Clinical Impression: Chest discomfort - Scribe Statement The provider has reviewed the documentation as recorded by the Scribe Asa Daniels All medical record entries made by the Scribe were at my direction and personally dictated by me. I have reviewed the chart and agree that the record accurately reflects my personal performance of the history, physical exam, medical decision making, and the department course for this patient. I have also personally directed, reviewed, and agree with the discharge instructions and disposition.
--- NOTE | 2019-01-20 12:56 | CARD ---
APPROVED REPORT Date of service: 01/20/2019 EKG Measurement Heart [id number] <Conclusion> Normal sinus rhythm Incomplete right bundle branch block Borderline ECG
== END 2019-01-20 02:23 | disposition home or self-care (01) ==
LOC: C.ER 01:44
DX: R07.9 Chest pain, unspecified (principal); N18.9 Chronic kidney disease, unspecified; Z85.72 Personal history of non-Hodgkin lymphomas; F17.210 Nicotine dependence, cigarettes, uncomplicated

== ENCOUNTER 2019-02-09 13:59 | Emergency (ER) | payer BC ==
[2019-02-09 13:59] VITALS: BMI 31.1
[2019-02-09 14:23] VITALS: RESP 18
[2019-02-09 15:03] VITALS: O2SAT 98
--- NOTE | 2019-02-09 15:34 | RAD ---
Date of service: 02/09/2019 HISTORY: sob COMPARISON: Comparison is made with 12/21/2018 TECHNIQUE: Chest PA and lateral views FINDINGS: LUNGS: No evidence of new infiltrate or consolidation in the lungs. Prominent reticular opacities again noted bilaterally. PLEURA: No significant pleural effusion identified. No pneumothorax apparent. CARDIOVASCULAR: No aortic atherosclerotic calcification present. Normal cardiac size. No pulmonary vascular congestion. OSSEOUS STRUCTURES: No significant abnormalities. VISUALIZED UPPER ABDOMEN: Normal. OTHER FINDINGS: None. IMPRESSION: No significant interval changes noted since the prior study.
--- NOTE | 2019-02-09 15:34 | C.PDOC ---
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 He states that he ran out of Clonazepam one week ago and is going to get a refill this upcoming week. Patient admits current symptoms are typical of his panic attacks/anxiety. He deneis chest pain, palpitations, cough, fever, abdominal pain, nausea, vomiting, diarrhea, headache, dizziness. Time Seen by Provider: 02/09/19 14:28 Chief Complaint (Nursing): Shortness Of Breath History Per: Patient History/Exam Limitations: no limitations Onset/Duration Of Symptoms: Hrs (1) Current Symptoms Are (Timing): Still Present Quality: Tightness Current Respiratory Medications: See Home Med List Severity: Moderate Associated Symptoms: denies: Fever, Chills, Chest Pain Past Medical History Reviewed: Historical Data, Nursing Documentation, Vital Signs Vital Signs: Last Vital Signs Temp 98 F 02/09/19 14:16 Pulse 65 02/09/19 14:16 Resp 18 02/09/19 14:30 BP 144/89 02/09/19 14:16 Pulse Ox 98 02/09/19 14:30 - Medical History PMH: Anemia (hx blood transfusions), Anxiety, Back Problems, Gall Bladder Disease (GB removed), Kidney Stones, Malignancy (lymphoma), Chronic Kidney Disease Surgical History: Cholecystectomy ( tracie. 09/30/2018) Family History: States: No Known Family Hx - Social History Hx Tobacco Use: No Hx Alcohol Use: No Hx Substance Use: No - Immunization History Hx Tetanus Toxoid Vaccination: No Hx Influenza Vaccination: No Hx Pneumococcal Vaccination: No Review Of Systems Constitutional: Negative for: Fever, Chills Cardiovascular: Positive for: Other (chest tightness). Negative for: Chest Pain Respiratory: Positive for: Shortness of Breath. Negative for: Cough Gastrointestinal: Negative for: Nausea, Vomiting, Abdominal Pain, Diarrhea Neurological: Negative for: Headache, Dizziness Psych: Positive for: Anxiety. Negative for: Depression, Psychosis, Suicidal ideation Physical Exam - Physical Exam Appears: Well, Non-toxic, No Acute Distress, Other (anxious appearing, speaking in full sentences) Skin: Warm, Dry, No Rash Head: Atraumatic, Normacephalic Eye(s): bilateral: Normal Inspection Oral Mucosa: Moist Tongue: Normal Appearing, No Swelling Lips: Normal Appearing, No Swelling Throat: Normal, No Erythema, No Exudate, No Drooling Neck: Supple Lymphatic: Adenopathy (Left upper cervical lymphadenopathy ) Chest: Symmetrical Cardiovascular: Rhythm Regular, No Murmur Respiratory: Normal Breath Sounds, No Accessory Muscle Use, No Rales, No Rhonchi, No Wheezing Gastrointestinal/Abdominal: Normal Exam, Bowel Sounds, Soft, No Tenderness Extremity: Normal ROM, No Pedal Edema, No Calf Tenderness Pulses: Left Dorsalis Pedis: Normal, Right Dorsalis Pedis: Normal Neurological/Psych: Oriented x3 Gait: Steady ED Course And Treatment O2 Sat by Pulse Oximetry: 98 (RA) Pulse Ox Interpretation: Normal - Other Rad CXR X-Ray: Viewed By Me, Read By Radiologist Interpretation: Accession No. : [id number]. Patient Name / ID : SEMAJ SOMERS / [id number]. Exam Date : 02/09/2019 14:47:47 ( Approved ). Study Comment : Sex / Age : M / 43Y. Creator : Anne Marie Alvarez MD. Dictator : Anne Marie Alvarez MD. Nailhead Puncher : Rabbet Operator : Anne Marie Alvarez MD. Approver2 : Report Date : 02/09/2019 15:30:35. My Comment : . Date of service: 02/09/2019. HISTORY: sob. COMPARISON: Comparison is made with 12/21/2018. TECHNIQUE: Chest PA and lateral views. FINDINGS: LUNGS: No evidence of new infiltrate or consolidation in the lungs. Prominent reticular opacities again noted bilaterally. PLEURA: No significant pleural effusion identified. No pneumothorax apparent. CARDIOVASCULAR: No aortic atherosclerotic calcification present. Normal cardiac size. No pulmonary vascular congestion. OSSEOUS STRUCTURES: No significant abnormalities. VISUALIZED UPPER ABDOMEN: Normal. OTHER FINDINGS: None. IMPRESSION: No significant interval changes noted since the prior study. Progress Note: Patient given PO Klonopin. CXR ordered and reviewed. Patient has malignancy history, which is being closely followed by his oncologist and PMD. He confirms current symptoms are consistent with anxiety/panic. Vitals and physical exam WNL. Reevaluation Time: 16:20 Reassessment Condition: Improved (Patient reassessed, is resting comfortably and states symptoms have resolved. Vitals WNL. Patient is comfortable being discharged home. He was given Rx for Konopin for several days, and instructed to follow up with PMD/fill his Rx in 1-2 days. He understands he should return to ED if symptoms worsen.) Disposition Counseled Patient/Family Regarding: Diagnosis, Need For Followup, Rx Given - Disposition Referrals: Ki Villasenor [Staff Provider] - Disposition: HOME/ ROUTINE Disposition Time: 16:20 Condition: STABLE Prescriptions: Clonazepam [Klonopin] 1 mg PO BID PRN #4 tab PRN Reason: Anxiety Instructions: Anxiety, Adult (DC) Forms: [employer] (Macedonian) Print Language: GERMAN - Clinical Impression Clinical Impression: Anxiety - Scribe Statement The provider has reviewed the documentation as recorded by the Treibroma Almaguer All medical record entries made by the Treibroma were at my direction and per sonally dictated by me. I have reviewed the chart and agree that the record accurately reflects my personal performance of the history, physical exam, medical decision making, and the department course for this patient. I have also personally directed, reviewed, and agree with the discharge instructions and disposition.
[2019-02-09 15:47] VITALS: BP 116/67; PULSE 68; TEMP 98.7
--- NOTE | 2019-02-11 20:50 | CARD ---
APPROVED REPORT Date of service: 02/09/2019 EKG Measurement Heart [id number] AR [id number] <Conclusion> Normal sinus rhythm Incomplete right bundle branch block Borderline ECG
== END 2019-02-09 16:30 | disposition home or self-care (01) ==
LOC: C.ER 13:59
DX: F41.9 Anxiety disorder, unspecified (principal)

== ENCOUNTER → 2019-02-17 15:17 | Emergency (ER) | payer BC ==
[2019-02-17 15:17] VITALS: BMI 31.1
== END | disposition left against medical advice (07) ==
LOC: C.ER 15:17
DX: Z02.89 Encounter for other administrative examinations (principal)

== ENCOUNTER 2019-02-19 22:56 | Emergency (ER) | payer BC ==
[2019-02-19 22:57] VITALS: BMI 31.1
[2019-02-19 23:06] VITALS: BP 116/76; PULSE 76; TEMP 97.8; O2SAT 97
--- NOTE | 2019-02-19 23:36 | C.PDOC ---
History Of Present Illness 43 year old male presents to the ED for evaluation of non healing right buttock abscess that has been intermittently draining for the past week. Patient reports now area has become more painful worse when seating down. Patient states he has I&D surgically done to the area years ago. Patient denies fever, chills, rash, foul odor. Time Seen by Provider: 02/19/19 23:08 Chief Complaint (Nursing): Abnormal Skin Integrity History Per: Patient History/Exam Limitations: no limitations Onset/Duration Of Symptoms: Days, Intermittent Episodes Current Symptoms Are (Timing): Still Present Location Of Injury: Right: Buttock Quality Of Symptoms: Painful, Swollen Recent travel outside of the [place]: No Additional History Per: Patient Past Medical History Reviewed: Historical Data, Nursing Documentation, Vital Signs Vital Signs: Last Vital Signs Temp 97.8 F 02/19/19 23:03 Pulse 76 02/19/19 23:03 Resp 14 02/19/19 23:03 BP 116/76 02/19/19 23:03 Pulse Ox 97 02/19/19 23:03 - Medical History PMH: Anemia (hx blood transfusions), Anxiety, Back Problems, Gall Bladder Disease (GB removed), Kidney Stones, Malignancy (lymphoma), Chronic Kidney Disease Surgical History: Cholecystectomy (lap. hodges. 09/30/2018) Family History: States: Unknown Family Hx - Social History Hx Tobacco Use: No Hx Alcohol Use: No Hx Substance Use: No - Immunization History Hx Tetanus Toxoid Vaccination: No Hx Influenza Vaccination: No Hx Pneumococcal Vaccination: No Review Of Systems Constitutional: Negative for: Fever, Chills Gastrointestinal: Negative for: Nausea, Vomiting, Abdominal Pain Musculoskeletal: Negative for: Leg Pain Skin: Positive for: Other (abscess) Neurological: Negative for: Weakness, Numbness Physical Exam - Physical Exam Appears: Non-toxic, No Acute Distress Skin: Normal Color, Warm, Dry Head: Atraumatic, Normacephalic Eye(s): bilateral: Normal Inspection Neck: Normal ROM, Supple Extremity: Normal ROM, Other (right buttock, surgical scar near midline. Small open wound, pea sized to the area. No active draining, active bleeding, fluctuance, or perianal involvement, erythema) Neurological/Psych: Oriented x3, Normal Speech, Normal Cognition Gait: Steady ED Course And Treatment O2 Sat by Pulse Oximetry: 97 (On RA) Pulse Ox Interpretation: Normal Progress Note: Plan: - Keflex 500 mg PO. Patient was given first dose of antibiotics in the ED, given prescription to finish at home. Patient advised to follow up with PMD and keep area cleaned. Disposition Counseled Patient/Family Regarding: Need For Followup, Rx Given - Disposition Disposition: HOME/ ROUTINE Disposition Time: 23:32 Condition: STABLE Additional Instructions: Please follow up with PMD Take medications as directed Return to ER if worse Prescriptions: Cephalexin [Keflex] 500 mg PO QID #20 capsule Ibuprofen [Motrin Tab] 800 mg PO QID #24 tab Instructions: Wound Infection Forms: [employer] (Frisian) - Clinical Impression Clinical Impression: Boil of buttock - PA / STONE CRUSHER OPERATOR / Resident Statement MD/DO has reviewed & agrees with the documentation as recorded. - Scribe Statement The provider has reviewed the documentation as recorded by the Scribe Asa Daniels All medical record entries made by the Scribe were at my direction and personally dictated by me. I have reviewed the chart and agree that the record accurately reflects my personal performance of the history, physical exam, medical decision making, and the department course for this patient. I have also personally directed, reviewed, and agree with the discharge instructions and disposition.
[2019-02-19 23:42] VITALS: RESP 20
== END 2019-02-19 23:42 | disposition home or self-care (01) ==
LOC: C.ER 22:56
DX: L02.32 Furuncle of buttock (principal)

== ENCOUNTER 2019-03-03 21:15 | Emergency (ER) | payer BC ==
[2019-03-03 21:16] VITALS: BMI 31.1
[2019-03-03 21:30] VITALS: RESP 16; O2SAT 97
--- NOTE | 2019-03-03 23:14 | C.PDOC ---
History Of Present Illness 43 year old male presents with pain to the right shoulder/arm after waking up. 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 He applied heating pad and took tylenol with relief. Patient had chemo for lymphoma recently with Dr. Sanchez and wants his outpatient labs done tonight but is pending following up with Dr. Sanchez in a week. Time Seen by Provider: 03/03/19 23:01 Chief Complaint (Nursing): Chest Pain History Per: Patient History/Exam Limitations: no limitations Onset/Duration Of Symptoms: Hrs Current Symptoms Are (Timing): Still Present Exacerbating Factors: None Alleviating Factors: None Recent travel outside of the [place]: No Past Medical History Reviewed: Historical Data, Nursing Documentation, Vital Signs Vital Signs: Last Vital Signs Temp 98.1 F 03/03/19 21:27 Pulse 74 03/03/19 21:27 Resp 16 03/03/19 21:27 BP 102/67 03/03/19 21:27 Pulse Ox 97 03/03/19 21:27 - Medical History PMH: Anemia (hx blood transfusions), Anxiety, Back Problems, Gall Bladder Disease (GB removed), Kidney Stones, Malignancy (lymphoma), Chronic Kidney Disease Surgical History: Cholecystectomy (lap. hodges. 09/30/2018) Family History: States: Unknown Family Hx - Social History Hx Tobacco Use: No Hx Alcohol Use: No Hx Substance Use: No - Immunization History Hx Tetanus Toxoid Vaccination: No Hx Influenza Vaccination: No Hx Pneumococcal Vaccination: No Review Of Systems Constitutional: Negative for: Fever, Chills Cardiovascular: Negative for: Chest Pain, Palpitations Respiratory: Negative for: Cough, Shortness of Breath Gastrointestinal: Negative for: Nausea, Vomiting Musculoskeletal: Positive for: Shoulder Pain Neurological: Negative for: Weakness, Numbness Physical Exam - Physical Exam Appears: Non-toxic, Other (Large male. No ETOH on breath) Skin: Normal Color, Warm Head: Atraumatic, Normacephalic Eye(s): bilateral: Other (pin point pupils) Oral Mucosa: Moist Neck: Normal, Supple Chest: Symmetrical, No Tenderness Cardiovascular: Rhythm Regular Respiratory: Normal Breath Sounds, No Rales, No Rhonchi, No Wheezing Gastrointestinal/Abdominal: Soft, No Tenderness Extremity: Normal ROM (x4), No Tenderness (Shoulder) Pulses: Left Radial: Normal, Right Radial: Normal Neurological/Psych: Oriented x3, Normal Speech ED Course And Treatment ECG: Interpreted By Me ECG Rhythm: Sinus Rhythm ECG Interpretation: Normal Rate From EC O2 Sat by Pulse Oximetry: 97 Pulse Ox Interpretation: Normal Medical Decision Making Medical Decision Making: R shoulder musculo-skeletal pain relieved with tylenol/heat pads this AM worked the day as a [employer] ([employer]) without discomfort Wants f/u blood work done for Chemo done 1 week ago defer opt f/u labs and LOW susp of ACS (normal EKG) nor PE d-dimer will be elev in Chemo pt and of little clinical assistance pt reassured, opt f/u with Dr. Carmona as planned in 1 week. Disposition Doctor Will See Patient In The: Office Counseled Patient/Family Regarding: Studies Performed, Diagnosis - Disposition Referrals: Ki Villasenor [Staff Provider] - Frederick Sanchez MD [Staff Provider] - Disposition: HOME/ ROUTINE Disposition Time: 23:14 Condition: GOOD Additional Instructions: follow-up w Dr. Sanchez for lab tests following your Chemotherapy NORMAL EKG today Instructions: Shoulder Pain (DC) Forms: [employer] (Romansh) - Clinical Impression Clinical Impression: Shoulder pain, right - Scribe Statement The provider has reviewed the documentation as recorded by the Scribroma Mcintosh All medical record entries made by the Scribe were at my direction and personally dictated by me. I have reviewed the chart and agree that the record accurately reflects my personal performance of the history, physical exam, medical decision making, and the department course for this patient. I have also personally directed, reviewed, and agree with the discharge instructions and disposition.
[2019-03-03 23:15] VITALS: BP 117/82; PULSE 72; TEMP 98.2
--- NOTE | 2019-03-05 03:08 | CARD ---
APPROVED REPORT Date of service: 03/03/2019 EKG Measurement Heart [id number] MD [id number] <Conclusion> Normal sinus rhythm Nonspecific intraventricular conduction delay Nonspecific T wave abnormality Abnormal ECG
== END 2019-03-03 23:15 | disposition home or self-care (01) ==
LOC: C.ER 21:15
DX: M25.511 Pain in right shoulder (principal); Z85.72 Personal history of non-Hodgkin lymphomas

== ENCOUNTER 2019-03-22 21:10 | Inpatient (IN) | payer BC ==
[2019-03-22 21:10] VITALS: BMI 31.1
--- NOTE | 2019-03-22 21:29 | C.PDOC ---
History Of Present Illness 43 year old male with a history of anemia, anxiety, lymphoma (currently on chemo with Dr. Brown, last chemo 1 month ago), and CKD presents to the emergency department with complaints of left upper extremity pain. Patient [place] that [place] the city and presented to [facility] on [address] in [place] where he had a doppler as well as CTs done which indicated DVT of the left subclavian to the left brachial. Team at [facility] recommended admission given pt has a port and DVT, pt declined and wanted to come to [facility] for admission. Pt was given lovenox injection prior to d/c from [facility] at 1500 today. Patient notes good strength, and states that the pain is only in that LUE area. He denies fever, chills, chest pain, shortness of breath, abdominal pain, focal neurologic deficits, and fall/trauma. Time Seen by Provider: 03/22/19 21:29 Chief Complaint (Nursing): Upper Extremity Problem/Injury History Per: Patient History/Exam Limitations: no limitations Onset/Duration Of Symptoms: Hrs Current Symptoms Are (Timing): Still Present Quality: "Pain" Past Medical History Reviewed: Historical Data, Nursing Documentation, Vital Signs Vital Signs: Last Vital Signs Temp 98.4 F 03/22/19 21: Pulse 79 03/22/19 21:22 Resp 18 03/22/19 21:22 BP 155/72 H 03/22/19 21:22 Pulse Ox 96 03/22/19 21:22 Primary Care Provider: Ki Villasenor - Medical History PMH: Anemia (hx blood transfusions), Anxiety, Back Problems, Gall Bladder Disease (GB removed), Kidney Stones, Malignancy (lymphoma), Chronic Kidney Disease Surgical History: Cholecystectomy (lap. tracie. 09/30/2018) Family History: States: No Known Family Hx - Social History Hx Tobacco Use: No Hx Alcohol Use: No Hx Substance Use: No - Immunization History Hx Tetanus Toxoid Vaccination: No Hx Influenza Vaccination: No Hx Pneumococcal Vaccination: No Review Of Systems Constitutional: Negative for: Fever, Chills Eyes: Negative for: Pain, Vision Change ENT: Negative for: Ear Pain, Nose Pain, Mouth Pain, Throat Pain Cardiovascular: Negative for: Chest Pain Respiratory: Negative for: Shortness of Breath Gastrointestinal: Negative for: Nausea, Vomiting, Abdominal Pain, Diarrhea Genitourinary: Negative for: Dysuria, Frequency, Incontinence Musculoskeletal: Positive for: Arm Pain. Negative for: Neck Pain, Shoulder Pain, Back Pain, Hand Pain, Leg Pain Neurological: Negative for: Weakness, Numbness, Headache Physical Exam - Physical Exam Appears: Well, Non-toxic, No Acute Distress Skin: Normal Color, Warm, Dry, No Rash Head: Atraumatic, Normacephalic Eye(s): bilateral: Normal Inspection, PERRL, EOMI Nose: Normal Oral Mucosa: Moist Throat: Normal, No Erythema, No Exudate, No Drooling Neck: Normal, Supple, Other (no meningeal signs) Lymphatic: Normal Exam, No Adenopathy Chest: Symmetrical, No Tenderness Cardiovascular: Rhythm Regular, No Murmur Respiratory: Normal Breath Sounds, No Rales, No Rhonchi, No Wheezing Gastrointestinal/Abdominal: Soft, No Tenderness, No Guarding, No Rebound Back: Normal Inspection, No CVA Tenderness, No Vertebral Tenderness Extremity: Normal ROM, No Tenderness, Capillary Refill (normal), Other (b/l UE good radial pulses, fully n/v intact w/ good strength 5/5) Pulses: Left Brachial: Normal, Left Radial: Normal, Right Radial: Normal Neurological/Psych: Oriented x3, Normal Speech, Normal Cognition, Normal Motor, Normal Sensation Gait: Steady ED Course And Treatment - Laboratory Results Result Diagrams: 03/22/19 22:05 03/22/19 22:05 O2 Sat by Pulse Oximetry: 96 (RA) Pulse Ox Interpretation: Normal Medical Decision Making Medical Decision Makin43 year old male with a history of anemia, anxiety, lymphoma (currently on chemo with Dr. Brown, last chemo 1 month ago), and CKD presents to the emergency department with complaints of left upper extremity pain. Patient was recommended admission at [facility], declined and decided to come to this ER. Notes was given Lovenox at 3PM prior to being discharged. On exam, pt without sob, in [facility], asks for his normal dose of percocet for his lymphoma pain. MDM: Left upper extremity DVT near port site. Plan: Blood Bank Type and Screen EKG Chemistry Bloodwork Percocet 1tab PO Tylenol 650mg PO 2216 CBC unremarkable appreciate consult w/ Nida Ochoa: to admit to his service pt in [facility], agreeable to plan. EK, nsr, no stemi Disposition - Disposition Disposition Time: 22:18 Condition: STABLE - Clinical Impression Clinical Impression: DVT of upper extremity (deep vein thrombosis) - Scribe Statement The provider has reviewed the documentation as recorded by the Scribe (Dannie Mcconnell) Provider Attestation: All medical record entries made by the Scribe were at my direction and person ally dictated by me. I have reviewed the chart and agree that the record accurately reflects my personal performance of the history, physical exam, medical decision making, and the department course for this patient. I have also personally directed, reviewed, and agree with the discharge instructions and disposition.
[2019-03-22] MEDS ORDERED: Oxycodone/Acetaminophen 5/325 mg Tab PO STA (21:42)
[2019-03-22] MEDS ORDERED: Oxycodone/Acetaminophen 5/325 mg Tab ONE (21:52)
[2019-03-22 22:08] LABS: BASO % 0.4 % (0.0-2.0); HEMOGLOBIN 13.1 g/dL (12.0-18.0); LYMPH # 0.3 K/uL (1.0-4.3); LYMPH % 3.1 % (20.0-40.0); MEAN CELL VOLUME 84.4 fL (80.0-94.0); MEAN CORPUSCULAR HEMOGLOBIN 28.6 pg (27.0-31.0); MEAN CORPUSCULAR HGB CONC 33.8 g/dL (33.0-37.0); MONO # 0.1 K/uL (0.0-0.8); MONO % 1.2 % (0.0-10.0); NEUT # 7.6 K/uL (1.8-7.0); NEUT % 95.3 % (50.0-75.0); PLATELET COUNT 211 K/uL (130-400); RBC 4.59 Mil/uL (4.40-5.90); RED CELL DISTRIBUTION WIDTH 14.2 % (11.5-14.5)
[2019-03-22 22:19] LABS: INR 1.2; PARTIAL THROMBOPLASTIN TIME 36.6 SECONDS (21-34)
[2019-03-22 22:20] LABS: ALB/GLOB RATIO 1.4 (1.0-2.1); ALBUMIN 4.5 g/dL (3.5-5.0); ALT/SGPT 32 U/L (21-72); AST/SGOT 28 U/L (17-59); BLOOD UREA NITROGEN 16 mg/dL (9-20); CALCIUM 9.6 mg/dl (8.6-10.4); GFR NON-AFRICAN AMERICAN > 60
[2019-03-22 22:33] LABS: LYMPHOCYTE 5 % (20-40); MONOCYTE 2 % (0-10); NEUTROPHIL 93 % (50-75); PLATELET ESTIMATE NORMAL (NORMAL); TOTAL CELLS COUNTED 100
--- NOTE | 2019-03-22 22:42 | CP.PCM.HP ---
<JordanScott perez - Last Filed: 03/22/19 22:58> History of Present Illness - History of Present Illness History of Present Illness: PGY-1 History and Physical [address] Armando Patient is a 43 year old male with PMHx lymphoma (currently on chemo), nephrolithiasis, anxiety, cholecystitis, who presents with complaints of left arm pain and found to have DVT at [facility] on [address] [place] [address] in [place] earlier today. Patient was initially diagnosed with Lymphoma 5-6 years ago, went into remission, and now has had recent recurrence, on chemotherapy with recent lymph node resection. Patient states that for the past week he has noticed pain in his left axilla and shoulder, with some swelling in the axilla. Patient denies history of DVT or PE in the past. Denies tobacco use. Patient went to [facility] ER [facility] today as [place] the city and they recommended admission, and patient opted to [facility] for admisison. Had CT angio done at [facility] which was negative for PE. Patient denies shortness of breath, dizziness, focal weakness, headache, nausea, vomiting. PMHx:lymphoma (currently on chemo), nephrolithiasis (requiring ureteral stents and lithotripsy in the past), anxiety, cholecystitis PSHx: cholecystectomy, chemo port placement x2 (bilateral), ureteral stents Allergies: Iodine/contrast dye - states had eye rash, but was years ago and has since been given contrast dye with benadryl pre-treatment with no reaction Social hx: Denies smoking, alcohol, drug use. Works in [place]. Family hx: Multiple family members with cancer including grandma and uncle - unsure what kind of cancer Medications: Klonopin 1mg BID prn anxiety, Motrin 800 mg Q6 prn PMD: Dr. Villasenor Heme/onc: Dr. Brown Present on Admission - Present on Admission Any Indicators Present on Admission: Yes History of DVT/PE: Yes Review of Systems - Constitutional Constitutional: absent: Chills, Fever - EENT Eyes: absent: Blurred Vision, Diplopia Nose/Mouth/Throat: absent: Nasal Congestion, Nasal Discharge - Cardiovascular Cardiovascular: absent: Chest Pain, Chest Pain at Rest, Dyspnea, Leg Edema, Lightheadedness, Palpitations, Pedal Edema - Respiratory Respiratory: absent: Cough, Dyspnea, Wheezing - Gastrointestinal Gastrointestinal: absent: Abdominal Pain, Diarrhea, Nausea, Vomiting - Genitourinary Genitourinary: absent: Dysuria, Flank Pain - Musculoskeletal Musculoskeletal: absent: Back Pain, Numbness, Tingling Additional comments: L axillary pain, swelling - Neurological Neurological: absent: Dizziness, Weakness - Psychiatric Psychiatric: absent: Anxiety, Depression - Hematologic/Lymphatic Hematologic: absent: Easy Bleeding, Easy Bruising, Lymphadenopathy (Recent lymph node resection L neck) Past Patient History - Infectious Disease Hx of Infectious Diseases: None - Past Medical History & Family History Past Medical History?: Yes - Past Social History Smoking Status: Light Smoker < 10 Cigarettes Daily - CARDIAC Hx Cardiac Disorders: No - PULMONARY Hx Respiratory Disorders: No - NEUROLOGICAL Hx Neurological Disorder: No - HEENT Hx HEENT Problems: No - RENAL Hx Chronic Kidney Disease: Yes Hx Kidney Stones: Yes - ENDOCRINE/METABOLIC Hx Endocrine Disorders: No - HEMATOLOGICAL/ONCOLOGICAL Hx Anemia: Yes (hx blood transfusions) - INTEGUMENTARY Hx Dermatological Problems: No - MUSCULOSKELETAL/RHEUMATOLOGICAL Hx Musculoskeletal Disorders: Yes - GASTROINTESTINAL Hx Gall Bladder Disease: Yes (GB removed) - GENITOURINARY/GYNECOLOGICAL Hx Genitourinary Disorders: No - PSYCHIATRIC Hx Anxiety: Yes Hx Substance Use: No - SURGICAL HISTORY Hx Cholecystectomy: Yes ( [facility]. 09/30/2018) - ANESTHESIA Hx Anesthesia: Yes Hx Anesthesia Reactions: No Hx Malignant Hyperthermia: No Meds Allergies/Adverse Reactions: Allergies Allergy/AdvReac Type Severity Reaction Status Date / Time FISH Allergy Verified 03/22/19 21:20 iodine Allergy Verified 03/22/19 21:20 IV DYE Allergy Uncoded 03/22/19 21:20 shrimp dye Allergy Uncoded 03/22/19 21:20 Physical Exam - Constitutional Appears: Non-toxic, No Acute Distress - Head Exam Head Exam: ATRAUMATIC, NORMOCEPHALIC - Eye Exam Eye Exam: EOMI - ENT Exam ENT Exam: Mucous Membranes Moist - Neck Exam Additional comments: L neck incisional scar - Respiratory Exam Respiratory Exam: Clear to Auscultation Bilateral, NORMAL BREATHING PATTERN. absent: Rhonchi, Wheezes - Cardiovascular Exam Cardiovascular Exam: REGULAR RHYTHM, +S1, +S2 - GI/Abdominal Exam GI & Abdominal Exam: Normal Bowel Sounds, Soft. absent: Tenderness - Extremities Exam Extremities exam: Positive for: normal inspection. Negative for: calf tenderness, pedal edema, tenderness Additional comments: L axilla mildly tender to palpation, warm to touch, mild edematous changes - Neurological Exam Neurological exam: Alert, CN II-XII Intact, Oriented x3 - Psychiatric Exam Psychiatric exam: Normal Affect, Normal Mood - Skin Skin Exam: Dry, Intact Results - Vital Signs Recent Vital Signs: Last Vital Signs Temp 98.4 F 03/22/19 21:22 Pulse 79 03/22/19 21:22 Resp 18 03/22/19 21:22 BP 155/72 H 03/22/19 21:22 Pulse Ox 96 03/22/19 22:25 - Labs Result Diagrams: 03/22/19 22:05 03/22/19 22:05 Labs: Laboratory Results - last 24 hr 03/22/19 03/22/19 03/22/19 22:05 22:05 22:05 WBC 8.0 RBC 4.59 Hgb 13.1 Hct 38.7 MCV 84.4 MCH 28.6 MCHC 33.8 RDW 14.2 Plt Count 211 MPV 9.0 Neut % (Auto) 95.3 H Lymph % (Auto) 3.1 L [place] % (Auto) 1.2 Eos % (Auto) 0.0 Baso % (Auto) 0.4 Neut # (Auto) 7.6 H Lymph # (Auto) 0.3 L [place] # (Auto) 0.1 Eos # (Auto) 0.0 Baso # (Auto) 0.0 Neutrophils % (Manual) 93 H Lymphocytes % (Manual) 5 L Monocytes % (Manual) 2 Platelet Estimate Normal PT 13.0 H INR 1.2 APTT 36.6 H Sodium 142 Potassium 4.1 Chloride 104 Carbon Dioxide 25 Anion Gap 16 BUN 16 Creatinine 0.8 Est GFR ( Amer) > 60 Est GFR (Non-Af Amer) > 60 Random Glucose 151 H D Calcium 9.6 Total Bilirubin 0.2 AST 28 ALT 32 Alkaline Phosphatase 77 Total Protein 7.8 Albumin 4.5 Globulin 3.3 Albumin/Globulin Ratio 1.4 Blood Type 03/22/19 22:05 WBC RBC Hgb Hct MCV MCH MCHC RDW Plt Count MPV Neut % (Auto) Lymph % (Auto) [place] % (Auto) Eos % (Auto) Baso % (Auto) Neut # (Auto) Lymph # (Auto) [place] # (Auto) Eos # (Auto) Baso # (Auto) Neutrophils % (Manual) Lymphocytes % (Manual) Monocytes % (Manual) Platelet Estimate PT INR APTT Sodium Potassium Chloride Carbon Dioxide Anion Gap BUN Creatinine Est GFR ( Amer) Est GFR (Non-Af Amer) Random Glucose Calcium Total Bilirubin AST ALT Alkaline Phosphatase Total Protein Albumin Globulin Albumin/Globulin Ratio Blood Type A POSITIVE Assessment & Plan - Assessment and Plan (Free Text) Assessment: Patient is a 43 year old male with PMHx lymphoma (currently on chemo), nephrolithiasis, anxiety, cholecystitis, who presented initially with complaints of left arm pain and found to have DVT of the left subclavian to upper portion left brachial vein at [facility]. Likely hypercoaguable 2/2 malignancy. First dose of Lovenox given at 15:[address] [facility]. Plan: [place] DVT -Tele -Upper extremity dopplers 03/22 (records from [facility]): DVT of the left subclavian to upper portion left brachial vein -CTA performed at [facility] 03/22: Negative for PE -First dose Lovenox SC at [facility] 15:00 Meds -Lovenox 120mg SC Q12 (next dose at 03:00) -Motrin 800 mg PO Q6 prn -Day team to consider for possible discharge on Lovenox as outpatient (if insurance will cover) Lymphoma -On chemotherapy with Dr. Brown. Next chemo session scheduled for this sunday -Hold Heme/Onc consult, pending patient discharge prior to next chemo Anxiety -Home Klonopin 1mg BID prn PPx -Lovenox 120 mg SC Q12 Assessment and plan d/w Dr. Prabha White, PGY-1 <Mau Armando - Last Filed: 03/23/19 06:25> Results - Vital Signs Recent Vital Signs: Last Vital Signs Temp 97.7 F 03/23/19 03:25 Pulse 68 03/23/19 03:45 Resp 20 03/23/19 03:25 BP 130/61 03/23/19 03:25 Pulse Ox 95 03/23/19 03:25 - Labs Result Diagrams: 03/22/19 22:05 03/22/19 22:05 Labs: Laboratory Results - last 24 hr 03/22/19 03/22/19 03/22/19 22:05 22:05 22:05 WBC 8.0 RBC 4.59 Hgb 13.1 Hct 38.7 MCV 84.4 MCH 28.6 MCHC 33.8 RDW 14.2 Plt Count 211 MPV 9.0 Neut % (Auto) 95.3 H Lymph % (Auto) 3.1 L [place] % (Auto) 1.2 Eos % (Auto) 0.0 Baso % (Auto) 0.4 Neut # (Auto) 7.6 H Lymph # (Auto) 0.3 L [place] # (Auto) 0.1 Eos # (Auto) 0.0 Baso # (Auto) 0.0 Neutrophils % (Manual) 93 H Lymphocytes % (Manual) 5 L Monocytes % (Manual) 2 Platelet Estimate Normal PT 13.0 H INR 1.2 APTT 36.6 H Sodium 142 Potassium 4.1 Chloride 104 Carbon Dioxide 25 Anion Gap 16 BUN 16 Creatinine 0.8 Est GFR ( Amer) > 60 Est GFR (Non-Af Amer) > 60 Random Glucose 151 H D Calcium 9.6 Total Bilirubin 0.2 AST 28 ALT 32 Alkaline Phosphatase 77 Total Protein 7.8 Albumin 4.5 Globulin 3.3 Albumin/Globulin Ratio 1.4 Blood Type Antibody Screen 03/22/19 22:05 WBC RBC Hgb Hct MCV MCH MCHC RDW Plt Count MPV Neut % (Auto) Lymph % (Auto) [place] % (Auto) Eos % (Auto) Baso % (Auto) Neut # (Auto) Lymph # (Auto) [place] # (Auto) Eos # (Auto) Baso # (Auto) Neutrophils % (Manual) Lymphocytes % (Manual) Monocytes % (Manual) Platelet Estimate PT INR APTT Sodium Potassium Chloride Carbon Dioxide Anion Gap BUN Creatinine Est GFR ( Amer) Est GFR (Non-Af Amer) Random Glucose Calcium Total Bilirubin AST ALT Alkaline Phosphatase Total Protein Albumin Globulin Albumin/Globulin Ratio Blood Type A POSITIVE Antibody Screen Negative Assessment & Plan - Date & Time Date: 03/23/19 (I have seen and examined the patient. I agree with the findings and plan of care as documented by Dr. White. Patient arriving after leaving another hospital in [place]. Diagnosed with acute DVT in upper extremity. CTA negative for PE. Lovenox given. Continue Lovenox for now. Plan for discharge with proper anticoagulation. Patient with history of lymphoma. Continue outpatient follow up with patient's heme/onc. Monitor for acute changes.) Time: 06:23 Attending/Attestation - Attestation I have personally seen and examined this patient.: Yes I have fully participated in the care of the patient.: Yes I have reviewed all pertinent clinical information: Yes
[2019-03-23 01:33] VITALS: RESP 20
[2019-03-23] MEDS ORDERED: Enoxaparin 120 mg Syringe SC SCH (03:00)
[2019-03-23 03:26] VITALS: TEMP 97.7
[2019-03-23 07:16] VITALS: BP 131/69; PULSE 64; O2SAT 98
--- NOTE | 2019-03-23 07:47 | CP.PCM.PN ---
Subjective - Date & Time of Evaluation Date of Evaluation: 03/23/19 Time of Evaluation: 07:47 Objective - Vital Signs/Intake and Output Vital Signs (last 24 hours): Temp Pulse Resp BP Pulse Ox 97.7 F 64 20 131/69 98 03/23/19 07:15 03/23/19 07:15 03/23/19 07:15 03/23/19 07:15 03/23/19 07:15 Intake and Output: 03/23/19 03/23/19 06:59 18:59 Intake Total 120 Balance 120 - Medications Medications: Current Medications Clonazepam (Klonopin) 1 mg PO BID PRN PRN Reason: Anxiety Enoxaparin Sodium (Lovenox) 120 mg SC Q12H [facility] Last Admin: 03/23/19 03:20 Dose: 120 mg Ibuprofen (Motrin Tab) 800 mg PO QID PRN PRN Reason: Pain, Mild (1-3) Last Admin: 03/23/19 00:53 Dose: 800 mg - Labs Labs: 03/22/19 22:05 03/22/19 22:05 PT 13.0 SECONDS (9.7-12.2) H 03/22/19 22:05 INR 1.2 03/22/19 22:05 APTT 36.6 SECONDS (21-34) H 03/22/19 22:05
[2019-03-23 08:05] LABS: BASO % 0.3 % (0.0-2.0); HEMOGLOBIN 13.1 g/dL (12.0-18.0); LYMPH # 0.7 K/uL (1.0-4.3); LYMPH % 5.5 % (20.0-40.0); MEAN CELL VOLUME 84.2 fL (80.0-94.0); MEAN CORPUSCULAR HEMOGLOBIN 28.6 pg (27.0-31.0); MEAN CORPUSCULAR HGB CONC 33.9 g/dL (33.0-37.0); MONO # 0.9 K/uL (0.0-0.8); MONO % 7.1 % (0.0-10.0); NEUT # 10.9 K/uL (1.8-7.0); NEUT % 87.1 % (50.0-75.0); PLATELET COUNT 219 K/uL (130-400); RBC 4.58 Mil/uL (4.40-5.90)
[2019-03-23 08:06] LABS: WHITE BLOOD COUNT 12.5 K/uL (4.8-10.8)
[2019-03-23 08:36] LABS: ALB/GLOB RATIO 1.3 (1.0-2.1); ALT/SGPT 34 U/L (21-72); AST/SGOT 22 U/L (17-59); BLOOD UREA NITROGEN 17 mg/dL (9-20); CALCIUM 9.2 mg/dl (8.6-10.4); GFR NON-AFRICAN AMERICAN > 60
[2019-03-23 08:50] LABS: ANISOCYTOSIS SLIGHT; BANDS 3 % (0-2); LYMPHOCYTE 6 % (20-40); MONOCYTE 4 % (0-10); NEUTROPHIL 87 % (50-75); PLATELET ESTIMATE NORMAL (NORMAL); TOTAL CELLS COUNTED 100
[2019-03-23 08:51] LABS: HYPOCHROMIC SLIGHT; POLYCHROMIC SLIGHT
--- NOTE | 2019-03-23 10:22 | CP.PCM.DIS ---
<Agnieszka Gómez - Last Filed: 03/23/19 14:27> Provider - Provider Date of Admission: 03/22/19 22:15 Attending physician: Mau Armando MD Primary care physician: Ki Villasenor MD Time Spent in preparation of Discharge (in minutes): 35 Diagnosis - Discharge Diagnosis (1) DVT (deep venous thrombosis) Status: Chronic (2) Lymphoma Status: Chronic Hospital Course - Lab Results Lab Results: Most Recent Lab Values WBC 12.5 K/uL (4.8-10.8) H D 03/23/19 07:54 RBC 4.58 Mil/uL (4.40-5.90) 03/23/19 07:54 Hgb 13.1 g/dL (12.0-18.0) 03/23/19 07:54 Hct 38.6 % (35.0-51.0) 03/23/19 07:54 MCV 84.2 fL (80.0-94.0) 03/23/19 07:54 MCH 28.6 pg (27.0-31.0) 03/23/19 07:54 MCHC 33.9 g/dL (33.0-37.0) 03/23/19 07:54 RDW 14.0 % (11.5-14.5) 03/23/19 07:54 Plt Count 219 K/uL (130-400) 03/23/19 07:54 MPV 9.0 fL (7.2-11.7) 03/23/19 07:54 Neut % (Auto) 87.1 % (50.0-75.0) H 03/23/19 07:54 Lymph % (Auto) 5.5 % (20.0-40.0) L 03/23/19 07:54 [place] % (Auto) 7.1 % (0.0-10.0) 03/23/19 07:54 Eos % (Auto) 0.0 % (0.0-4.0) 03/23/19 07:54 Baso % (Auto) 0.3 % (0.0-2.0) 03/23/19 07:54 Neut # (Auto) 10.9 K/uL (1.8-7.0) H 03/23/19 07:54 Lymph # (Auto) 0.7 K/uL (1.0-4.3) L 03/23/19 07:54 [place] # (Auto) 0.9 K/uL (0.0-0.8) H 03/23/19 07:54 Eos # (Auto) 0.0 K/uL (0.0-0.7) 03/23/19 07:54 Baso # (Auto) 0.0 K/uL (0.0-0.2) 03/23/19 07:54 Neutrophils % (Manual) 87 % (50-75) H 03/23/19 07:54 Band Neutrophils % 3 % (0-2) H 03/23/19 07:54 Lymphocytes % (Manual) 6 % (20-40) L 03/23/19 07:54 Monocytes % (Manual) 4 % (0-10) 03/23/19 07:54 Platelet Estimate Normal (NORMAL) 03/23/19 07:54 Polychromasia Slight 03/23/19 07:54 Hypochromasia (manual) Slight 03/23/19 07:54 Anisocytosis (manual) Slight 03/23/19 07:54 PT 13.0 SECONDS (9.7-12.2) H 03/22/19 22:05 INR 1.2 03/22/19 22:05 APTT 36.6 SECONDS (21-34) H 03/22/19 22:05 Sodium 140 mmol/L (132-148) 03/23/19 07:55 Potassium 4.0 mmol/L (3.6-5.2) 03/23/19 07:55 Chloride 106 mmol/L (98-107) 03/23/19 07:55 Carbon Dioxide 25 mmol/L (22-30) 03/23/19 07:55 Anion Gap 13 (10-20) 03/23/19 07:55 BUN 17 mg/dL (9-20) 03/23/19 07:55 Creatinine 0.6 mg/dL (0.8-1.5) L 03/23/19 07:55 Est GFR ( Amer) > 60 03/23/19 07:55 Est GFR (Non-Af Amer) > 60 03/23/19 07:55 Random Glucose 114 mg/dL (75-110) H D 03/23/19 07:55 Calcium 9.2 mg/dl (8.6-10.4) 03/23/19 07:55 Total Bilirubin 0.2 mg/dL (0.2-1.3) 03/23/19 07:55 AST 22 U/L (17-59) 03/23/19 07:55 ALT 34 U/L (21-72) 03/23/19 07:55 Alkaline Phosphatase 81 U/L (38-126) 03/23/19 07:55 Total Protein 7.1 g/dL (6.3-8.3) 03/23/19 07:55 Albumin 4.0 g/dL (3.5-5.0) 03/23/19 07:55 Globulin 3.0 gm/dL (2.2-3.9) 03/23/19 07:55 Albumin/Globulin Ratio 1.3 (1.0-2.1) 03/23/19 07:55 Blood Type A POSITIVE 03/22/19 22:05 Antibody Screen Negative 03/22/19 22:05 - Hospital Course Hospital Course: On admission: Patient is a 43 year old male with PMHx lymphoma (currently on chemo), nephrolithiasis, anxiety, cholecystitis, who presents with complaints of left arm pain and found to have DVT at [facility] on [address] [place] [address] in [place] earlier today. Patient was initially diagnosed with Lymphoma 5-6 years ago, went into remission, and now has had recent recurrence, on chemotherapy with recent lymph node resection. Patient states that for the past week he has noticed pain in his left axilla and shoulder, with some swelling in the axilla. Patient denies history of DVT or PE in the past. Denies tobacco use. Patient went to [facility] ER on [address] [place] [address] today [place] in the city and they recommended admission, and patient opted to [facility] for admisison. Had CT angio done at [facility] which was negative for PE. Patient denies shortness of breath, dizziness, focal weakness, headache, nausea, vomiting. Hospital course: Patient was admitted for left arm pain after patient was reportedly found to have deep venous thrombosis of left upper extremity. Imaging from [facility] including dopplers from 03/22/19 DVT of left subclavian to upper portion of left brachial vein and CT angio 03/22/19 revealed was negative for PE. He was treated with Lovenox 120mg subcutaneously every 12 hours. Patient has a history of lymphoma and is currently on chemotherapy with Dr. Brown, with next chemotherapy on Sunday. Patient was alert, oriented, breathing comfortably, ambulatory and in no acute distress. He was advised of the importance of taking Eliquis for DVT of left upper extremity. Discharge instructions: Please follow up with Dr. Brown on Sunday for regular chemo treatment. Please take your Eliquis 5mg twice daily for DVT in left upper extremity. Please follow up with Dr. Villasenor on Sunday. Do not use left arm until cleared by Dr. Brown. Discharge Exam - Head Exam Head Exam: ATRAUMATIC, NORMOCEPHALIC - Eye Exam Eye Exam: EOMI, PERRL - ENT Exam ENT Exam: Mucous Membranes Moist - Neck Exam Neck exam: Full Rom Additional comments: Mild left axillary lymphadenopathy - Respiratory Exam Respiratory Exam: Clear to PA & Lateral, NORMAL BREATHING PATTERN. absent: Rales, Rhonchi, Wheezes, Respiratory Distress - Cardiovascular Exam Cardiovascular Exam: REGULAR RHYTHM, +S1, +S2. absent: Gallop, Rubs, Systolic Murmur - GI/Abdominal Exam GI & Abdominal Exam: Normal Bowel Sounds, Soft. absent: Distended, Firm, Guarding, Rigid, Tenderness - Extremities Exam Extremities exam: pedal pulses present Additional comments: no calf tenderness, no pedal edema. Left upper extremity: mild edema of left upper extremity compared to right, good radial pulses. - Neurological Exam Neurological exam: Alert, Oriented x3 - Psychiatric Exam Psychiatric exam: Normal Affect, Normal Mood - Skin Skin Exam: Dry, Intact, Warm Discharge Plan - Discharge Medications Prescriptions: Apixaban [Eliquis] 5 mg PO BID 30 Days #60 tablet - Follow Up Plan Condition: STABLE Disposition: HOME/ ROUTINE Additional Instructions: Please follow up with Dr. Brown on Sunday for regular chemo treatment. Please take your Eliquis 5mg twice daily for DVT in left upper extremity. Please follow up with Dr. Villasenor on Sunday. Do not use left arm until cleared by Dr. Brown. Prescriptions: Eliquis 5mg PO BID Disp # 30. Referrals: Ki Villasenor [Primary Care Provider] - Elham Brown MD [Staff Provider] - <Jv Skinner - Last Filed: 03/24/19 07:40> Provider - Provider Date of Admission: 03/22/19 22:15 Attending physician: Mau Armando MD Primary care physician: Ki Villasenor MD Hospital Course - Lab Results Lab Results: Most Recent Lab Values WBC 12.5 K/uL (4.8-10.8) H D 03/23/19 07:54 RBC 4.58 Mil/uL (4.40-5.90) 03/23/19 07:54 Hgb 13.1 g/dL (12.0-18.0) 03/23/19 07:54 Hct 38.6 % (35.0-51.0) 03/23/19 07:54 MCV 84.2 fL (80.0-94.0) 03/23/19 07:54 MCH 28.6 pg (27.0-31.0) 03/23/19 07:54 MCHC 33.9 g/dL (33.0-37.0) 03/23/19 07:54 RDW 14.0 % (11.5-14.5) 03/23/19 07:54 Plt Count 219 K/uL (130-400) 03/23/19 07:54 MPV 9.0 fL (7.2-11.7) 03/23/19 07:54 Neut % (Auto) 87.1 % (50.0-75.0) H 03/23/19 07:54 Lymph % (Auto) 5.5 % (20.0-40.0) L 03/23/19 07:54 [place] % (Auto) 7.1 % (0.0-10.0) 03/23/19 07:54 Eos % (Auto) 0.0 % (0.0-4.0) 03/23/19 07:54 Baso % (Auto) 0.3 % (0.0-2.0) 03/23/19 07:54 Neut # (Auto) 10.9 K/uL (1.8-7.0) H 03/23/19 07:54 Lymph # (Auto) 0.7 K/uL (1.0-4.3) L 03/23/19 07:54 [place] # (Auto) 0.9 K/uL (0.0-0.8) H 03/23/19 07:54 Eos # (Auto) 0.0 K/uL (0.0-0.7) 03/23/19 07:54 Baso # (Auto) 0.0 K/uL (0.0-0.2) 03/23/19 07:54 Neutrophils % (Manual) 87 % (50-75) H 03/23/19 07:54 Band Neutrophils % 3 % (0-2) H 03/23/19 07:54 Lymphocytes % (Manual) 6 % (20-40) L 03/23/19 07:54 Monocytes % (Manual) 4 % (0-10) 03/23/19 07:54 Platelet Estimate Normal (NORMAL) 03/23/19 07:54 Polychromasia Slight 03/23/19 07:54 Hypochromasia (manual) Slight 03/23/19 07:54 Anisocytosis (manual) Slight 03/23/19 07:54 PT 13.0 SECONDS (9.7-12.2) H 03/22/19 22:05 INR 1.2 03/22/19 22:05 APTT 36.6 SECONDS (21-34) H 03/22/19 22:05 Sodium 140 mmol/L (132-148) 03/23/19 07:55 Potassium 4.0 mmol/L (3.6-5.2) 03/23/19 07:55 Chloride 106 mmol/L (98-107) 03/23/19 07:55 Carbon Dioxide 25 mmol/L (22-30) 03/23/19 07:55 Anion Gap 13 (10-20) 03/23/19 07:55 BUN 17 mg/dL (9-20) 03/23/19 07:55 Creatinine 0.6 mg/dL (0.8-1.5) L 03/23/19 07:55 Est GFR ( Amer) > 60 03/23/19 07:55 Est GFR (Non-Af Amer) > 60 03/23/19 07:55 Random Glucose 114 mg/dL (75-110) H D 03/23/19 07:55 Calcium 9.2 mg/dl (8.6-10.4) 03/23/19 07:55 Total Bilirubin 0.2 mg/dL (0.2-1.3) 03/23/19 07:55 AST 22 U/L (17-59) 03/23/19 07:55 ALT 34 U/L (21-72) 03/23/19 07:55 Alkaline Phosphatase 81 U/L (38-126) 03/23/19 07:55 Total Protein 7.1 g/dL (6.3-8.3) 03/23/19 07:55 Albumin 4.0 g/dL (3.5-5.0) 03/23/19 07:55 Globulin 3.0 gm/dL (2.2-3.9) 03/23/19 07:55 Albumin/Globulin Ratio 1.3 (1.0-2.1) 03/23/19 07:55 Blood Type A POSITIVE 03/22/19 22:05 Antibody Screen Negative 03/22/19 22:05 Attending/Attestation - Attestation I have personally seen and examined this patient.: Yes I have fully participated in the care of the patient.: Yes I have reviewed all pertinent clinical information, including history, physical exam and plan: Yes Notes (Text): 03/24/19 07:36 Medical attending: Patient was seen and examined by me as well with the medical residents The patient was actively walking around in the hallway. He was already dressed and eager to leave. We discussed his ultrasound findings that he had from the other hospital. He did not want to stay there so he came to this hospital. 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
--- NOTE | 2019-03-24 13:38 | CARD ---
APPROVED REPORT Date of service: 03/22/2019 EKG Measurement Heart [id number] <Conclusion> Normal sinus rhythm Normal ECG
== END 2019-03-23 12:15 | disposition home or self-care (01) | DRG 300 ==
LOC: SUPCPDRO 21:10 → C.ER 21:10 → C.9E 22:15 → C.6T 22:41
PROVIDERS: ADMIT Family Medicine; ATTEND Family Medicine
DX: I82.722 Chronic embolism and thrombosis of deep veins of left upper extremity (principal); C85.90 Non-Hodgkin lymphoma, unspecified, unspecified site; D68.59 Other primary thrombophilia; F41.9 Anxiety disorder, unspecified; F32.9 Major depressive disorder, single episode, unspecified; F17.210 Nicotine dependence, cigarettes, uncomplicated; Z79.01 Long term (current) use of anticoagulants

== ENCOUNTER 2019-03-30 02:14 | Emergency (ER) | payer BC ==
[2019-03-30 02:26] VITALS: BP 114/71; TEMP 97.9; O2SAT 97
[2019-03-30 02:31] VITALS: BMI 37.6
[2019-03-30 02:36] VITALS: PULSE 73; RESP 19
--- NOTE | 2019-03-30 02:38 | C.PDOC ---
History Of Present Illness 44 year old male with PMHx of lymphoma (currently on chemo), nephrolithiasis, anxiety, cholecystitis presents to the ED for evaluation of left arm pain. Patient was D/C on 03/24 s/p LUE DVT. Patient had imaging from [facility] including dopplers from 03/22/19 DVT or left subclavian to upper portion of left brachial vein and CT angio 03/22/19 revealed was negative for PE. Patient was treated with Lovenox 120 mg. Patient report being compliant with medications. Contrary to triage patient denies chest pain, SOB, palpitations. DC 03/24 S/P LUE DVT PMHx lymphoma (currently on chemo), nephrolithiasis, anxiety, cholecystitis, Imaging from [facility] including dopplers from 03/22/19 DVT of left subclavian to upper portion of left brachial vein and CT angio 03/22/19 revealed was negative for PE. He was treated with Lovenox 120mg Time Seen by Provider: 03/30/19 02:34 Chief Complaint (Nursing): Chest Pain History Per: Patient History/Exam Limitations: no limitations Onset/Duration Of Symptoms: Hrs Current Symptoms Are (Timing): Still Present Quality: "Pain" Recent travel outside of the [place]: No Additional History Per: Patient Past Medical History Reviewed: Historical Data, Nursing Documentation, Vital Signs Vital Signs: Last Vital Signs Temp 97.9 F 03/30/19 02:20 Pulse 74 03/30/19 02:20 Resp 22 03/30/19 02:20 BP 114/71 03/30/19 02:20 Pulse Ox 97 03/30/19 02:20 - Medical History PMH: Anemia (hx blood transfusions), Anxiety, Back Problems, Gall Bladder Disease (GB removed), Kidney Stones, Malignancy (lymphoma), Chronic Kidney Disease Surgical History: Cholecystectomy (lap. tracie. 09/30/2018) Family History: States: Unknown Family Hx - Social History Hx Tobacco Use: No Hx Alcohol Use: No Hx Substance Use: No - Immunization History Hx Tetanus Toxoid Vaccination: No Hx Influenza Vaccination: No Hx Pneumococcal Vaccination: No Review Of Systems Constitutional: Negative for: Fever, Chills Cardiovascular: Negative for: Chest Pain, Palpitations Respiratory: Negative for: Shortness of Breath Gastrointestinal: Negative for: Nausea, Vomiting, Abdominal Pain Musculoskeletal: Positive for: Arm Pain Skin: Negative for: Rash Neurological: Negative for: Weakness, Numbness, Headache Physical Exam - Physical Exam Appears: Non-toxic, No Acute Distress Skin: Normal Color, Warm, Dry Head: Atraumatic, Normacephalic Eye(s): bilateral: Normal Inspection Neck: Normal ROM, Supple Chest: Symmetrical Cardiovascular: Rhythm Regular Respiratory: Normal Breath Sounds, No Rales, No Rhonchi, No Wheezing Gastrointestinal/Abdominal: Soft, No Tenderness, No Guarding, No Rebound Extremity: Normal ROM, No Tenderness, No Swelling Neurological/Psych: Oriented x3, Normal Speech, Normal Cognition, Normal Motor, Normal Sensation Gait: Steady ED Course And Treatment ECG: Interpreted By Me ECG Rhythm: Sinus Rhythm ECG Interpretation: Normal, No Changes From Prior Rate From EC O2 Sat by Pulse Oximetry: 97 (ON RA) Pulse Ox Interpretation: Normal Progress - Data Reviewed Data Reviewed: EKG, Old records Medical Decision Making Medical Decision Making: Plan: * Zofran 4 mg PO Disposition Counseled Patient/Family Regarding: Diagnosis, Need For Followup, Rx Given - Disposition Referrals: YOUR,PMD [Other] Disposition: HOME/ ROUTINE Disposition Time: 03:01 Condition: IMPROVED Additional Instructions: RETURN IF WORSENING SWELLING, PAIN ,CHEST PAIN, DIFFICULTY BREATHING. CONTINUE ELAQUIS PRESCRIBED. Prescriptions: Ondansetron ODT [Zofran ODT] 4 mg PO TID PRN #12 odt PRN Reason: Nausea/Vomiting Instructions: Deep Vein Thrombosis (Blood Clots in the Legs) (DC) Forms: [facility] (Somali) - Clinical Impression Clinical Impression: Arm pain, Nausea - Scribe Statement The provider has reviewed the documentation as recorded by the [employer] Daniels All medical record entries made by the Scribe were at my direction and personally dictated by me. I have reviewed the chart and agree that the record accurately reflects my personal performance of the history, physical exam, medical decision making, and the department course for this patient. I have also personally directed, reviewed, and agree with the discharge instructions and disposition.
--- NOTE | 2019-03-31 15:35 | CARD ---
APPROVED REPORT Date of service: 03/30/2019 EKG Measurement Heart [id number] <Conclusion> Normal sinus rhythm Incomplete right bundle branch block Borderline ECG
== END 2019-03-30 03:30 | disposition home or self-care (01) ==
LOC: C.ER 02:14
DX: M79.602 Pain in left arm (principal); R11.0 Nausea; Z85.72 Personal history of non-Hodgkin lymphomas